=== PATIENT | male | born 1990 | race African-American/Black ===

== ENCOUNTER 2016-09-23 09:59 | Inpatient (IN) ==
--- NOTE | 2016-09-23 10:04 | Emergency Department Note ---
Arrival - Arrival Time Seen by Provider: 09/23/16 10:01 - History of Present Illness HPI Narrative: This patient came into the hospital with cough and shortness of breath with chest pain for about a week and he collapsed in the waiting room was brought immediately back to room 8. He quickly regained consciousness when she was in the bed and states that he is having chest pain and problems breathing. He has no significant past medical history other than hidradenitis which was excised in both axilla had skin grafts placed. He does smoke cigarettes and drink alcohol and also has a history of drug use. Allergies/Adverse Reactions: Allergies Allergy/AdvReac Type Severity Reaction Status Date / Time guaifenesin [From Robitussin] Allergy ANAPHYLAXIS Verified 12/08/15 01:52 iodine Allergy ANAPHYLAXIS Verified 09/23/16 10:05 Home Medications: Home Medications Medication Instructions Recorded Confirmed Type No Known Home Medications [No 09/23/16 09/23/16 History Known Home Medications] Review of System - Review of System Constitutional: Present: as per HPI Eyes: Present: as per HPI Head/Ears/Nose/Throat: Present: see HPI Respiratory: Present: as per HPI Cardiovascular: Present: as per HPI Gastrointestinal: Present: as per HPI Genitourinary male: Present: as per HPI Musculoskeletal: Present: as per HPI Skin: Present: as per HPI Neurological: Present: as per HPI Psychiatric: Present: as per HPI Endocrine: Present: as per HPI Hematological/Lymphatic: Present: as per HPI Allergic/Immunologic: Present: as per HPI Medical,Surgical,& Family Hx - Medical History Musculoskeletal: History of: Musculoskeletal Problems (skin graft from left thigh to left axilla 2012) - Surgical History Neurologic Surgeries: Patient denies: Neurologic Surgery - Family History Family History: Reports;: Family Hypertension (mother) - Social History Smoking Status: Current every day smoker Exam Vital Signs: Vital Signs Temperature 99.4 F 09/23/16 10:01 Pulse Rate 130 H 09/23/16 10:01 Respiratory Rate 20 09/23/16 10:01 Blood Pressure 125/87 09/23/16 10:01 O2 Sat by Pulse Oximetry 95 09/23/16 10:01 - General General appearance: alert, in distress - Head Head exam: Present: atraumatic, normocephalic - Eye Eye exam: Present: normal appearance, PERRL, EOMI. Absent: scleral icterus - ENT ENT exam: Present: normal exam - Neck Neck exam: Present: normal inspection, full ROM - Chest Chest inspection: Present: normal inspection, symmetric chest wall rise. Absent : tenderness - Respiratory Respiratory exam: Present: normal lung sounds bilaterally. Absent: accessory muscle use, prolonged expiratory phase - Cardiovascular Cardiovascular exam: Present: normal rhythm, tachycardia - Abdominal Exam Abdominal exam: Present: soft, normal bowel sounds. Absent: distention, tenderness - Extremities Exam Extremities exam: Present: normal inspection - Back Exam Back exam: Present: normal inspection - Neurological Exam Neurological exam: Present: alert, oriented X3 - Psychiatric Psychiatric exam: Present: normal affect, normal mood - Skin Skin exam: Present: warm, dry Course Course Narrative: This patient was evaluated in the ER with some lab work as well as EKG and chest x-ray and he was found to have an elevated d-dimer with essentially a normal chest x-ray as well as an ABG that showed a respiratory alkalosis with hypoxemia. This is all concerning for pulmonary embolism along with his clinical evaluation so he was started on a heparin drip and he was sent to the nuclear medicine testing for a VQ scan given his anaphylactic iodine allergy and the fact that his creatinine is 1.7. An ultrasound of his legs was also ordered to evaluate for DVT. I discussed his care with the hospitalist on-call and they will come and see him shortly. We ordered a hypercoagulable workup as well. Results - Labs CBC & BMP: 09/23/16 10:09 09/23/16 10:09 Disposition Clinical Impression: Pulmonary embolism, Upper respiratory infection Case discussed with: patient Disposition: Still a Patient Condition: Guarded Instructions: Pulmonary Embolism (GEN) Time of Disposition: 11:21
[2016-09-23] MEDS ORDERED: LACTATED RINGERS 2,000 ML IV ONE (10:17)
[2016-09-23] MEDS ORDERED: SODIUM CHLORIDE 0.9% 2,000 ML IV STA (10:18)
[2016-09-23 10:22] LABS: Basophils # 0.1 10*3/uL (0.0-0.2); Basophils % 0.6 % (0.0-0.8); Eosinophils % 18.5 % (0.00-10.9); Hematocrit 43.4 VOL% (42.0-52.0); Hemoglobin 14.3 GM/DL (14.0-18.0); Immature Granulocytes % 0.3 %; Immature Granulocytes Absolute 0.05 #; Lymphocytes # 3.7 10*3/uL (1.4-4.0); Lymphocytes % 23.2 % (21.2-54.2); Mean Corpuscular HGB Conc 32.9 GM/DL (32-36); Mean Corpuscular Hemoglobin 28 PG (27-34); Mean Corpuscular Volume 85.9 FL (87-102); Mean Platelet Volume 10.5 FL (9.6-12.0); Monocytes # 1.2 10*3/uL (0.11-0.8); Monocytes % 7.5 % (1.7-12.7); Neutrophils % 49.9 % (38.7-73.9); Platelet Count 278 10*3/uL (130-400); Red Blood Count 5.05 10*6/uL (3.8-5.5); Red Cell Distribution Width 12.8 % (9.3-17.3); White Blood Count 16.1 10*3/uL (4.5-13.71)
[2016-09-23] MEDS ORDERED: cefTRIAXone 1,000 MG in SODIUM CHLORIDE 0.9% 100 ML IV STA (10:30)
--- NOTE | 2016-09-23 10:41 | XRay Report ---
XR chest 1V portable Indication: Cough, dyspnea Comparison: Chest x-ray dated August 03, 2016 Technique: Single frontal view of the chest Findings: Cardiomediastinal silhouette is stable in configuration. Mild left basilar atelectasis suggested. No pneumothorax. Osseous and surrounding soft tissue structures appear grossly unchanged. IMPRESSION: Mild left basilar atelectasis. PROCEDURE INTERPRETED AT [facility] DEPARTMENT OF RADIOLOGY Final Report Signed by: Dr Jose Lai
[2016-09-23 10:45] LABS: Calcium 8.1 MG/DL (8.5-10.1); Magnesium 2.1 MG/DL (1.8-2.4); Osmolality,Calculated 278.5 MOS/KG (273-304); Potassium 4.2 MMOL/L (3.5-5.1)
[2016-09-23 10:45] LABS: ABG Base Excess -20.5 MMOL/L (-2.5-2.5); ABG HCO3 8.2 MMOL/L (20-26); ABG Oxygen Saturation 32.6 % (95-100); ABG PH 7.373 (7.35-7.45); ABG TCO2 5.4 MMOL/L (23-27)
[2016-09-23 10:47] LABS: Lactic Acid 2.5 MMOL/L (0.4-2.0)
[2016-09-23 10:48] LABS: Eosinophils 27 % (0-10); Lymphocytes 22 % (20-55); Platelet Estimate Normal; Segmented Neutrophils 45 % (50-85); Total Cells Counted 100
[2016-09-23 10:49] LABS: ABG PCO2 9.3 MM HG (35-48); ABG PO2 23.3 MM HG (80-95)
[2016-09-23 10:49] LABS: Hypochromasia Slight
[2016-09-23] MEDS ORDERED: cefTRIAXone 1,000 MG VIAL ONE (10:56)
[2016-09-23 11:11] LABS: ABG Base Excess -0.7 MMOL/L (-2.5-2.5); ABG HCO3 23.7 MMOL/L (20-26); ABG Oxygen Saturation 91.1 % (95-100); ABG PCO2 24.5 MM HG (35-48); ABG PO2 56.8 MM HG (80-95); ABG TCO2 17.8 MMOL/L (23-27)
[2016-09-23] MEDS ORDERED: HEPARIN 5,000 UNIT/1 ML VIAL IV ONE (11:12)
[2016-09-23] MEDS ORDERED: HEPARIN DRIP 25,000 UNITS/500 ML PREMIX IV ONE (11:17)
[2016-09-23] MEDS ORDERED: HEPARIN 5,000 UNIT/1 ML VIAL ONE (11:17)
[2016-09-23 11:32] LABS: INR 1.1; PT Patient Result 11.9 SECS; Partial Thromboplastin Time 32.7 SECS (0-40)
--- NOTE | 2016-09-23 11:40 | EKG Report ---
Stationary ECG Study [facility] Emergency Department ER Test Date: 09/23/2016 10:03:25 AM Pat Name: EVERARDO NINA Department: Room: Gender: M Practice Advisor: MARTIN Espinal : 1990 Requested by: Stuart Elmore Order Number: [id number] Reading MD: CATHI GIBSON Intervals [place] Rate: 129 P: 66 WI: 142 QRS: 75 QRSD: 92 T: 27 QT: 324 QTc: 400 Interpretive Statements SINUS TACHYCARDIA NONSPECIFIC T-WAVE ABNORMALITY ABNORMAL RHYTHM ECG Electronically Signed On 09-23-16 13:26:55 [employer]OL SMITH by CATHI GIBSON [email or web address]
[2016-09-23 11:43] LABS: Barbiturates Screen,Urine Negative (Negative); Benzodiazepines Screen,Urine Negative (Negative); Cannabinoid Screen,Urine Negative (Negative); Opiate Screen,Urine Negative (Negative); Phencyclidine Screen,Urine Negative (Negative)
[2016-09-23 11:53] LABS: Albumin 2.6 G/DL (3.4-5.0); Bilirubin,Direct 0.1 MG/DL (0.0-0.20); Bilirubin,Indirect 0.6 MG/DL (0.0-1.0); Bilirubin,Total 0.7 MG/DL (0.2-1.0); Total Protein 9.1 G/DL (6.4-8.3)
[2016-09-23] MEDS: HEPARIN DRIP 25,000 UNITS/500 ML PREMIX IV SCH ×2 (11:54→22:13)
--- NOTE | 2016-09-23 12:38 | Hospitalist History & Physical ---
<Lizzette Hernandez - Last Filed: 09/23/16 12:23> Assessment and Plan - Time spent with patient Time spent with patient: Greater than 30 minutes (due to assessment, plan and documentation.) (1) Acute dyspnea Status: Acute Assessment and plan: admit to tele awaiting results of VQ scan if VQ negative, will obtain ECHO coagulopathy panel has been obtained from ED Current Visit: No (2) Cocaine abuse Status: Acute Current Visit: No History of Present Illness Chief complaint: cough, fever x 3 weeks. History of present illness: Mr. Espinal is a 26 year old male who presented to the ED today to be seen for complaints of cough and fever for 2-3 weeks. While in the ER waiting area, he passed out. He was taken to the back and work up was initiated. CXR was negative for acute pathology, and his heart is really not enlarged. Labs revealed WBC 16.1 , respiratory alkalosis, troponin 0.410, and elevated eosinophil count at 27. Of note, after he was examined, his urine drug screen returned positive for cocaine. He did state that he smoked about 5 cigarettes a day and did not use illicit drugs. Lab called with a critical value on his D- dimer of > 35.2. A V/Q lung scan is pending at this time. There is a concern for pulmonary embolus. He states that he has no known cardiac, or lung history , not even as a child, but does state that about 1 month ago he was treated for a pneumonia. He denies a family history of heart or lung disease that he is aware of. He states that he has had a cough productive of yellow sputum. He has no appetite and states that if he attempts to he, he immediately vomits it back up. He can tolerate water, but this makes him nauseated as well. He has a surgical history of skin grafts. His sats are 94% on RA, but he is tachypneic at about 32 breaths per minute. He is also tachy in the 130-140's. Denies taking any sinus or cold medications. He is on no regular home medications and does not have a history of chronic medical problems including, DM, HTN. He will be admitted for further workup today. Dr. Elmore has started him on a heparin drip in the ED in anticipation that he will have a clot. There are no contraindications to this. If his VQ is negative, will order an echo as he does have what sounds like an s4 murmur. No CHF seen on cxr. Further plan and addendum to follow by Dr. Evin Stroud. Home Medications Medication Instructions Recorded Confirmed Type No Known Home Medications [No 09/23/16 09/23/16 History Known Home Medications] Allergies Allergy/AdvReac Type Severity Reaction Status Date / Time guaifenesin [From Robitussin] Allergy ANAPHYLAXIS Verified 12/08/15 01:52 iodine Allergy ANAPHYLAXIS Verified 09/23/16 10:05 Medical,Surgical,& Family Hx - Medical History Musculoskeletal: History of: Musculoskeletal Problems (skin graft from left thigh to left axilla 2012) - Surgical History Neurologic Surgeries: Patient denies: Neurologic Surgery - Family History Family History: Reports;: Family Hypertension (mother) - Social History Smoking Status: Current every day smoker Frequency of Alcohol Use: Occasionally Type of Drug Use: Cocaine Marital Status: Unknown Lives With:: Alone Functional capacity: independent ambulation - Constitutional Constitutional: Absent: chills, fatigue - EENT Eyes: Absent: blurry vision, diplopia Ears: Absent: decreased hearing, tinnitus Nose, mouth and throat: Absent: dysphagia, headache(s) - Cardiovascular Cardiovascular: Present: dyspnea, dyspnea on exertion. Absent: chest pain at rest - Respiratory Respiratory: Present: cough, dyspnea, change in phlegm color (yellow sputum). Absent: hemoptysis - Gastrointestinal Gastrointestinal: Present: nausea, vomiting. Absent: abdominal pain - Genitourinary Genitourinary: Absent: difficulty urinating, hematuria - Musculoskeletal Musculoskeletal: Absent: arthralgias, joint swelling - Neurological Neurological: Absent: confusion, dizziness - Psychiatric Psychiatric: Absent: anxiety, confusion, depression - Endocrine Endocrine: Absent: cold intolerance, heat intolerance - Hematologic/Lymphatic Hematologic/Lymphatic: Absent: easy bleeding, easy bruising Exam - Constitutional Vitals: Period Temp Pulse Resp BP Sys/Rodríguez Pulse Ox Last 24 Hr 117-120 28 124-144/90-108 97-100 General appearance: normal weight, no acute distress - Head Head exam: Present: normal inspection, normocephalic - Eye Eye exam: Present: EOMI. Absent: scleral icterus Pupils: Present: MIRANDA, normal accommodation - ENT ENT exam: Present: normal exam, normal oropharynx - Neck Neck exam: Present: normal inspection. Absent: lymphadenopathy - Respiratory Respiratory exam: Present: clear to auscultation bilaterally. Absent: accessory muscle use - Cardiovascular Cardiovascular exam: Present: systolic murmur (s4), tachycardia - GI/Abdominal GI/Abdominal exam: Present: normal bowel sounds. Absent: tenderness - Extremities Exam Extremities exam: Present: normal inspection. Absent: edema - Back Exam Back exam: Present: normal inspection. Absent: muscle spasm - Neurological Exam Neurological exam: Present: alert, oriented X3 - Psychiatric Psychiatric exam: Present: normal affect, normal mood - Skin Skin exam: Present: normal color, warm, dry, intact Results - Labs CBC & BMP: 09/23/16 10:09 09/23/16 10:09 Lab Results: I have reviewed the past 24 hour labs <Evin Stroud - Last Filed: 09/23/16 13:58> Assessment and Plan (1) Pulmonary embolism Status: Acute Assessment and plan: Impression: #1. Pulmonary embolism Plan: I reviewed the lung scan with radiology, and the patient has bilateral upper lobe defects consistent with pulmonary emboli. We have discussed the case with cardiology, and they will proceed with possible catheter directed thrombolysis. Current Visit: Yes History of Present Illness History of present illness: Mr. Espinal is a 26 year old male He reports a subacute onset of dyspnea that has occurred in episodes over the past several months. He had a chest CT about 3 months ago that showed a questionable pulmonary infarct on the right. He was treated as pneumonia. He did not improve. He has been back to the emergency room several times for evaluation of dyspnea. On the morning of presentation, he apparently had a syncopal episode while he was in the waiting room. He has no prior history of any significant medical problems. There is no family history of pulmonary emboli. He has no prior history of any sort of heart disease, including rheumatic fever or cardiac murmur. He's never had asthma or any other pulmonary disease. He's had a cough over the past few weeks that has been productive of green sputum. He denies any hemoptysis. Exam - Constitutional Vitals: Period Temp Pulse Resp BP Sys/Rodríguez Pulse Ox Last 24 Hr 115-120 24-28 117-144/81-108 97-100 The patient appears acutely ill. He is tachypneic and tachycardic at rest. Cardiac examination reveals an S3 that may be right-sided. He also has a 2/6 systolic ejection murmur left sternal border. His lungs are completely clear. Abdomen is soft without mass or tenderness. Extremities are well perfused. There is no peripheral edema. Results - Labs CBC & BMP: 09/23/16 10:09 09/23/16 10:09
--- NOTE | 2016-09-23 12:54 | Nuclear Medicine Report ---
NM lung scan vent and per Indication: Tachycardia, tachypnea, elevated d-dimer. Comparison: AP chest x-ray 09/23/2016. Technique: Ventilation scan of the lungs was performed. 30 mCi of technetium 99m labeled DTPA was administered in aerosolized form, following which planar imaging in the anterior, CZECH, and PAK projections was accomplished. Following this, 5 mCi technetium 99m labeled MAA was injected intravenously and perfusion scanning of the chest was performed in the anterior, CZECH, and PAK projections. Findings: Perfusion imaging demonstrates an unmatched perfusion defect within the upper lateral aspect of the right lung. This is best demonstrated on posterior and LPO images but additionally persists on the RPO images. A second unmatched perfusion defect within the left upper lung is demonstrated. This also appears to represent a moderately large defect. Impression: 1. Moderately large perfusion defects with a matched ventilation defect are noted within the bilateral upper lobes. Using the modified PIOPED criteria, this scan is in the category of high probability for pulmonary embolus. 09/23/2016 12:49 PM PROCEDURE INTERPRETED AT [facility] DEPARTMENT OF RADIOLOGY Final Report Signed by: Dr. Dewayne Kumar
--- NOTE | 2016-09-23 13:11 | Ultrasound Report ---
US venous doppler LE BI Indication: Venous thromboembolism. Comparison: None. Technique: Grayscale, spectral, and color Doppler interrogation of the bilateral lower extremity veins was performed. Augmentation and compression was performed. Findings: Grayscale, color Doppler, and pulsed Doppler evaluation of the veins of the bilateral lower extremity demonstrate no evidence of deep venous thrombosis. Rouleaux flow demonstrated within the left popliteal vein on cine images. IMPRESSION: No evidence of deep venous thrombosis in the bilateral lower extremity. PROCEDURE INTERPRETED AT [facility] DEPARTMENT OF RADIOLOGY Final Report Signed by: Dr Jose Lai
[2016-09-23] MEDS ORDERED: FAMOTIDINE 40 MG TABLET PO ONE (13:21)
[2016-09-23] MEDS ORDERED: diphenhydrAMINE CAP 50 MG CAPSULE PO ONE (13:21)
[2016-09-23] MEDS ORDERED: predniSONE 20 MG TABLET PO ONE (13:24)
[2016-09-23] MEDS ORDERED: FAMOTIDINE 20 MG TABLET ONE (13:27)
[2016-09-23] MEDS ORDERED: diphenhydrAMINE CAP 50 MG CAPSULE ONE (13:27)
[2016-09-23] MEDS ORDERED: predniSONE 20 MG TABLET ONE (13:27)
[2016-09-23] MEDS ORDERED: prednisoLONE 5 MG TABLET PO SCH (13:30)
--- NOTE | 2016-09-23 13:43 | Cardiology Consult Note ---
Assessment and Plan (1) Acute cor pulmonale Status: Acute Assessment and plan: 1. 26-year-old BM smoker recent drug abuser (reports no cocaine inhalation for 2 weeks), with at least 3 month history of dyspnea on exertion with occasional mild hemoptysis and cough, now presents with severe shortness of breath this morning and apparent brief syncopal spell in the emergency room associated with high d-dimer, modest elevated troponin, mild tachycardia, and high probability VQ scan, all suggestive of massive/submassive pulmonary embolus 2. 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 Recommend discontinuing all smoking and illicit drug use 4. Discussed with the patient the risks and benefits of catheter directed thrombolysis versus heparin and subsequent oral anticoagulant; he is agreeable to proceed with catheter directed thrombolysis to get relief sooner sono-guided discussed within the risks and benefits including but not limited to stroke heart attack vascular damage reaction to medicine or dye or blood transfusion, and possible need for surgery. 5. Continue heparin infusion for now with follow-up PTTs; anticipate transition to NOAC in the near future 6. He has a severe allergy to seafood, but head CT chest 3 months ago without difficulty; plan pulmonary arteriogram prior to placing EKOS catheters 7. Lower extremity venous Dopplers are negative, he denies having any complaint of leg swelling Current Visit: Yes (2) Pulmonary embolism Status: Acute Current Visit: Yes History of Present Illness - Consult Narrative History of present illness: Mr. Espinal is a 26 year old male with no known past medical history other than a left axilla skin graft from his left thigh for some "skin condition". He presented trouble with coughing and shortness of breath for over 3 months. He had severe shortness of breath this morning after waking up which prompted to come to the emergency room where he passed out in the waiting room and was found to be hypoxic. He is clearly tachypneic but feeling a little better during my examination. He is not having active chest pains or palpitations. He had some tachycardia earlier. He denies any history of stroke or mini stroke blood clots or bleeding problems in the past. CC: Evin Stroud MD - Home Medications and Allergies Home Medications: Home Medications Medication Instructions Recorded Confirmed Type No Known Home Medications [No 09/23/16 09/23/16 History Known Home Medications] Allergies/Adverse Reactions: Allergies Allergy/AdvReac Type Severity Reaction Status Date / Time guaifenesin [From Robitussin] Allergy ANAPHYLAXIS Verified 12/08/15 01:52 iodine Allergy ANAPHYLAXIS Verified 09/23/16 10:05 - Constitutional Constitutional: Absent: anorexia, chills, fever(s) - Cardiovascular Cardiovascular: Present: as per HPI, dyspnea. Absent: chest pain at rest - Respiratory Respiratory: Present: hemoptysis - Gastrointestinal Gastrointestinal: Absent: abdominal pain Medical,Surgical,& Family Hx - Medical History Musculoskeletal: History of: Musculoskeletal Problems (skin graft from left thigh to left axilla 2012) - Surgical History Neurologic Surgeries: Patient denies: Neurologic Surgery - Family History Family History: Reports;: Family Hypertension (mother) - Social History Smoking Status: Current every day smoker Frequency of Alcohol Use: Occasionally Type of Drug Use: Cocaine Physical Examination Vital Signs Temp Pulse Resp BP Pulse Ox 99.4 F 130 H 20 125/87 95 09/23/16 10:01 09/23/16 10:01 09/23/16 10:01 09/23/16 10:01 09/23/16 10:01 General: Present: Other (mild distress/tachyneic) Neck: Present: Supple Neck, No JVD/HJR Cardiac: Present: S4, No Murmur, Tachycardia Lungs: Present: Decreased Breath Sounds, No Wheezes Abdomen: Present: Soft, Non-Tender Extremities: Present: No Edema Result/EKG - Labs CBC & BMP: 09/23/16 10:09 09/23/16 10:09 Specialty Discharge - Follow Up or Referrals - Discharge Medications No Action No Known Home Medications [No Known Home Medications]
[2016-09-23] MEDS ORDERED: MIDAZOLAM 2 MG/2 ML VIAL ONE (14:16)
[2016-09-23] MEDS ORDERED: HYDROmorphone 2 MG/1 ML VIAL ONE (14:16)
[2016-09-23] MEDS ORDERED: LIDOCAINE 1% 20 ML VIAL ONE (14:19)
[2016-09-23] MEDS ORDERED: ALTEPLASE 2 MG VIAL ONE (14:19)
[2016-09-23] MEDS ORDERED: ALTEPLASE 12 MG in SODIUM CHLORIDE 0.9% 240 ML IV SCH ×2 (15:18→15:37)
--- NOTE | 2016-09-23 16:00 | Cardiology Operative Report ---
Date of Procedure:: 09/23/16 Post-op diagnosis: same Procedure: Procedure performed: 1. Placement of right pulmonary artery catheter for catheter-directed thrombo- lysis of submassive pulmonary embolus through right femoral vein access 2. Placement of left pulmonary artery catheter for catheter-directed thrombolysis of submassive pulmonary embolus through right femoral vein access 3. Pulmonary arteriogram Brief summary: Mr. Espinal presented with prolonged shortness of breath which became severe this morning with associated tachycardia and presyncope with hypoxia, with VQ scan showing high probability for bilateral pulmonary emboli. Description of procedure: After obtaining informed consent the patient transfer the metallurgical lab technician in the right groin was prepped and draped usual sterile fashion. Next a 12 Sami sheath was placed in the right femoral vein using a Seldinger technique after the patient received IV sedation and local anesthetic. Next a bent pigtail catheter was advanced over a J-wire into the proximal PA catheter with only modest difficulty. Pulmonary arteriogram was performed first by hand injection which was not diagnostic. Therefore PA gram was performed 30 mL at 8 mL/s. The wire was then removed and a long J-wire was advanced, and the pigtail catheter was used to may put into the left pulmonary artery with only modest difficulty. Next the catheter was removed, and an EKOS catheter was advanced more distally in the PA without difficulty. The wire was removed, and the coil was advanced discrete into position. Next the pigtail was advanced with a J-wire but I had difficulty crossing into the right PA despite multiple attempts. I therefore changed back and forth to a straight woolly wire, and used a SARGENT catheter intermittently. I eventually was able to advance to the right PA and the catheters was removed. Next an EKOS catheter was advanced in the right PA with no difficulty. The wire was then removed and the cord was advanced discrete into position. Brief stenting was taken to document PA catheter placement. The venous sheath was secured in place, and TPA infusions were started. He is transferred to the CCU/ICU in good condition. There were no complications. Pulmonary arteriogram: Pulmonary arteriogram shows severe near subtotal occlusion of the proximal pulmonary artery, with obvious thrombus, with delayed filling of the inferior PDA branch. There was also obvious significant thrombus in the proximal left pulmonary artery, but was less occlusive than the than the right right, with reasonable but slightly delayed filling of the inferior branch, and very delayed filling of other secondary branches. Impression: 1. Bilateral massive/submassive pulmonary emboli right greater than left as detailed above 2. Status post successful placement of right and left PA catheters for catheter directed thrombolysis from right femoral sheath access Recommendation discussion: We achieved good catheter placement, to treat with catheter directed thrombolysis. I expect some of this clot is denies given the prolonged nature of his symptoms. I will plan to pull the sheaths in the morning, and start high -dose Eliquis at 9 a.m. at 10 mg twice a day. I will plan to hold his heparin infusion at 6 a.m. to facilitate pulling elevation 12 Sami femoral sheath. He 'll be watched closely in the ICU/CCU. Anesthesia: minimal conscious sedation Surgeon / Physician: Kobi Siegel Supervisor [employer]: other Estimated blood loss: minimal Specimens: none sent Condition: stable Disposition: floor
[2016-09-23] MEDS ORDERED: ONDANSETRON 4 MG/2 ML VIAL IV PRN (16:56)
[2016-09-23] MEDS ORDERED: ACETAMINOPHEN 325 MG TABLET PO PRN (16:56)
[2016-09-23] MEDS ORDERED: DOCUSATE SODIUM 100 MG CAPSULE PO PRN (16:56)
[2016-09-23] MEDS ORDERED: ZALEPLON 5 MG CAPSULE PO PRN (16:56)
[2016-09-24 04:06] LABS: Basophils % 0.3 % (0.0-0.8); Eosinophils # 0.1 10*3/uL (0.0-0.87); Eosinophils % 1.1 % (0.00-10.9); Hematocrit 37.9 VOL% (42.0-52.0); Hemoglobin 12.2 GM/DL (14.0-18.0); Immature Granulocytes % 0.4 %; Immature Granulocytes Absolute 0.04 #; Lymphocytes # 1.7 10*3/uL (1.4-4.0); Lymphocytes % 14.9 % (21.2-54.2); Mean Corpuscular HGB Conc 32.2 GM/DL (32-36); Mean Corpuscular Hemoglobin 28 PG (27-34); Mean Corpuscular Volume 85.4 FL (87-102); Mean Platelet Volume 10.8 FL (9.6-12.0); Monocytes # 0.7 10*3/uL (0.11-0.8); Monocytes % 6.3 % (1.7-12.7); Neutrophils # 8.7 10*3/uL (1.4-7.4); Platelet Count 226 10*3/uL (130-400); Red Blood Count 4.44 10*6/uL (3.8-5.5); Red Cell Distribution Width 12.7 % (9.3-17.3); White Blood Count 11.3 10*3/uL (4.5-13.71)
[2016-09-24 05:19] LABS: Albumin 2.1 G/DL (3.4-5.0); Bilirubin,Total 0.5 MG/DL (0.2-1.0); Calcium 7.2 MG/DL (8.5-10.1); Total Protein 7.4 G/DL (6.4-8.3)
[2016-09-24 05:20] LABS: Osmolality,Calculated 281.3 MOS/KG (273-304); Potassium 4.1 MMOL/L (3.5-5.1); Risk Ratio 3.48; Thyroid Stimulating Hormone 0.652 uIU/ml (0.358-3.74); VLDL CHOLESTEROL 11.8 MG/DL
[2016-09-24] MEDS: APIXABAN 5 MG TABLET PO SCH ×2 (08:29→21:35)
[2016-09-24] MEDS: PANTOPRAZOLE 40 MG TABLET PO SCH (08:29)
--- NOTE | 2016-09-24 08:41 | Event Note ---
Procedure: 1. Removal of right and left pulmonary artery catheters (EKOS) 2. Removal of 12 Maori right femoral sheath Manual pressure applied after sheath removal without residual bleeding. There were no complications.
--- NOTE | 2016-09-24 08:47 | Cardiology Progress Note ---
Assessment and Plan (1) Acute cor pulmonale Status: Acute Assessment and plan: 1. 26-year-old BM smoker recent drug abuser (reports no cocaine inhalation for 2 weeks), with at least 3 month history of dyspnea on exertion with occasional mild hemoptysis and cough, now presents with severe shortness of breath this morning and apparent brief syncopal spell in the emergency room associated with high d-dimer, modest elevated troponin, mild tachycardia, and high probability VQ scan, all suggestive of massive/submassive pulmonary embolus 2. 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 Recommend discontinuing all smoking and illicit drug use 4. Discussed with the patient the risks and benefits of catheter directed thrombolysis versus heparin and subsequent oral anticoagulant; he is agreeable to proceed with catheter directed thrombolysis to get relief sooner sono-guided discussed within the risks and benefits including but not limited to stroke heart attack vascular damage reaction to medicine or dye or blood transfusion, and possible need for surgery. 5. Continue heparin infusion for now with follow-up PTTs; anticipate transition to NOAC in the near future 6. He has a severe allergy to seafood, but head CT chest 3 months ago without difficulty; plan pulmonary arteriogram prior to placing EKOS catheters 7. Lower extremity venous Dopplers are negative, he denies having any complaint of leg swelling September 24 update: 1. Status post catheter directed from a lysis of bilateral massive pulmonary emboli, with near resolution of his shortness of breath, and resolution of his tachycardia (his heart rate from 130 bpm on admission down to 88 beats minute this morning); his syncopal spell in the emergency room and severe hypoxia were due to his PE 2. Severely enlarged hypokinetic right ventricle is evidence of his acute cor pulmonale 3. Uncertain etiology for his pulmonary embolus, but coag panel was drawn; we discussed his absolute need to stop all smoking cocaine use (he denies using any cocaine for the last 2 weeks, but is positive on his drug screen, suggesting he has had it recently) 4. Start low-dose Toprol and lisinopril to help his right ventricle recover 5. To be transferred to telemetry mid day he has no problems clinically or in his access site (pulled his 12 [place] right femoral venous sheath after removing his EKOS catheters) 6. Starting high dose Eliquis 10 mg twice a day this morning (to be taken for 7 days and then transition to 5 mg twice a day); his heparin infusion was discontinued; I stressed the importance of him taking this without fail to avoid return/worsening of his pulmonary embolus Current Visit: Yes (2) Pulmonary embolism Status: Acute Current Visit: Yes Cardiology - PN: Subj Interval history: Mr. castellano reports significant improvement in his shortness of breath. His tachycardia is now resolved. He has had no bleeding problems during the night. He is not having chest pain or belly pain nausea or vomiting. He is having no dizziness. Exam (Progress Note) - Constitutional Vitals: Period Temp Pulse Resp BP Sys/Rodríguez Pulse Ox Last 24 Hr 97.5 F-98.7 F 88-120 14-35 112-145/74-108 94-110 General appearance: normal weight, no acute distress - Head Head exam: Present: normal inspection, normocephalic, atraumatic - Respiratory Respiratory exam: Present: clear to auscultation bilaterally. Absent: stridor, wheezes - Cardiovascular Cardiovascular exam: Present: regular rate and rhythm. Absent: rubs, systolic murmur - GI/Abdominal GI/Abdominal exam: Present: soft. Absent: tenderness - Extremities Exam Extremities exam: Absent: edema - Neurological Exam Neurological exam: Present: alert, oriented X3 - Psychiatric Psychiatric exam: Present: normal affect, normal mood Result/EKG - Labs CBC & BMP: 09/24/16 03:53 09/24/16 03:53 Labs: Laboratory Results - last 24 hr 09/23/16 09/23/16 09/24/16 15:30 22:06 03:53 WBC 11.3 RBC 4.44 Hgb 12.2 L D Hct 37.9 L MCV 85.4 L MCH 28 MCHC 32.2 RDW 12.7 Plt Count 226 MPV 10.8 Neut % (Auto) 77.0 H Lymph % (Auto) 14.9 L [place] % (Auto) 6.3 Eos % (Auto) 1.1 Baso % (Auto) 0.3 Neut # (Auto) 8.7 H Lymph # (Auto) 1.7 [place] # (Auto) 0.7 Eos # (Auto) 0.1 Baso # (Auto) 0.0 Immature Gran % 0.4 Nucleated RBC % 0.0 Immature Gran # 0.04 Nucleated RBCs # 0.00 Circ Anticoag PTT 89.3 H D 60.9 H D Sodium Potassium Chloride Carbon Dioxide Anion Gap BUN Creatinine GFR Calculation BUN/Creatinine Ratio Glucose Calculated Osmolality Calcium Total Bilirubin AST ALT Alkaline Phosphatase B-Natriuretic Peptide Total Protein Albumin Globulin Albumin/Globulin Ratio Triglycerides Cholesterol LDL Cholesterol VLDL Cholesterol HDL Cholesterol Heart Disease Risk Ratio [facility] 3rd Generation 09/24/16 09/24/16 09/24/16 03:53 03:53 03:53 WBC RBC Hgb Hct MCV MCH MCHC RDW Plt Count MPV Neut % (Auto) Lymph % (Auto) [place] % (Auto) Eos % (Auto) Baso % (Auto) Neut # (Auto) Lymph # (Auto) [place] # (Auto) Eos # (Auto) Baso # (Auto) Immature Gran % Nucleated RBC % Immature Gran # Nucleated RBCs # Circ Anticoag PTT 62.6 H Sodium 141 Potassium 4.1 Chloride 108 H Carbon Dioxide 21 Anion Gap 16.1 H BUN 14 Creatinine 1.10 GFR Calculation 162 BUN/Creatinine Ratio 12.00 Glucose 100 Calculated Osmolality 281.3 Calcium 7.2 L Total Bilirubin 0.50 AST 683 H ALT 417 H Alkaline Phosphatase 64 B-Natriuretic Peptide 395 H Total Protein 7.4 Albumin 2.1 L Globulin 5.3 H Albumin/Globulin Ratio 0.3 L Triglycerides 59 Cholesterol 115 LDL Cholesterol 72.0 VLDL Cholesterol 11.8 HDL Cholesterol 33 L Heart Disease Risk Ratio 3.48 TSH 3rd Generation 0.652 Specialty Discharge - Follow Up or Referrals - Discharge Medications No Action No Known Home Medications [No Known Home Medications]
[2016-09-24] MEDS ORDERED: METOPROLOL SUCCINATE XL 25 MG TABLET PO SCH (09:00)
[2016-09-24] MEDS: LISINOPRIL 10 MG TABLET PO SCH (09:02)
--- NOTE | 2016-09-24 09:24 | EKG Report ---
Stationary ECG Study [facility] Test Date: 09/24/2016 9:22:52 AM Pat Name: EVERARDO NINA Department: Room: 128 Gender: M Supervisor Frame Sample And Pattern: ELLE : 1990 Requested by: Kobi Madsen Order Number: [id number] Radha MD: SANDY ARNDT Intervals [place] Rate: 93 P: 64 LA: 132 QRS: 95 QRSD: 110 T: -17 QT: 392 QTc: 443 Interpretive Statements SINUS RHYTHM NONSPECIFIC T-WAVE ABNORMALITY Electronically Signed On 09-25-16 11:29:19 HAND SALTER by SANDY ARNDT [email or web address]
--- NOTE | 2016-09-24 15:56 | Hospitalist Progress Note ---
Assessment and Plan (1) Pulmonary embolism Status: Acute Assessment and plan: s/p ecos, stop smoking and antithrombin III low, eliquis 10 mg po bid Current Visit: Yes (2) Cocaine abuse Status: Acute Current Visit: No (3) Acute cor pulmonale Status: Acute Assessment and plan: echo shows normal LV but increase right heart pressure due to PE Current Visit: Yes Hospitalist: Subjective Interval history: Patient underwent a because yesterday for a large PE. No evidence of DVT on venous Doppler. Exam - Constitutional Vitals: Period Temp Pulse Resp BP Sys/Rodríguez Pulse Ox Last 24 Hr 97.5 F-98.9 F 88-119 14-35 105-145/69-95 92-110 Exam: HR-tachy lungs-ctab GI-+bs soft and nt neuro alert and oriented times 3, motor 5/5 psych normal mood and affect Results - Labs CBC & BMP: 09/24/16 03:53 09/24/16 03:53 Lab Results: I have reviewed the past 24 hour labs Labs: Antithrombin III low at 72. - Diagnostic Findings Procedure: Ultrasound: report reviewed by me (Venous Doppler negative), X-ray: report reviewed by me (VQ showed perfusion defect in bilateral upper lobe) Specialty Discharge - Follow Up or Referrals - Discharge Medications No Action No Known Home Medications [No Known Home Medications]
--- NOTE | 2016-09-25 08:08 | ECHO Report ---
Martin Espinal Exam Date: 09/23/2016 13:44 Referring Physician: Technologist: Jameel Diallo Age: 26 Ht (in): Wt (lb): Gender: M Exam Location: [facility] Echo Indications: Acute dysnea, upper resp inf., Rt. lower lobe pneumonia BP: / HR: Rhythm: Sinus Technical Quality: IMPRESSIONS Severely enlarged right ventricle which is severely hypokinetic 1+ concentric LVH Normal LV systolic function with ejection fraction estimate to be 60% without segmental wall motion normality 1-2+ tricuspid regurgitation with RV systolic pressure estimated 55 mmHg plus right atrial pressure An elliptical 2.3 x 2.9 cm echodense mass is attached to the left side of the atrial septum suggestive of myxoma; there is a somewhat mobile component to this, but also a "flagella-like" mobile portion extending as far as the mitral valve annulus MEASUREMENTS (Male / Female) Normal Values 2D ECHO LV Diastolic Diameter PLAX 4.1 cm 4.2 - 5.9 / 3.9 - 5.3 cm LV Systolic Diameter PLAX 3.1 cm LV Fractional Shortening PLAX 24.1 % IVS Diastolic Thickness 1.5 cm 0.6 - 1.0 / 0.6 - 0.9 cm LVPW Diastolic Thickness 1.3 cm 0.6 - 1.0 / 0.6 - 0.9 cm RV Internal Dim ED PLAX 4.5 cm Aortic Root Diameter 2.8 cm LA Systolic Diameter LX 3.8 cm 3.0 - 4.0 / 2.7 - 3.8 cm DOPPLER TR Peak Velocity 371.0 cm/s TR Peak Gradient 55.1 mmHg FINDINGS Left Ventricle Moderately increased septal wall thickness. Mild concentric left ventricular hypertrophy. Left ventricular ejection fraction is estimated at 50-55 %. Right Ventricle Moderately increased right ventricular size. Right Atrium Moderately increased right atrial size. Left Atrium Normal left atrial size. Left atrial mass suggestive of myxoma. Mitral Valve Mildly thickened mitral valve with mild mitral regurgitation. Aortic Valve The aortic valve is trileaflet, delicate and has normal motion. Tricuspid Valve Morphologically normal tricuspid valve. Moderate tricuspid valve regurgitation. Tricuspid regurgitation velocities suggest a PAP of 55.1mmHg + RAP. Pulmonic Valve Morphologically normal pulmonic valve. Pericardium No pericardial effusion. +Pleural effusion. Aorta Normal size aortic root and proximal ascending aorta. Kobi Siegel (Electronically Signed) Final Date: 25 September 2016 08:07
[2016-09-25] MEDS: APIXABAN 5 MG TABLET PO SCH (08:55)
[2016-09-25] MEDS: LISINOPRIL 10 MG TABLET PO SCH (08:55)
[2016-09-25] MEDS: PANTOPRAZOLE 40 MG TABLET PO SCH (08:55)
[2016-09-25] MEDS: METOPROLOL SUCCINATE XL 50 MG TABLET PO SCH (08:55)
[2016-09-25 08:59] LABS: Basophils # 0.1 10*3/uL (0.0-0.2); Basophils % 0.5 % (0.0-0.8); Eosinophils % 17.9 % (0.00-10.9); Hematocrit 41.9 VOL% (42.0-52.0); Hemoglobin 13.5 GM/DL (14.0-18.0); Immature Granulocytes % 0.5 %; Immature Granulocytes Absolute 0.05 #; Lymphocytes # 2.3 10*3/uL (1.4-4.0); Lymphocytes % 21.1 % (21.2-54.2); Mean Corpuscular HGB Conc 32.2 GM/DL (32-36); Mean Corpuscular Hemoglobin 28 PG (27-34); Mean Corpuscular Volume 86.7 FL (87-102); Mean Platelet Volume 10.7 FL (9.6-12.0); Monocytes # 0.6 10*3/uL (0.11-0.8); Monocytes % 5.7 % (1.7-12.7); Neutrophils % 54.3 % (38.7-73.9); Platelet Count 288 10*3/uL (130-400); Red Blood Count 4.83 10*6/uL (3.8-5.5); Red Cell Distribution Width 12.6 % (9.3-17.3)
[2016-09-25] MEDS: BENZONATATE 100 MG CAPSULE PO PRN ×2 (09:09→21:10)
--- NOTE | 2016-09-25 09:18 | Cardiology Progress Note ---
Assessment and Plan (1) Acute cor pulmonale Status: Acute Assessment and plan: 1. 26-year-old BM smoker recent drug abuser (reports no cocaine inhalation for 2 weeks), with at least 3 month history of dyspnea on exertion with occasional mild hemoptysis and cough, now presents with severe shortness of breath this morning and apparent brief syncopal spell in the emergency room associated with high d-dimer, modest elevated troponin, mild tachycardia, and high probability VQ scan, all suggestive of massive/submassive pulmonary embolus 2. 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 Recommend discontinuing all smoking and illicit drug use 4. Discussed with the patient the risks and benefits of catheter directed thrombolysis versus heparin and subsequent oral anticoagulant; he is agreeable to proceed with catheter directed thrombolysis to get relief sooner sono-guided discussed within the risks and benefits including but not limited to stroke heart attack vascular damage reaction to medicine or dye or blood transfusion, and possible need for surgery. 5. Continue heparin infusion for now with follow-up PTTs; anticipate transition to NOAC in the near future 6. He has a severe allergy to seafood, but head CT chest 3 months ago without difficulty; plan pulmonary arteriogram prior to placing EKOS catheters 7. Lower extremity venous Dopplers are negative, he denies having any complaint of leg swelling September 24 update: 1. Status post catheter directed from a lysis of bilateral massive pulmonary emboli, with near resolution of his shortness of breath, and resolution of his tachycardia (his heart rate from 130 bpm on admission down to 88 beats minute this morning); his syncopal spell in the emergency room and severe hypoxia were due to his PE 2. Severely enlarged hypokinetic right ventricle is evidence of his acute cor pulmonale 3. Uncertain etiology for his pulmonary embolus, but coag panel was drawn; we discussed his absolute need to stop all smoking cocaine use (he denies using any cocaine for the last 2 weeks, but is positive on his drug screen, suggesting he has had it recently) 4. Start low-dose Toprol and lisinopril to help his right ventricle recover 5. To be transferred to telemetry mid day he has no problems clinically or in his access site (pulled his 12 [place]ili right femoral venous sheath after removing his EKOS catheters) 6. Starting high dose Eliquis 10 mg twice a day this morning (to be taken for 7 days and then transition to 5 mg twice a day); his heparin infusion was discontinued; I stressed the importance of him taking this without fail to avoid return/worsening of his pulmonary embolus September 25 update: 1. Despite improving shortness of breath, he still has dyspnea on exertion walking across the room; he had 94% sats on 2 L this morning 2. Acute cor pulmonale from massive bilateral pulmonary emboli, some of which is fairly chronic; I suspect discontinued dyspnea is related to the organized thrombus portion of his PEs that did not dissolve; continue Eliquis 10 mg for one week total, with plans to decrease to 5 mg twice a day after that time. 3. Continue low-dose WALDO inhibitor, and increase Toprol to 50 mg per day, to treat his right heart failure; right ventricle is severely enlarged hypokinetic 4. 2.3 x 2.9 cm mass noted attached to the left side of atrial septum with a mobile component; this is most consistent with atrial myxoma, he has no left- sided/cardioembolic symptoms so this is likely an incidental finding. 5. Would check ABG in the morning and consult pulmonary service, as well as check CT chest, to reassess, given his persistent dyspnea and lack of clear etiology for his pulmonary embolus (other than increased risks with smoking and cocaine use) 6. Hypercapnic coagulable panel was drawn in the ER; consider consulting hematology in the morning Current Visit: Yes (2) Pulmonary embolism Status: Acute Current Visit: Yes Cardiology - PN: Subj Interval history: Mr. castellano shortness of breath is much improved, but he still be short of breath chest ambulate short distances. He is not up chest discomfort presyncope or syncope. He has not had any swelling or bleeding problems. Exam (Progress Note) - Constitutional Vitals: Period Temp Pulse Resp BP Sys/Rodríguez Pulse Ox Last 24 Hr 97.2 F-98.9 F 96-108 18-24 105-130/63-89 92-100 General appearance: normal weight, mild distress - Head Head exam: Present: normal inspection, normocephalic, atraumatic - Neck Neck exam: Present: normal inspection - Respiratory Respiratory exam: Present: decreased breath sounds. Absent: wheezes - Cardiovascular Cardiovascular exam: Present: regular rate and rhythm, tachycardia. Absent: gallop, rubs - GI/Abdominal GI/Abdominal exam: Present: soft. Absent: tenderness - Extremities Exam Extremities exam: Absent: edema Result/EKG - Labs CBC & BMP: 09/25/16 08:35 09/24/16 03:53 Labs: Laboratory Results - last 24 hr 09/23/16 09/24/16 09/25/16 11:37 09:38 08:35 WBC 11.0 RBC 4.83 Hgb 13.5 L Hct 41.9 L MCV 86.7 L MCH 28 MCHC 32.2 RDW 12.6 Plt Count 288 D MPV 10.7 Neut % (Auto) 54.3 Lymph % (Auto) 21.1 L [place] % (Auto) 5.7 Eos % (Auto) 17.9 H Baso % (Auto) 0.5 Neut # (Auto) 6.0 Lymph # (Auto) 2.3 [place] # (Auto) 0.6 Eos # (Auto) 2.0 H Baso # (Auto) 0.1 Immature Gran % 0.5 Nucleated RBC % 0.0 Immature Gran # 0.05 Nucleated RBCs # 0.00 Circ Anticoag PTT 32.7 D Antithrombin 72 L Specialty Discharge - Follow Up or Referrals - Discharge Medications No Action No Known Home Medications [No Known Home Medications]
[2016-09-25 09:24] LABS: Alanine Aminotransferase 270 U/L (16-61); Albumin 2.2 G/DL (3.4-5.0); Alkaline Phosphatase 67 U/L (45-117); Aspartate Amino Transferase 168 U/L (0-37); Bilirubin,Total < 0.39 MG/DL (0.2-1.0); Blood Urea Nitrogen 17 MG/DL (7-18); Calcium 7.7 MG/DL (8.5-10.1); Glucose 99 MG/DL (74-106); Osmolality,Calculated 287.8 MOS/KG (273-304); Potassium 3.8 MMOL/L (3.5-5.1); Sodium 144 MMOL/L (136-145); Total Protein 7.1 G/DL (6.4-8.3)
[2016-09-25] MEDS: NICOTINE 21 MG/24 HR PATCH TRANSDERM SCH (10:17)
--- NOTE | 2016-09-25 10:39 | CT Report ---
History: Massive PE. Hypoxia Date: 09/25/2016 Study: CT chest with IV contrast with pulmonary embolus technique Comparison exam: CT chest June 08, [address] sections were obtained through the lungs following the IV administration of 100 mL of Omnipaque 350 without immediate complication. Multiplanar reconstruction images are also evaluated. Total DLP measures 446.4 mGy*cm. Preliminary verbal report was given to Naima on Telemetry at 10:25 AM. Critical test result There is a large amount of intraluminal filling defect compatible with acute PE in the distal aspect of the main right branch of the pulmonary artery with extension into the right upper lobe and descending branches of the right pulmonary artery. Clot also extends into segmental branches of the right upper lobe, right middle lobe, and lower lobe. There is also clot in the distal most main left pulmonary artery branch with extension into left upper lobe and descending left pulmonary arterial branches and extension into left upper lobe and left lower lobe segmental branches, though not as prominent as on the right. The right ventricle to left ventricle ratio measures approximate 1.8. There is a moderate to large amount of left pleural effusion and moderate right pleural effusion. There is no thoracic aortic aneurysm or dissection. There is nonspecific mild patchy and groundglass infiltrate scattered in the upper lobes, right middle lobe, and lower lobes. Impression: There is evidence of acute pulmonary embolic disease bilaterally, right more severe than left. Details above PROCEDURE INTERPRETED AT [facility] DEPARTMENT OF RADIOLOGY Final Report Signed by: Dr. Hemalatha Bear
[2016-09-25 12:35] LABS: Eosinophils 3 % (0-10); Hypochromasia Slight; Lymphocytes 21 % (20-55); Platelet Estimate Adequate; Segmented Neutrophils 67 % (50-85); Total Cells Counted 100
--- NOTE | 2016-09-25 13:58 | Hospitalist Progress Note ---
Assessment and Plan (1) Pulmonary embolism Status: Acute Assessment and plan: s/p ecos, stop smoking and antithrombin III low, still has extensive PE bilateral, will ask Dr Yin to see, bilateral pleural effusions, convert to lovenox so I can do thoracentesis Current Visit: Yes (2) Acute cor pulmonale Status: Acute Assessment and plan: echo shows normal LV but increase right heart pressure due to PE, may need home oxygen for awhile Current Visit: Yes (3) Bilateral pleural effusion Status: Acute Assessment and plan: may need thoracentesis, lasix IV, convert from eliquis to lovenox Current Visit: Yes Hospitalist: Subjective Interval history: Patient still extremely sob when walking to bathroom. Still requiring 2 liters of oxygen. Spoke with Dr Siegel about the case, will ask pulmonary for their assistance. Spoke with IR Exam - Constitutional Vitals: Period Temp Pulse Resp BP Sys/Rodríguez Pulse Ox Last 24 Hr 97.2 F-98.9 F 96-108 18-22 109-123/60-74 91-96 Exam: HR-tachy lungs-diminished GI-+bs soft and nt neuro alert and oriented times 3, motor 5/5 psych normal mood and affect Results - Labs CBC & BMP: 09/25/16 08:35 09/25/16 08:35 Lab Results: I have reviewed the past 24 hour labs - Diagnostic Findings Procedure: CT - chest: report reviewed by me (extensive PE bilateral remain with bilateral effusions ) Specialty Discharge - Follow Up or Referrals - Discharge Medications No Action No Known Home Medications [No Known Home Medications]
[2016-09-25] MEDS: POTASSIUM CHLORIDE 20 MEQ TABLET PO SCH (14:40)
[2016-09-25] MEDS: FUROSEMIDE 40 MG/4 ML VIAL IV SCH (16:28)
--- NOTE | 2016-09-25 16:43 | Pulmonology Consult Note ---
Assessment and Plan (1) Pulmonary embolism Status: Acute Assessment and plan: Patient with large bilateral PE that likely contributed to his syncope. This will take time to resolve despite EKOS and its not usually indicated to repeat a CT angio the next day. Patient will need lifelong anticoagulation, multiple options depending on his preference (both for convenience and financial reasons) , but the most recent guidelines from ACCP do recommend treatment with a NOAC rather than warfarin. There are no head to head trials among these, so none are recommended over another. Counseled that he will have exertional dyspnea for a while, and not to be discouraged by this. Assess for need for oxygen prior to discharge. Will need to follow up with pulmonary as outpatient Current Visit: Yes (2) Bilateral pleural effusion Status: Acute Assessment and plan: Pleural effusion not surprising given size of PE and cardiac issues. CT overestimates the size of effusions, and these are unlikely to be contributing to his symptoms. He is at significantly higher risk from developing further clot than from the effusions, thus I woudl NOT recommend stopping anticoagulation at any point in the first three months for anything other than a life threatening bleed. Can try diuresis but these will likely resolve on their own. Current Visit: Yes History of Present Illness Chief complaint: PE History of present illness: Mr. Espinal is a 26 year old male Consulted by hospitalist for patient with large PE. Had syncopal episode and was brought to ED, found to have large bilateral PE. Was taken by interventional cardiology for EKOS, with partial resolution of clot. 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 Patients main complaint at this point is exertional dyspnea Home Medications Medication Instructions Recorded Confirmed Type No Known Home Medications [No 09/23/16 09/23/16 History Known Home Medications] Allergies Allergy/AdvReac Type Severity Reaction Status Date / Time guaifenesin [From Robitussin] Allergy ANAPHYLAXIS Verified 12/08/15 01:52 iodine Allergy ANAPHYLAXIS Verified 09/23/16 10:05 12 point system: reviewed and no additional remarkable complaints except as stated Exam (Pulmonay) H&P - Constitutional Vitals: Period Temp Pulse Resp BP Sys/Rodríguez Pulse Ox Last 24 Hr 97.2 F-98.9 F 96-108 18-21 109-123/60-72 91-97 General appearance: normal weight - Head Head exam: Present: normal inspection - ENT ENT exam: Present: normal exam - Respiratory Respiratory exam: Present: clear to auscultation bilaterally. Absent: accessory muscle use, stridor, wheezes - Cardiovascular Cardiovascular exam: Present: regular rate and rhythm - GI/Abdominal GI/Abdominal exam: Present: normal bowel sounds - Extremities Exam Extremities exam: Present: normal inspection Medical,Surgical,& Family Hx - Medical History Psychological: History of: Psychiatric/Substance Abuse Tx No history of: Anxiety Disorders, ADHD, Behavior Problems, Bipolar Disorder, Depression, Previous Suicide Attempt, Schizophrenia, Violent Behavior, Psychiatric Problems Respiratory: History of: Pulmonary Embolism (This admission) Musculoskeletal: History of: Musculoskeletal Problems (skin graft from left thigh to left axilla 2012) Other: History of: Anaphylaxis (Shellfish), Skin Problems (Skin graft to Left armpit) No history of: Cancer, HIV, MRSA - Surgical History Neurologic Surgeries: Patient denies: Neurologic Surgery - Family History Family History: Reports;: Family Hypertension (mother) - Social History Smoking Status: Current every day smoker Frequency of Alcohol Use: Occasionally Type of Drug Use: Cocaine Results - Labs CBC & BMP: 09/25/16 08:35 09/25/16 08:35 Lab Results: I have reviewed the past 24 hour labs - Diagnostic Findings Procedure: Chest x-ray: image reviewed by me (reviewed), CT - chest: image reviewed by me (reviewed) Specialty Discharge - Follow Up or Referrals - Discharge Medications No Action No Known Home Medications [No Known Home Medications]
[2016-09-25] MEDS: ENOXAPARIN 150 MG/ML SYRINGE SUBCUT SCH (21:10)
[2016-09-26 04:52] LABS: ABG Base Excess 1.2 MMOL/L (-2.5-2.5); ABG HCO3 25.5 MMOL/L (20-26); ABG Oxygen Saturation 98.4 % (95-100); ABG PCO2 40.3 MM HG (35-48); ABG PH 7.415 (7.35-7.45); ABG TCO2 22.4 MMOL/L (23-27); Allen Test Positive
[2016-09-26 07:32] LABS: Basophils # 0.1 10*3/uL (0.0-0.2); Basophils % 0.8 % (0.0-0.8); Eosinophils # 2.2 10*3/uL (0.0-0.87); Eosinophils % 20.3 % (0.00-10.9); Hematocrit 40.8 VOL% (42.0-52.0); Hemoglobin 13.3 GM/DL (14.0-18.0); Immature Granulocytes % 0.5 %; Immature Granulocytes Absolute 0.05 #; Lymphocytes # 2.7 10*3/uL (1.4-4.0); Mean Corpuscular HGB Conc 32.6 GM/DL (32-36); Mean Corpuscular Hemoglobin 28 PG (27-34); Mean Corpuscular Volume 85.7 FL (87-102); Mean Platelet Volume 10.7 FL (9.6-12.0); Monocytes # 0.8 10*3/uL (0.11-0.8); Monocytes % 7.5 % (1.7-12.7); Neutrophils % 45.9 % (38.7-73.9); Platelet Count 301 10*3/uL (130-400); Red Blood Count 4.76 10*6/uL (3.8-5.5); Red Cell Distribution Width 12.8 % (9.3-17.3)
--- NOTE | 2016-09-26 07:32 | Cardiology Progress Note ---
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 and moderate TR PA pressure 55 Weight 133 kg Plan Hypercoagulable studies pending Thoracentesis today Currently receiving Lovenox 140 mg subcu every 12 hours RIGOBERTO tomorrow to evaluate left atrium mass Exam (Progress Note) - Constitutional Vitals: Period Temp Pulse Resp BP Sys/Rodríguez Pulse Ox Last 24 Hr 97.2 F-98.9 F 91-107 18-21 111-134/60-79 91-99 Result/EKG - Labs CBC & BMP: 09/25/16 08:35 09/25/16 08:35 Labs: Laboratory Results - last 24 hr 09/25/16 09/25/16 09/26/16 08:35 08:35 04:40 WBC 11.0 RBC 4.83 Hgb 13.5 L Hct 41.9 L MCV 86.7 L MCH 28 MCHC 32.2 RDW 12.6 Plt Count 288 D MPV 10.7 Neut % (Auto) 54.3 Lymph % (Auto) 21.1 L [place] % (Auto) 5.7 Eos % (Auto) 17.9 H Baso % (Auto) 0.5 Neut # (Auto) 6.0 Lymph # (Auto) 2.3 [place] # (Auto) 0.6 Eos # (Auto) 2.0 H Baso # (Auto) 0.1 Total Counted 100 Immature Gran % 0.5 Nucleated RBC % 0.0 Immature Gran # 0.05 Segmented Neutrophils 67 Lymphocytes 21 Monocytes 9 Eosinophils 3 Nucleated RBCs # 0.00 Platelet Estimate Adequate Hypochromasia Slight ABG pH 7.415 ABG pCO2 40.3 ABG pO2 113.0 H ABG HCO3 25.5 ABG Total CO2 22.4 L ABG O2 Saturation 98.4 ABG Base Excess 1.2 FiO2 36.00 Sodium 144 Potassium 3.8 Chloride 108 H Carbon Dioxide 26 Anion Gap 13.8 BUN 17 Creatinine 1.30 GFR Calculation 134 BUN/Creatinine Ratio 13.00 Glucose 99 Calculated Osmolality 287.8 Calcium 7.7 L Total Bilirubin < 0.39 AST 168 H ALT 270 H Alkaline Phosphatase 67 Total Protein 7.1 Albumin 2.2 L Globulin 4.9 H Albumin/Globulin Ratio 0.4 L Specialty Discharge - Follow Up or Referrals - Discharge Medications No Action No Known Home Medications [No Known Home Medications]
[2016-09-26 08:06] LABS: Albumin 2.2 G/DL (3.4-5.0); Bilirubin,Total 0.9 MG/DL (0.2-1.0); Osmolality,Calculated 288.6 MOS/KG (273-304); Total Protein 7.1 G/DL (6.4-8.3)
[2016-09-26] MEDS: FUROSEMIDE 40 MG/4 ML VIAL IV SCH (08:32)
[2016-09-26] MEDS: NICOTINE 21 MG/24 HR PATCH TRANSDERM SCH (08:32)
[2016-09-26] MEDS ORDERED: INFLUENZA VIRUS VACCINE 0.5 ML SYRINGE IM ONE (09:00)
[2016-09-26 10:45] LABS: Eosinophils 16 % (0-10); Hypochromasia 1+; Lymphocytes 20 % (20-55); Microcytosis 2+; Platelet Estimate Adequate; Polychromasia Slight; Segmented Neutrophils 61 % (50-85); Total Cells Counted 100
--- NOTE | 2016-09-26 10:49 | Post Interventional Procedure ---
Pre-op diagnosis: bilateral pleural effusions. Pulmonary artery emboli. Post-op diagnosis: same Procedure: Left side thoracentesis using ultrasound guidance. Contrast: none. Flouroscopy: not utilized. Radiologist: Abhsihek Kumar Area Attendant: Anjum Huizar Anesthesia: local Specimens: other (thoracentesis fluid.) Estimated blood loss: none Complications: none Condition: stable Description/Findings: Blood-tinged pleural fluid was aspirated from the left hemithorax. Please see PACS for for details.
--- NOTE | 2016-09-26 10:49 | Event Note ---
Patient down in IR getting thoracentesis done. Spoke with with mother and , discussed that he will need lifelong anticoagulation. Will need to follow up with pulmonary as outpatient. Will cont to follow along, but no new recs today
[2016-09-26 10:51] LABS: Albumin 2.3 G/DL (3.4-5.0); Total Protein 7.2 G/DL (6.4-8.3)
[2016-09-26] MEDS: LISINOPRIL 10 MG TABLET PO SCH (11:30)
[2016-09-26] MEDS: ENOXAPARIN 150 MG/ML SYRINGE SUBCUT SCH ×2 (11:30→20:27)
[2016-09-26] MEDS: PANTOPRAZOLE 40 MG TABLET PO SCH (11:30)
[2016-09-26] MEDS: POTASSIUM CHLORIDE 20 MEQ TABLET PO SCH (11:30)
[2016-09-26] MEDS: METOPROLOL SUCCINATE XL 50 MG TABLET PO SCH (11:30)
--- NOTE | 2016-09-26 11:41 | Ultrasound Report ---
US thoracentesis Indication: Pleural effusion. Left side pleural effusion. History of pulmonary artery emboli. Comparison: None. Technique: Informed consent was obtained. Patient was brought to interventional radiology suite and ultrasound was utilized to assess the chest for presence of pleural fluid. Once the largest collection of pleural fluid was identified, a ld was made on the skin surface and patient was prepared using maximum sterile barrier. A timeout was called and documented. 1% lidocaine was infiltrated into the skin surface along the expected needle tract. At this point, a small dermatotomy was made and subsequently, safety centesis needle was advanced under aspiration into the fluid collection. As soon as flash occurred, safety centesis catheter was advanced into the fluid collection within the chest. A single ultrasound image was captured and stored documenting positioning of the safety centesis catheter within the pleural fluid. At this point, aspiration of 800 cc in total of fluid was accomplished. Catheter was subsequently removed with no immediate complication. Estimated blood loss less than 5 cc.fluid withdrawn was noted to be blood-tinged. Findings: [id number] left-sided pleural effusion. Impression: 1. Technically successful thoracentesis using ultrasound guidance as detailed. 09/26/2016 11:32 AM PROCEDURE INTERPRETED AT [facility] DEPARTMENT OF RADIOLOGY Final Report Signed by: Dr. Dewayne Kumar
--- NOTE | 2016-09-26 11:43 | XRay Report ---
XR chest inspiration expiratio Indication: Status post left-sided thoracentesis. Comparison: AP chest 09/23/2016 0956 hrs. Technique: AP chest was performed in inspiration and expiration. Findings: There is no evidence of pneumothorax. The chest is essentially stable when compared to previous study. Size of left-sided pleural fluid collection has decreased. Impression: 1. Stable interval appearance of the chest. No evidence of acute complication from recent procedure. 09/26/2016 11:40 AM PROCEDURE INTERPRETED AT [facility] DEPARTMENT OF RADIOLOGY Final Report Signed by: Dr. Dewayne Kumar
[2016-09-26 13:01] LABS: Total Protein,Body Fluid 5.3 G/DL
[2016-09-26 13:20] LABS: INR 1.1; PT Patient Result 12.2 SECS
[2016-09-26 13:53] LABS: Eosinophils,Pleural Fluid 29 %; Lymphocytes,Pleural Fluid 61 %; Neutrophils,Pleural Fluid 10 %
[2016-09-26 13:54] LABS: RBC,Pleural Fluid 56317 T/CUMM
--- NOTE | 2016-09-26 14:09 | Hospitalist Progress Note ---
Assessment and Plan (1) Pulmonary embolism Status: Acute Assessment and plan: s/p ekos, stop smoking and antithrombin III low, still has extensive PE bilateral, cont lovenox will switch back to eliquis after russ Current Visit: Yes (2) Acute cor pulmonale Status: Acute Assessment and plan: echo shows normal LV but increase right heart pressure due to PE, may need home oxygen for awhile Current Visit: Yes (3) Bilateral pleural effusion Status: Acute Assessment and plan: s/p thoracentesis 800 ml of bloody fluid Current Visit: Yes Hospitalist: Subjective Interval history: Status post thoracentesis removed 800 mL's of bloody fluid from the left pleural space. Chest x-ray shows no pneumothorax and the right pleural effusion is small in nature. I am going to restart him on the Eliquis after russ tomorrow Exam - Constitutional Vitals: Period Temp Pulse Resp BP Sys/Rodríguez Pulse Ox Last 24 Hr 97.5 F-98.5 F 87-107 18-21 109-134/64-79 94-100 Exam: HR-tachy lungs-diminished GI-+bs soft and nt neuro alert and oriented times 3, motor 5/5 psych normal mood and affect Results - Labs CBC & BMP: 09/26/16 05:20 09/26/16 05:20 Lab Results: I have reviewed the past 24 hour labs Labs: pleural fluid bloody. elevated wbc due to blood tap - Diagnostic Findings Procedure: Chest x-ray: report reviewed by me (no ptx after tap ) Specialty Discharge - Follow Up or Referrals - Discharge Medications No Action No Known Home Medications [No Known Home Medications]
--- NOTE | 2016-09-27 07:40 | History and Physical Update ---
Sedation H&P Update - History and Physical H&P was reviewed, the patient examined and there: are no changes in the patients condition since last H&P was completed. - Dictation Physical: refer to H&P completed by admitting physician - Physical Exam Mental Status: alert and oriented Heart: regular rate and rhythm Lung: clear to auscultation Abdomen: within normal limits Vitals: within normal limits - Sedation Plan for Sedation: moderate Patient Consent: Procedure disscussed with patient and patinet has consented., Risks and benefits were discussed with patient,including infection,, bleeding, injury to surrounding structures, seizure, temporary nerve, Patient understands and accepts potential risks/benefits and agrees to, proceed. ASA Class: II Airway Assessment: Class II: Soft palate, uvula, fauces visible
[2016-09-27] MEDS ORDERED: MIDAZOLAM 10 MG/2 ML VIAL ONE ×3 (08:20→16:25)
[2016-09-27] MEDS ORDERED: HYDROmorphone 2 MG/1 ML VIAL ONE (08:26)
[2016-09-27] MEDS: NICOTINE 21 MG/24 HR PATCH TRANSDERM SCH (08:49)
[2016-09-27] MEDS: METOPROLOL SUCCINATE XL 50 MG TABLET PO SCH (08:49)
[2016-09-27] MEDS: LISINOPRIL 10 MG TABLET PO SCH (08:49)
[2016-09-27] MEDS: POTASSIUM CHLORIDE 20 MEQ TABLET PO SCH (08:51)
[2016-09-27] MEDS: PANTOPRAZOLE 40 MG TABLET PO SCH (08:51)
[2016-09-27] MEDS: ENOXAPARIN 150 MG/ML SYRINGE SUBCUT SCH ×2 (08:51→11:33)
--- NOTE | 2016-09-27 09:03 | Cardiology Progress Note ---
Cardiology - PN: Subj Interval history: Cardiology note Status post EKOS for bilateral pulmonary emboli September 23 Status post thoracentesis yesterday Breathing improved. Blood pressure 118/70 Regular rhythm no gallop Decreased breath sounds but clear Abdomen benign Plan RIGOBERTO today to evaluate for possible left atrial mass. Procedure, risk and benefits discussed with patient with nurse Delaney present for the entire discussion. All questions answered. He agrees to proceed as outlined Exam (Progress Note) - Constitutional Vitals: Period Temp Pulse Resp BP Sys/Rodríguez Pulse Ox Last 24 Hr 97.5 F-98.9 F 84-102 18-20 109-125/68-77 93-100 Result/EKG - Labs CBC & BMP: 09/26/16 05:20 09/26/16 05:20 Labs: Laboratory Results - last 24 hr 09/26/16 09/26/16 09/26/16 05:12 05:20 10:15 WBC 11.0 RBC 4.76 Hgb 13.3 L Hct 40.8 L MCV 85.7 L MCH 28 MCHC 32.6 RDW 12.8 Plt Count 301 MPV 10.7 Neut % (Auto) 45.9 Lymph % (Auto) 25.0 [place] % (Auto) 7.5 Eos % (Auto) 20.3 H Baso % (Auto) 0.8 Neut # (Auto) 5.0 Lymph # (Auto) 2.7 [place] # (Auto) 0.8 Eos # (Auto) 2.2 H Baso # (Auto) 0.1 Total Counted 100 Immature Gran % 0.5 Nucleated RBC % 0.0 Immature Gran # 0.05 Segmented Neutrophils 61 Lymphocytes 20 Monocytes 3 Eosinophils 16 H Nucleated RBCs # 0.00 Platelet Estimate Adequate Polychromasia Slight Hypochromasia 1+ Microcytosis 2+ INR PT Patient/Control Mix Lactate Dehydrogenase 450 H Total Protein 7.2 Albumin 2.3 L Carcinoembryonic Ag Fluid Glucose Fluid Total Protein Fluid Albumin Fluid LDH Fluid Lipase Pleural pH 8.00 Pleural WBC Pleural RBC Pleural Tot Cell Ct Pleural Neutrophils Pleural Lymphocytes Pleural Eosinophils 09/26/16 09/26/16 09/26/16 12:07 Unknown Unknown WBC RBC Hgb Hct MCV MCH MCHC RDW Plt Count MPV Neut % (Auto) Lymph % (Auto) [place] % (Auto) Eos % (Auto) Baso % (Auto) Neut # (Auto) Lymph # (Auto) [place] # (Auto) Eos # (Auto) Baso # (Auto) Total Counted Immature Gran % Nucleated RBC % Immature Gran # Segmented Neutrophils Lymphocytes Monocytes Eosinophils Nucleated RBCs # Platelet Estimate Polychromasia Hypochromasia Microcytosis INR 1.1 PT Patient/Control Mix 12.2 Lactate Dehydrogenase Total Protein Albumin Carcinoembryonic Ag < 0.5 Fluid Glucose Fluid Total Protein Fluid Albumin Fluid LDH Fluid Lipase Pleural pH Pleural WBC 3192 Pleural RBC [address] 100 Pleural Neutrophils 10 Pleural Lymphocytes 61 Pleural Eosinophils 29 09/26/16 Unknown WBC RBC Hgb Hct MCV MCH MCHC RDW Plt Count MPV Neut % (Auto) Lymph % (Auto) [place] % (Auto) Eos % (Auto) Baso % (Auto) Neut # (Auto) Lymph # (Auto) [place] # (Auto) Eos # (Auto) Baso # (Auto) Total Counted Immature Gran % Nucleated RBC % Immature Gran # Segmented Neutrophils Lymphocytes Monocytes Eosinophils Nucleated RBCs # Platelet Estimate Polychromasia Hypochromasia Microcytosis INR PT Patient/Control Mix Lactate Dehydrogenase Total Protein Albumin Carcinoembryonic Ag Fluid Glucose 70 Fluid Total Protein 5.3 Fluid Albumin 1.8 Fluid LDH 792 Fluid Lipase 51 Pleural pH Pleural WBC Pleural RBC Pleural Tot Cell Ct Pleural Neutrophils Pleural Lymphocytes Pleural Eosinophils Specialty Discharge - Follow Up or Referrals - Discharge Medications No Action No Known Home Medications [No Known Home Medications]
[2016-09-27] MEDS ORDERED: PAPAVERINE 60 MG/2 ML VIAL ONE (10:38)
--- NOTE | 2016-09-27 10:38 | Event Note ---
Young man with bilateral pulmonary emboli. He is getting a RIGOBERTO today. Patient was off the floor when I rounded. I discussed the case with Dr. Sosa yesterday. Agree with her recommendations. Please call if needed further.
--- NOTE | 2016-09-27 10:38 | History and Physical Update ---
Sedation H&P Update - Dictation Physical: refer to H&P completed by admitting physician - Physical Exam Mental Status: alert and oriented Heart: regular rate and rhythm Lung: clear to auscultation Abdomen: within normal limits Vitals: within normal limits - Sedation Plan for Sedation: moderate Patient Consent: Procedure disscussed with patient and patinet has consented., Risks and benefits were discussed with patient,including infection,, bleeding, injury to surrounding structures, seizure, temporary nerve, Patient understands and accepts potential risks/benefits and agrees to, proceed. ASA Class: II
[2016-09-27] MEDS ORDERED: VANCOMYCIN 1,000 MG VIAL ONE (10:39)
--- NOTE | 2016-09-27 10:52 | Hospitalist Progress Note ---
Assessment and Plan (1) Pulmonary embolism Status: Acute Assessment and plan: s/p ekos, Has antithrombin III disorder, Patient still has saddle embolus and will be taken to cardiothoracic surgery for an embolectomy. Dr Schmitz reports I can resume anticoagulation Current Visit: Yes (2) Acute cor pulmonale Status: Acute Current Visit: Yes (3) Bilateral pleural effusion Status: Acute Assessment and plan: s/p thoracentesis 800 ml of bloody fluid Current Visit: Yes Hospitalist: Subjective Interval history: Saw patient prior to the RIGOBERTO by Dr. Hughes and he was feeling okay and sleeping well. Still on oxygen. Dr. vinson called me while he was doing his RIGOBERTO patient has a large saddle embolus across his foramen ovale. Dr. Schmitz from cardiothoracic surgery was there is going to take him for an emergency embolectomy Exam - Constitutional Vitals: Period Temp Pulse Resp BP Sys/Rodríguez Pulse Ox Last 24 Hr 97.5 F-99.0 F 79-102 16-20 109-137/68-77 93-100 Exam: HR-RRR lungs-diminished but clear GI-+bs soft and nt neuro alert and oriented times 3, motor 5/5 psych normal mood and affect Results - Labs CBC & BMP: 09/26/16 05:20 09/26/16 05:20 Lab Results: I have reviewed the past 24 hour labs Specialty Discharge - Follow Up or Referrals - Discharge Medications No Action No Known Home Medications [No Known Home Medications]
[2016-09-27] MEDS ORDERED: PHENYLEPHRINE 1 MG/10 ML SYRINGE IV ONE (11:25)
[2016-09-27] MEDS ORDERED: AMINOCAPROIC ACID 5,000 MG/20 ML VIAL IV ONE (11:25)
[2016-09-27] MEDS ORDERED: VECURONIUM 10 MG VIAL IV ONE (11:25)
[2016-09-27] MEDS ORDERED: CALCIUM CHLORIDE 1,000 MG/10 ML SYRINGE IV ONE ×2 (11:25→11:56)
[2016-09-27] MEDS ORDERED: ETOMIDATE 20 MG/10 ML VIAL IV ONE (11:25)
[2016-09-27] MEDS ORDERED: MINERAL OIL/PETROLATUM OPH OINT 3.5 GM TUBE ONE (11:25)
[2016-09-27] MEDS ORDERED: LIDOCAINE 100 MG/5 ML SYRINGE ONE ×2 (11:25→11:57)
--- NOTE | 2016-09-27 11:48 | ECHO Report ---
Martin Espinal Exam Date: 09/27/2016 08:53 Referring Physician: Technologist: Britney France RDCS Age: 26 Ht (in): Wt (lb): Gender: M Exam Location: [facility] Echo Pre-op Dx: Bilateral pulmonary emboli, Left atrial mass Post-op Dx: BP: / HR: Rhythm: Sinus Technical Quality: Good Specimens Taken Devices Implanted Medications Complications Estimated Blood Loss Proc. Components IMPRESSIONS Left ventricular ejection fraction is estimated at 60 %. Moderately increased right ventricular size. Moderately increased right atrial size. Moderately increased left atrial size. Normal left atrial appendage. Aneurysmal atrial septum. Patent foramen ovale present with a spjls-xe-rehm shunt. Large saddlle thrombus caught in the PFO. Mobile thrombus visualized in LA and RA Morphologically normal mitral valve. Trace mitral valve regurgitation. The aortic valve is trileaflet and has normal motion. No aortic valve regurgitation. Jyly-[id number] tricuspid valve regurgitation. [id number] Morphologically normal pulmonic valve. No pericardial effusion. Normal aorta. MEASUREMENTS (Male / Female) Normal Values FINDINGS Left Ventricle Left ventricular ejection fraction is estimated at 60 % Right Ventricle Moderately increased right ventricular size. Right Atrium Moderately increased right atrial size. Left Atrium Moderately increased left atrial size. LA Appendage Normal left atrial appendage. IA Septum Aneurysmal atrial septum. Patent foramen ovale present with a right-to- left shunt. Large saddlle thrombus caught in the PFO Mitral Valve Morphologically normal mitral valve. Trace mitral valve regurgitation. Aortic Valve The aortic valve is trileaflet and has normal motion. No aortic valve regurgitation. Tricuspid Valve Morphologically normal tricuspid valve. Rvul-sa-yndfuoyr tricuspid valve regurgitation. [id number] Pulmonic Valve Morphologically normal pulmonic valve. Pericardium No pericardial effusion. Aorta Normal aorta. Jordan Hughes (Electronically Signed) Final Date: 27 September 2016 11:47
[2016-09-27] MEDS ORDERED: SODIUM BICARBONATE 50 MEQ/50 ML VIAL IV ONE ×2 (11:56→14:28)
[2016-09-27] MEDS ORDERED: EPINEPHrine 1 MG/10 ML SYRINGE ONE (11:57)
[2016-09-27] MEDS ORDERED: POTASSIUM CHLORIDE RIDER 100 ML IV ONE (11:57)
[2016-09-27] MEDS ORDERED: ATROPINE 1 MG/10 ML SYRINGE ONE (11:57)
[2016-09-27] MEDS ORDERED: ALBUMIN 5% 12.5 GM/250 ML VIAL IV ONE (11:58)
[2016-09-27] MEDS ORDERED: CEFUROXIME 1,500 MG VIAL ONE (12:14)
[2016-09-27 12:18] LABS: ABG Base Excess -0.5 MMOL/L (-2.5-2.5); ABG Oxygen Saturation 98.9 % (95-100); ABG PCO2 52.3 MM HG (35-48); ABG PH 7.315 (7.35-7.45); ABG TCO2 23.6 MMOL/L (23-27); Glucose Heart Surgery 98 MG/DL (74-106); Hemoglobin Heart Surgery 12.7 G/DL (14.0-18.0); Ionized Calcium Arterial 1.19 MMOL/L (1.21-1.46); PCO2 Patient Temp Arterial 52.3 MMHG; PH Patient Temp Arterial 7.315; Patient Temperature 37 CELCIUS; Potassium Heart/CVR 3.8 MMOL/L (3.5-5.1); Sodium Heart/CVR 140 MMOL/L (135-145)
[2016-09-27 12:46] LABS: Homocysteine 12 mcmol/L
[2016-09-27 12:53] LABS: Protein S Activity Plasma 95 % (65 - 160)
[2016-09-27 13:23] LABS: Hematocrit Heart Surgery 29.2 PERCENT (42-52); Hemoglobin Heart Surgery 9.4 G/DL (14.0-18.0); PCO2 Patient Temp Venous 49.6 MM HG; PH Patient Temp Venous 7.344; Potassium Heart/CVR 4.3 MMOL/L (3.5-5.1); VBG Base Excess 0.8 MEQ/L (0-4); VBG HCO3 24.7 MEQ/L (24-28); VBG Oxygen Saturation 69.7 %; VBG PCO2 49.6 MMHG (41-51); VBG PH 7.344
[2016-09-27 13:36] LABS: Protein C Activity Plasma 69 % (70 - 150)
[2016-09-27 14:07] LABS: Hemoglobin Heart Surgery 10.7 G/DL (14.0-18.0); PCO2 Patient Temp Venous 41.2 MM HG; PH Patient Temp Venous 7.382; PO2 Patient Temp Venous 41.5 MM HG; Potassium Heart/CVR 4.1 MMOL/L (3.5-5.1); VBG Base Excess -0.6 MEQ/L (0-4); VBG HCO3 23.6 MEQ/L (24-28); VBG Oxygen Saturation 79.2 %; VBG PCO2 45.3 MMHG (41-51); VBG PH 7.353; VBG PO2 47.6 MMHG (17-40)
[2016-09-27] MEDS ORDERED: DEXTROSE 5% KCL 20 MEQ 20 MEQ/1,000 ML BAG IV ONE (14:27)
[2016-09-27] MEDS ORDERED: PHENYLEPHRINE DRIP 20 MG/250 ML PREMIX IV ONE (14:27)
[2016-09-27] MEDS ORDERED: ALBUMIN 25% 25 GM/100 ML VIAL IV ONE (14:28)
[2016-09-27] MEDS ORDERED: PROTAMINE SULFATE 250 MG/25 ML VIAL IV ONE (14:28)
[2016-09-27] MEDS ORDERED: MAGNESIUM SULFATE 1 GM/2 ML VIAL ONE (14:28)
[2016-09-27] MEDS ORDERED: HEPARIN 10,000 UNIT/10 ML VIAL ONE (14:29)
[2016-09-27] MEDS ORDERED: FUROSEMIDE 20 MG/2 ML VIAL ONE (14:29)
[2016-09-27] MEDS ORDERED: MANNITOL 12.5 GM/50 ML VIAL IV ONE (14:29)
[2016-09-27] MEDS ORDERED: methylPREDNISolone SOD SUC 1,000 MG/8 ML VIAL ONE (14:29)
[2016-09-27 14:31] LABS: ABG HCO3 23.2 MMOL/L (20-26); ABG Oxygen Saturation 80.5 % (95-100); ABG PCO2 57.5 MM HG (35-48); ABG PH 7.277 (7.35-7.45); ABG TCO2 24.5 MMOL/L (23-27); Glucose Heart Surgery 155 MG/DL (74-106); Hematocrit Heart Surgery 34.6 PERCENT (42-52); Hemoglobin Heart Surgery 11.2 G/DL (14.0-18.0); Ionized Calcium Arterial 1.04 MMOL/L (1.21-1.46); PCO2 Patient Temp Arterial 57.5 MMHG; PH Patient Temp Arterial 7.277; Patient Temperature 37 CELCIUS; Potassium Heart/CVR 3.6 MMOL/L (3.5-5.1); Sodium Heart/CVR 136 MMOL/L (135-145)
[2016-09-27] MEDS ORDERED: TISSUE ADHESIVE 1 EACH APPLICATOR TOP ONE ×2 (14:50→14:58)
[2016-09-27 14:52] LABS: ABG Base Excess -1.5 MMOL/L (-2.5-2.5); ABG HCO3 22.9 MMOL/L (20-26); ABG Oxygen Saturation 84.5 % (95-100); ABG PCO2 59.8 MM HG (35-48); ABG PO2 60.3 MM HG (80-95); ABG TCO2 24.4 MMOL/L (23-27); Glucose Heart Surgery 149 MG/DL (74-106); Hematocrit Heart Surgery 36.3 PERCENT (42-52); Hemoglobin Heart Surgery 11.8 G/DL (14.0-18.0); Ionized Calcium Arterial 1.02 MMOL/L (1.21-1.46); PCO2 Patient Temp Arterial 59.8 MMHG; PO2 Patient Temp Arterial 60.3 MM HG; Patient Temperature 37 CELCIUS; Potassium Heart/CVR 3.9 MMOL/L (3.5-5.1); Sodium Heart/CVR 136 MMOL/L (135-145)
[2016-09-27] MEDS ORDERED: PHENYLEPHRINE DRIP 40 MG/250 ML PREMIX IV ONE (14:52)
[2016-09-27] MEDS: SODIUM CHLORIDE 0.45% 1,000 ML IV SCH ×2 (15:25→15:40)
[2016-09-27] MEDS ORDERED: ACETAMINOPHEN 650 MG SUPP RECTAL PRN (15:27)
[2016-09-27] MEDS ORDERED: MAGNESIUM SULF RIDER 4 GM in PREMIX 1 EACH IV PRN (15:27)
[2016-09-27] MEDS ORDERED: MIDAZOLAM 10 MG/2 ML VIAL IV PRN (15:27)
[2016-09-27] MEDS ORDERED: INSULIN REGULAR 100 UNIT/ML IV PRN (15:27)
[2016-09-27] MEDS ORDERED: PHENYLEPHRINE DRIP 40 MG/250 ML PREMIX IV PRN (15:27)
[2016-09-27] MEDS ORDERED: DEXTROSE 50% 25 GM/50 ML VIAL IV PRN ×2 (15:27)
[2016-09-27] MEDS ORDERED: NITROPRUSSIDE 100 MG in DEXTROSE 5% 250 ML IV PRN (15:27)
[2016-09-27] MEDS ORDERED: CALCIUM CHLORIDE 1,000 MG/10 ML SYRINGE IV PRN (15:27)
[2016-09-27] MEDS ORDERED: MAGNESIUM SULF RIDER 2 GM in PREMIX 1 EACH IV PRN (15:27)
[2016-09-27] MEDS ORDERED: MIDAZOLAM 2 MG/2 ML VIAL IV PRN (15:27)
[2016-09-27] MEDS ORDERED: ONDANSETRON 4 MG/2 ML VIAL IV PRN (15:27)
[2016-09-27] MEDS ORDERED: POTASSIUM CHLORIDE RIDER 10 MEQ in PREMIX 1 EACH IV PRN (15:27)
[2016-09-27] MEDS ORDERED: VECURONIUM 10 MG VIAL IV PRN ×2 (15:27)
[2016-09-27] MEDS ORDERED: CHLORHEXIDINE 4% SOLN 118 ML BOTTLE TOP PRN (15:27)
[2016-09-27] MEDS ORDERED: LACTATED RINGERS 250 ML IV PRN (15:27)
[2016-09-27] MEDS ORDERED: INSULIN REGULAR DRIP 100 ML IV SCH (15:30)
[2016-09-27 15:36] LABS: PT Mix 1:1 (Mayo Reflex) 12.5 sec
[2016-09-27 15:37] LABS: Thrombin Time (Bovine), P 18 sec (15 - 23)
[2016-09-27 15:44] LABS: ABG Base Excess -2.1 MMOL/L (-2.5-2.5); ABG HCO3 26.1 MMOL/L (20-26); ABG Oxygen Saturation 94.2 % (95-100); ABG PCO2 60.3 MM HG (35-48); ABG PH 7.255 (7.35-7.45); ABG PO2 86.4 MM HG (80-95); Glucose Heart Surgery 140 MG/DL (74-106); Hemoglobin Heart Surgery 13.5 G/DL (14.0-18.0); Potassium Heart/CVR 4.4 MMOL/L (3.5-5.1)
[2016-09-27 15:47] LABS: ABG Base Excess -2.3 MMOL/L (-2.5-2.5); ABG HCO3 26.2 MMOL/L (20-26); ABG PCO2 62.1 MM HG (35-48); ABG PH 7.243 (7.35-7.45); ABG PO2 87.2 MM HG (80-95); ABG TCO2 28.1 MMOL/L (23-27); Glucose Heart Surgery 139 MG/DL (74-106); Hemoglobin Heart Surgery 13.2 G/DL (14.0-18.0); Potassium Heart/CVR 4.3 MMOL/L (3.5-5.1)
[2016-09-27] MEDS: ALBUMIN 5% 12.5 GM in PREMIX 1 EACH IV PRN ×2 (15:51→16:25)
[2016-09-27] MEDS: POTASSIUM CHLORIDE RIDER 20 MEQ in PREMIX 1 EACH IV PRN ×2 (15:58→18:02)
[2016-09-27 16:20] LABS: Basophils # 0.1 10*3/uL (0.0-0.2); Basophils % 0.2 % (0.0-0.8); Eosinophils # 1.1 10*3/uL (0.0-0.87); Eosinophils % 3.7 % (0.00-10.9); Hematocrit 37.1 VOL% (42.0-52.0); Hemoglobin 11.9 GM/DL (14.0-18.0); Immature Granulocytes % 1.6 %; Immature Granulocytes Absolute 0.45 #; Lymphocytes % 7.1 % (21.2-54.2); Mean Corpuscular HGB Conc 32.1 GM/DL (32-36); Mean Corpuscular Hemoglobin 28 PG (27-34); Mean Corpuscular Volume 87.5 FL (87-102); Mean Platelet Volume 10.2 FL (9.6-12.0); Monocytes # 1.2 10*3/uL (0.11-0.8); Monocytes % 4.1 % (1.7-12.7); Neutrophils # 23.4 10*3/uL (1.4-7.4); Neutrophils % 83.3 % (38.7-73.9); Platelet Count 232 10*3/uL (130-400); Red Blood Count 4.24 10*6/uL (3.8-5.5); Red Cell Distribution Width 12.8 % (9.3-17.3); White Blood Count 28.1 10*3/uL (4.5-13.71)
[2016-09-27] MEDS ORDERED: SUFentanil 250 MCG/5 ML AMP ONE (16:25)
[2016-09-27] MEDS ORDERED: ePHEDrine 50 MG/ML AMP ONE (16:25)
[2016-09-27] MEDS ORDERED: LACTATED RINGERS 1,000 ML IV PRN (16:29)
[2016-09-27 16:35] LABS: INR 1.2; PT Patient Result 12.9 SECS; Partial Thromboplastin Time 33.4 SECS (0-40)
[2016-09-27 16:36] LABS: Band Neutrophils 3 % (0-10); Eosinophils 5 % (0-10); Lymphocytes 4 % (20-55); Segmented Neutrophils 83 % (50-85); Total Cells Counted 100
[2016-09-27 16:37] LABS: Platelet Estimate Adequate
[2016-09-27 16:58] LABS: Albumin 1.9 G/DL (3.4-5.0); Bilirubin,Total 1.9 MG/DL (0.2-1.0); Calcium 6.9 MG/DL (8.5-10.1); Magnesium 2.1 MG/DL (1.8-2.4); Osmolality,Calculated 286.8 MOS/KG (273-304); Total Protein 4.7 G/DL (6.4-8.3)
--- NOTE | 2016-09-27 17:14 | XRay Report ---
XR chest 1V portable Indication: Line placement. Comparison: Chest x-ray 09/26/2016. Technique: Portable AP chest was performed. Findings: There's been interval midline sternotomy. Endotracheal tube terminates at the sternoclavicular junction. NG tube is present the lower aspect which is not well visualized. Heart size remains within normal limits. Chest tubes are noted bilaterally. Bones and soft tissues demonstrate no significant abnormalities. Impression: 1. Interval sternotomy. 2. Multiple tubes and lines in place as detailed. 09/27/2016 5:10 PM PROCEDURE INTERPRETED AT [facility] DEPARTMENT OF RADIOLOGY Final Report Signed by: Dr. Dewayne Kumar
[2016-09-27 17:22] LABS: ABG Base Excess -2.7 MMOL/L (-2.5-2.5); ABG HCO3 22.2 MMOL/L (20-26); ABG Oxygen Saturation 98.9 % (95-100); ABG PCO2 43.7 MM HG (35-48); ABG PH 7.334 (7.35-7.45); ABG TCO2 20.8 MMOL/L (23-27); Glucose Heart Surgery 161 MG/DL (74-106); Hematocrit Heart Surgery 36.4 PERCENT (42-52); Hemoglobin Heart Surgery 11.8 G/DL (14.0-18.0); Potassium Heart/CVR 4.2 MMOL/L (3.5-5.1)
[2016-09-27 17:31] LABS: CKMB % 9.5 %
[2016-09-27 17:34] LABS: Troponin I Only 3.64 NG/ML (0.00-0.045)
--- NOTE | 2016-09-27 18:12 | Operative Note ---
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 RIGOBERTO 2. Institution of bicaval cardia pulmonary bypass 3. Emergency Right, and left atrial embolectomy 4. Closure of ASD with a pericardial patch The patient was brought into the OR placed supine on the OR table and general endotracheal anesthesia was induced. Antibiotics were given. Timeout was performed. Chest prepped and draped in the usual sterile fashion. An incision was made midline chest and sternotomy was performed. The patient was noted to be bleeding at this point as he was ready on full anticoagulation view his due to his PE. Hemostasis was achieved. He was given heparin as well as fresh frozen plasma as he was known to have deficiency of antithrombin III factor. The arterial cannula was inserted without any problem in the aorta. An SVC cannula 32 Cymraes tube was inserted through the right atrium. Another cannula was inserted in the IVC. Cardioplegia needle was inserted. The patient in the cardiopulmonary bypass was initiated. I inserted a left ventricular vent through the right superior pulmonary vein. I then placed the aortic cross- clamp and cardioplegia was given. The heart arrested successfully. I then made a right atrial atriotomy at this point identified the embolus that was noted to be in transit between the right and left atria through the patent foramen ovale. The clot was removed successfully in one piece. The patent foramen ovale and the fossa ovalis were opened to inspect the rest of the left atrium. There were no other bruits noted. I then took a 2 x 5 pericardial patch to close the interatrial septum in a running fashion using 5-0 Prolene. I then closed the atriotomy with a running 4-0 Prolene stitch. I then proceeded with de-airing maneuvers including Trendelenburg position with positive Valsalva and filling the heart with volume. The heart was de-aired successfully. I then removed the cross-clamp. The heart recovered well. He maintained a sinus rhythm at this point. The patient weaned well from that bypass. He was decannulated successfully after giving full dose protamine. All counts were correct at the end of the procedure. The patient was transferred to the unit in good condition. Anesthesia: CAYETANO Surgeon / Physician: Gwen Grier Donor Relations Manager: Jorge Whitten Estimated blood loss: other (CPB) Tourniquet Time (Minutes): 30 Urine output: 1,800 Specimens: none sent (Thrombus in transit, interatrial) Condition: stable Disposition: ICU Results - Labs CBC & BMP: 09/27/16 16:00 09/27/16 16:00 Discharge Plan - Discharge Medications No Action No Known Home Medications [No Known Home Medications] - Follow Up or Referral - Forms/Instructions Instructions: Pulmonary Embolism (GEN)
[2016-09-27] MEDS: MORPHINE 2 MG/1 ML SYRINGE IV PRN ×3 (18:15→20:13)
[2016-09-27 18:50] LABS: ABG Base Excess -2.5 MMOL/L (-2.5-2.5); ABG HCO3 22.3 MMOL/L (20-26); ABG PCO2 42.6 MM HG (35-48); ABG PH 7.344 (7.35-7.45); ABG PO2 96.3 MM HG (80-95); ABG TCO2 20.6 MMOL/L (23-27); Glucose Heart Surgery 186 MG/DL (74-106); Hematocrit Heart Surgery 37.4 PERCENT (42-52); Hemoglobin Heart Surgery 12.1 G/DL (14.0-18.0); Potassium Heart/CVR 4.5 MMOL/L (3.5-5.1)
[2016-09-27] MEDS: CHLORHEXIDINE 0.12% ORAL RINSE 60 ML BOTTLE SWISH/SPIT SCH (20:01)
[2016-09-27] MEDS: MORPHINE 10 MG/1 ML VIAL IV PRN (22:00)
[2016-09-27] MEDS: CEFUROXIME INJ 1,500 MG in SODIUM CHLORIDE 0.9% 100 ML IV SCH (23:30)
[2016-09-28] MEDS: SODIUM CHLORIDE 0.45% 1,000 ML IV SCH ×3 (01:26→21:16)
[2016-09-28] MEDS: MORPHINE 10 MG/1 ML VIAL IV PRN ×5 (01:55→19:44)
[2016-09-28 04:21] LABS: ABG Base Excess 0.3 MMOL/L (-2.5-2.5); ABG HCO3 24.5 MMOL/L (20-26); ABG Oxygen Saturation 88.3 % (95-100); ABG PCO2 40.8 MM HG (35-48); ABG PH 7.397 (7.35-7.45); ABG PO2 57.4 MM HG (80-95); ABG TCO2 22.6 MMOL/L (23-27); Glucose Heart Surgery 123 MG/DL (74-106); Hematocrit Heart Surgery 34.1 PERCENT (42-52); Potassium Heart/CVR 4.3 MMOL/L (3.5-5.1)
[2016-09-28 04:24] LABS: Basophils % 0.1 % (0.0-0.8); Hematocrit 33.3 VOL% (42.0-52.0); Hemoglobin 10.7 GM/DL (14.0-18.0); Immature Granulocytes % 0.6 %; Immature Granulocytes Absolute 0.11 #; Lymphocytes # 0.9 10*3/uL (1.4-4.0); Lymphocytes % 5.4 % (21.2-54.2); Mean Corpuscular HGB Conc 32.1 GM/DL (32-36); Mean Corpuscular Hemoglobin 28 PG (27-34); Mean Platelet Volume 10.3 FL (9.6-12.0); Monocytes # 0.3 10*3/uL (0.11-0.8); Neutrophils # 15.7 10*3/uL (1.4-7.4); Neutrophils % 91.9 % (38.7-73.9); Platelet Count 243 10*3/uL (130-400); Red Blood Count 3.87 10*6/uL (3.8-5.5); Red Cell Distribution Width 12.9 % (9.3-17.3); White Blood Count 17.1 10*3/uL (4.5-13.71)
[2016-09-28] MEDS: POTASSIUM CHLORIDE RIDER 20 MEQ in PREMIX 1 EACH IV PRN (04:36)
[2016-09-28 04:51] LABS: Burr Cells Slight; Hypochromasia Slight; Lymphocytes 6 % (20-55); Platelet Estimate Adequate; Segmented Neutrophils 92 % (50-85); Total Cells Counted 100
[2016-09-28 04:52] LABS: Microcytosis Slight
[2016-09-28 04:59] LABS: Albumin 2.4 G/DL (3.4-5.0); Bilirubin,Direct 0.2 MG/DL (0.0-0.20); Bilirubin,Total 0.5 MG/DL (0.2-1.0); Calcium 7.6 MG/DL (8.5-10.1); Magnesium 2.1 MG/DL (1.8-2.4); Potassium 4.6 MMOL/L (3.5-5.1); Total Protein 5.7 G/DL (6.4-8.3)
--- NOTE | 2016-09-28 06:58 | Cardiology Progress Note ---
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 repair interatrial septum Awake alert and responsive O2 sat 94 on 50% Ventimask Telemetry shows sinus rhythm in the 80s Blood pressure 150/78 Regular rhythm with squeaky rub Decreased breath sounds crackles in the right base Edematous Mediastinal tube 140 cc Right pleural tube 200 cc Left pleural tube 0 Lab data today White count 17.1 Hemoglobin 10.7 hematocrit 33.3 Sodium 143 potassium 4.6 chloride 110 CO2 25 BUN 11 creatinine 0.90 Glucose 109 troponin III 0.64 Plan Spirometry Follow chest tube drainage Exam (Progress Note) - Constitutional Vitals: Period Temp Pulse Resp BP Sys/Rodríguez Pulse Ox Last 24 Hr 97.6 F-99.0 F 73-88 10-26 84-166/48-94 26-100 Result/EKG - Labs CBC & BMP: 09/28/16 04:10 09/28/16 04:10 Labs: Laboratory Results - last 24 hr 09/23/16 09/27/16 09/27/16 11:37 12:16 12:17 WBC RBC Hgb Hct MCV MCH MCHC RDW Plt Count 306 MPV Neut % (Auto) Lymph % (Auto) [place] % (Auto) Eos % (Auto) Baso % (Auto) Neut # (Auto) Lymph # (Auto) [place] # (Auto) Eos # (Auto) Baso # (Auto) Total Counted Immature Gran % Nucleated RBC % Immature Gran # Segmented Neutrophils Band Neutrophils Lymphocytes Monocytes Eosinophils Nucleated RBCs # Platelet Estimate Hypochromasia Microcytosis Nhan Cells Morphology Comment INR PT Patient/Control Mix PT Normal/Saline 1:1 12.5 Thrombin Time 18 Circ Anticoag PTT Protein C Activity 69 L Protein S Activity 95 Protein S Antigen 101 Antithrombin 72 L Antithrombin III Activ 80 Patient Temperature 37 ABG pH 7.315 L ABG pH at Pt Temp 7.315 ABG pCO2 52.3 H ABG pCO2 at Pt Temp 52.3 ABG pO2 177.0 H ABG pO2 at Pt Temp 177.0 ABG HCO3 24.0 ABG Total CO2 23.6 ABG O2 Saturation 98.9 ABG Base Excess -0.5 ABG Sodium 140 VBG pH VBG pCO2 VBG pO2 VBG HCO3 VBG Total CO2 VBG O2 Saturation VBG Base Excess Hemoglobin 12.7 L Hematocrit 39.0 L Potassium 3.8 Glucose 98 Ionized Calcium 1.19 L FiO2 Sodium Chloride Carbon Dioxide Anion Gap BUN Creatinine GFR Calculation BUN/Creatinine Ratio Calculated Osmolality Lactic Acid Calcium Venous Ioniz Calcium Magnesium Total Bilirubin Direct Bilirubin AST ALT Alkaline Phosphatase Total Creatine Kinase CK-MB (CK-2) CK and CKMB Interp Troponin I Total Protein Albumin Globulin Albumin/Globulin Ratio Homocysteine 12 Blood Type Antibody Screen Crossmatch 09/27/16 09/27/16 09/27/16 13:15 13:50 14:15 WBC RBC Hgb Hct MCV MCH MCHC RDW Plt Count 156 D MPV Neut % (Auto) Lymph % (Auto) [place] % (Auto) Eos % (Auto) Baso % (Auto) Neut # (Auto) Lymph # (Auto) [place] # (Auto) Eos # (Auto) Baso # (Auto) Total Counted Immature Gran % Nucleated RBC % Immature Gran # Segmented Neutrophils Band Neutrophils Lymphocytes Monocytes Eosinophils Nucleated RBCs # Platelet Estimate Hypochromasia Microcytosis Nhan Cells Morphology Comment INR PT Patient/Control Mix PT Normal/Saline 1:1 Thrombin Time Circ Anticoag PTT Protein C Activity Protein S Activity Protein S Antigen Antithrombin Antithrombin III Activ Patient Temperature 37 35 ABG pH ABG pH at Pt Temp 7.344 7.382 ABG pCO2 ABG pCO2 at Pt Temp 49.6 41.2 ABG pO2 ABG pO2 at Pt Temp 41.0 41.5 ABG HCO3 ABG Total CO2 ABG O2 Saturation ABG Base Excess ABG Sodium 136 133 L VBG pH 7.344 7.353 VBG pCO2 49.6 45.3 VBG pO2 41.0 H 47.6 H VBG HCO3 24.7 23.6 L VBG Total CO2 25.0 23.0 VBG O2 Saturation 69.7 79.2 VBG Base Excess 0.8 -0.6 L Hemoglobin 9.4 L D 10.7 L Hematocrit 29.2 L 33.0 L Potassium 4.3 4.1 Glucose 161 H 184 H Ionized Calcium FiO2 21.00 80.00 Sodium Chloride Carbon Dioxide Anion Gap BUN Creatinine GFR Calculation BUN/Creatinine Ratio Calculated Osmolality Lactic Acid Calcium Venous Ioniz Calcium 0.89 L 0.98 L Magnesium Total Bilirubin Direct Bilirubin AST ALT Alkaline Phosphatase Total Creatine Kinase CK-MB (CK-2) CK and CKMB Interp Troponin I Total Protein Albumin Globulin Albumin/Globulin Ratio Homocysteine Blood Type Antibody Screen Crossmatch 09/27/16 09/27/16 09/27/16 14:15 14:35 15:30 WBC RBC Hgb Hct MCV MCH MCHC RDW Plt Count 263 D MPV Neut % (Auto) Lymph % (Auto) [place] % (Auto) Eos % (Auto) Baso % (Auto) Neut # (Auto) Lymph # (Auto) [place] # (Auto) Eos # (Auto) Baso # (Auto) Total Counted Immature Gran % Nucleated RBC % Immature Gran # Segmented Neutrophils Band Neutrophils Lymphocytes Monocytes Eosinophils Nucleated RBCs # Platelet Estimate Hypochromasia Microcytosis Nhan Cells Morphology Comment INR PT Patient/Control Mix PT Normal/Saline 1:1 Thrombin Time Circ Anticoag PTT Protein C Activity Protein S Activity Protein S Antigen Antithrombin Antithrombin III Activ Patient Temperature 37 37 ABG pH 7.277 L 7.260 L ABG pH at Pt Temp 7.277 7.260 ABG pCO2 57.5 H 59.8 H ABG pCO2 at Pt Temp 57.5 59.8 ABG pO2 54.0 L 60.3 L ABG pO2 at Pt Temp 54.0 60.3 ABG HCO3 23.2 22.9 ABG Total CO2 24.5 24.4 ABG O2 Saturation 80.5 L 84.5 L ABG Base Excess -1.0 -1.5 ABG Sodium 136 136 VBG pH VBG pCO2 VBG pO2 VBG HCO3 VBG Total CO2 VBG O2 Saturation VBG Base Excess Hemoglobin 11.2 L 11.8 L Hematocrit 34.6 L 36.3 L Potassium 3.6 3.9 Glucose 155 H 149 H Ionized Calcium 1.04 L 1.02 L FiO2 Sodium Chloride Carbon Dioxide Anion Gap BUN Creatinine GFR Calculation BUN/Creatinine Ratio Calculated Osmolality Lactic Acid Calcium Venous Ioniz Calcium Magnesium Total Bilirubin Direct Bilirubin AST ALT Alkaline Phosphatase Total Creatine Kinase CK-MB (CK-2) CK and CKMB Interp Troponin I Total Protein Albumin Globulin Albumin/Globulin Ratio Homocysteine Blood Type Antibody Screen Crossmatch 09/27/16 09/27/16 09/27/16 15:30 15:32 16:00 WBC 28.1 H D RBC 4.24 Hgb 11.9 L Hct 37.1 L MCV 87.5 MCH 28 MCHC 32.1 RDW 12.8 Plt Count 232 MPV 10.2 Neut % (Auto) 83.3 H Lymph % (Auto) 7.1 L [place] % (Auto) 4.1 Eos % (Auto) 3.7 Baso % (Auto) 0.2 Neut # (Auto) 23.4 H Lymph # (Auto) 2.0 [place] # (Auto) 1.2 H Eos # (Auto) 1.1 H Baso # (Auto) 0.1 Total Counted 100 Immature Gran % 1.6 Nucleated RBC % 0.0 Immature Gran # 0.45 Segmented Neutrophils 83 Band Neutrophils 3 Lymphocytes 4 L Monocytes 5 Eosinophils 5 Nucleated RBCs # 0.00 Platelet Estimate Adequate Hypochromasia Microcytosis Newton Cells Morphology Comment INR PT Patient/Control Mix PT Normal/Saline 1:1 Thrombin Time Circ Anticoag PTT Protein C Activity Protein S Activity Protein S Antigen Antithrombin Antithrombin III Activ Patient Temperature ABG pH 7.243 L 7.255 L ABG pH at Pt Temp ABG pCO2 62.1 H 60.3 H ABG pCO2 at Pt Temp ABG pO2 87.2 86.4 ABG pO2 at Pt Temp ABG HCO3 26.2 H 26.1 H ABG Total CO2 28.1 H 28.0 H ABG O2 Saturation 94.0 L 94.2 L ABG Base Excess -2.3 -2.1 ABG Sodium VBG pH VBG pCO2 VBG pO2 VBG HCO3 VBG Total CO2 VBG O2 Saturation VBG Base Excess Hemoglobin 13.2 L 13.5 L Hematocrit 39.0 L 40.0 L Potassium 4.3 4.4 Glucose 139 H 140 H Ionized Calcium FiO2 Sodium Chloride Carbon Dioxide Anion Gap BUN Creatinine GFR Calculation BUN/Creatinine Ratio Calculated Osmolality Lactic Acid Calcium Venous Ioniz Calcium Magnesium Total Bilirubin Direct Bilirubin AST ALT Alkaline Phosphatase Total Creatine Kinase CK-MB (CK-2) CK and CKMB Interp Troponin I Total Protein Albumin Globulin Albumin/Globulin Ratio Homocysteine Blood Type Antibody Screen Crossmatch 09/27/16 09/27/16 09/27/16 16:00 16:00 16:00 WBC RBC Hgb Hct MCV MCH MCHC RDW Plt Count MPV Neut % (Auto) Lymph % (Auto) [place] % (Auto) Eos % (Auto) Baso % (Auto) Neut # (Auto) Lymph # (Auto) [place] # (Auto) Eos # (Auto) Baso # (Auto) Total Counted Immature Gran % Nucleated RBC % Immature Gran # Segmented Neutrophils Band Neutrophils Lymphocytes Monocytes Eosinophils Nucleated RBCs # Platelet Estimate Hypochromasia Microcytosis Newton Cells Morphology Comment INR 1.2 PT Patient/Control Mix 12.9 PT Normal/Saline 1:1 Thrombin Time Circ Anticoag PTT 33.4 Protein C Activity Protein S Activity Protein S Antigen Antithrombin Antithrombin III Activ Patient Temperature ABG pH ABG pH at Pt Temp ABG pCO2 ABG pCO2 at Pt Temp ABG pO2 ABG pO2 at Pt Temp ABG HCO3 ABG Total CO2 ABG O2 Saturation ABG Base Excess ABG Sodium VBG pH VBG pCO2 VBG pO2 VBG HCO3 VBG Total CO2 VBG O2 Saturation VBG Base Excess Hemoglobin Hematocrit Potassium 5.0 Glucose 138 H Ionized Calcium FiO2 Sodium 144 Chloride 111 H Carbon Dioxide 25 Anion Gap 13.0 BUN 10 Creatinine 1.00 GFR Calculation 178 BUN/Creatinine Ratio 10.00 Calculated Osmolality 286.8 Lactic Acid 1.0 Calcium 6.9 L Venous Ioniz Calcium Magnesium 2.1 Total Bilirubin 1.90 H Direct Bilirubin AST 46 H ALT 78 H Alkaline Phosphatase 42 L Total Creatine Kinase CK-MB (CK-2) CK and CKMB Interp Troponin I Total Protein 4.7 L Albumin 1.9 L Globulin 2.8 Albumin/Globulin Ratio 0.6 L Homocysteine Blood Type Antibody Screen Crossmatch 09/27/16 09/27/16 09/27/16 16:07 17:00 18:45 WBC RBC Hgb Hct MCV MCH MCHC RDW Plt Count MPV Neut % (Auto) Lymph % (Auto) [place] % (Auto) Eos % (Auto) Baso % (Auto) Neut # (Auto) Lymph # (Auto) [place] # (Auto) Eos # (Auto) Baso # (Auto) Total Counted Immature Gran % Nucleated RBC % Immature Gran # Segmented Neutrophils Band Neutrophils Lymphocytes Monocytes Eosinophils Nucleated RBCs # Platelet Estimate Hypochromasia Microcytosis Newton Cells Morphology Comment INR PT Patient/Control Mix PT Normal/Saline 1:1 Thrombin Time Circ Anticoag PTT Protein C Activity Protein S Activity Protein S Antigen Antithrombin Antithrombin III Activ Patient Temperature ABG pH 7.334 L 7.344 L ABG pH at Pt Temp ABG pCO2 43.7 42.6 ABG pCO2 at Pt Temp ABG pO2 165.0 H 96.3 H ABG pO2 at Pt Temp ABG HCO3 22.2 22.3 ABG Total CO2 20.8 L 20.6 L ABG O2 Saturation 98.9 97.0 ABG Base Excess -2.7 L -2.5 ABG Sodium VBG pH VBG pCO2 VBG pO2 VBG HCO3 VBG Total CO2 VBG O2 Saturation VBG Base Excess Hemoglobin 11.8 L 12.1 L Hematocrit 36.4 L 37.4 L Potassium 4.2 4.5 Glucose 161 H 186 H Ionized Calcium FiO2 Sodium Chloride Carbon Dioxide Anion Gap BUN Creatinine GFR Calculation BUN/Creatinine Ratio Calculated Osmolality Lactic Acid Calcium Venous Ioniz Calcium Magnesium Total Bilirubin Direct Bilirubin AST ALT Alkaline Phosphatase Total Creatine Kinase 250 D CK-MB (CK-2) 23.7 H CK and CKMB Interp 9.5 Troponin I 3.640 H Total Protein Albumin Globulin Albumin/Globulin Ratio Homocysteine Blood Type Antibody Screen Crossmatch 09/27/16 09/27/16 09/28/16 Unknown Unknown 04:10 WBC 17.1 H D RBC 3.87 Hgb 10.7 L Hct 33.3 L MCV 86.0 L MCH 28 MCHC 32.1 RDW 12.9 Plt Count 243 MPV 10.3 Neut % (Auto) 91.9 H Lymph % (Auto) 5.4 L [place] % (Auto) 2.0 Eos % (Auto) 0.0 Baso % (Auto) 0.1 Neut # (Auto) 15.7 H Lymph # (Auto) 0.9 L [place] # (Auto) 0.3 Eos # (Auto) 0.0 Baso # (Auto) 0.0 Total Counted 100 Immature Gran % 0.6 Nucleated RBC % 0.0 Immature Gran # 0.11 Segmented Neutrophils 92 H Band Neutrophils Lymphocytes 6 L Monocytes 2 Eosinophils Nucleated RBCs # 0.00 Platelet Estimate Adequate Hypochromasia Slight Microcytosis Slight Nhan Cells Slight Morphology Comment INR PT Patient/Control Mix PT Normal/Saline 1:1 Thrombin Time Circ Anticoag PTT Protein C Activity Protein S Activity Protein S Antigen Antithrombin Antithrombin III Activ Patient Temperature ABG pH ABG pH at Pt Temp ABG pCO2 ABG pCO2 at Pt Temp ABG pO2 ABG pO2 at Pt Temp ABG HCO3 ABG Total CO2 ABG O2 Saturation ABG Base Excess ABG Sodium VBG pH VBG pCO2 VBG pO2 VBG HCO3 VBG Total CO2 VBG O2 Saturation VBG Base Excess Hemoglobin Hematocrit Potassium Glucose Ionized Calcium FiO2 Sodium Chloride Carbon Dioxide Anion Gap BUN Creatinine GFR Calculation BUN/Creatinine Ratio Calculated Osmolality Lactic Acid Calcium Venous Ioniz Calcium Magnesium Total Bilirubin Direct Bilirubin AST ALT Alkaline Phosphatase Total Creatine Kinase CK-MB (CK-2) CK and CKMB Interp Troponin I Total Protein Albumin Globulin Albumin/Globulin Ratio Homocysteine Blood Type B POSITIVE B POSITIVE Antibody Screen Negative Crossmatch See Detail 09/28/16 09/28/16 04:10 04:10 WBC RBC Hgb Hct MCV MCH MCHC RDW Plt Count MPV Neut % (Auto) Lymph % (Auto) [place] % (Auto) Eos % (Auto) Baso % (Auto) Neut # (Auto) Lymph # (Auto) [place] # (Auto) Eos # (Auto) Baso # (Auto) Total Counted Immature Gran % Nucleated RBC % Immature Gran # Segmented Neutrophils Band Neutrophils Lymphocytes Monocytes Eosinophils Nucleated RBCs # Platelet Estimate Hypochromasia Microcytosis Newton Cells Morphology Comment INR PT Patient/Control Mix PT Normal/Saline 1:1 Thrombin Time Circ Anticoag PTT Protein C Activity Protein S Activity Protein S Antigen Antithrombin Antithrombin III Activ Patient Temperature ABG pH 7.397 ABG pH at Pt Temp ABG pCO2 40.8 ABG pCO2 at Pt Temp ABG pO2 57.4 L ABG pO2 at Pt Temp ABG HCO3 24.5 ABG Total CO2 22.6 L ABG O2 Saturation 88.3 L ABG Base Excess 0.3 ABG Sodium VBG pH VBG pCO2 VBG pO2 VBG HCO3 VBG Total CO2 VBG O2 Saturation VBG Base Excess Hemoglobin 11.0 L Hematocrit 34.1 L Potassium 4.6 4.3 Glucose 109 H 123 H Ionized Calcium FiO2 Sodium 143 Chloride 110 H Carbon Dioxide 25 Anion Gap 12.6 BUN 11 Creatinine 0.90 GFR Calculation 202 BUN/Creatinine Ratio 12.00 Calculated Osmolality 284.0 Lactic Acid Calcium 7.6 L Venous Ioniz Calcium Magnesium 2.1 Total Bilirubin 0.50 Direct Bilirubin 0.2 AST 46 H ALT 79 H Alkaline Phosphatase 45 Total Creatine Kinase CK-MB (CK-2) CK and CKMB Interp Troponin I Total Protein 5.7 L Albumin 2.4 L Globulin 3.3 Albumin/Globulin Ratio 0.7 L Homocysteine Blood Type Antibody Screen Crossmatch Quality Measures - VTE Contraindication to Pharmacological VTE Prophylaxis: Active Bleeding Specialty Discharge - Follow Up or Referrals - Discharge Medications No Action No Known Home Medications [No Known Home Medications]
[2016-09-28 07:04] LABS: ABG Base Excess 0.3 MMOL/L (-2.5-2.5); ABG HCO3 24.6 MMOL/L (20-26); ABG Oxygen Saturation 92.7 % (95-100); ABG PCO2 40.2 MM HG (35-48); ABG PH 7.403 (7.35-7.45); ABG PO2 66.7 MM HG (80-95); ABG TCO2 22.5 MMOL/L (23-27)
--- NOTE | 2016-09-28 08:01 | EKG Report ---
Stationary ECG Study [facility] Test Date: 09/28/2016 8:00:23 AM Pat Name: EVERARDO NINA Department: Room: 104 Gender: M Braiding Operator: ELLE : [id number] Requested by: Gwen Grier Order Number: [id number] Reading MD: CATHI GIBSON Intervals [place] Rate: 82 P: 16 W[place]: 141 QRS: 56 QRSD: 109 T: 38 QT: 382 QTc: 421 Interpretive Statements SINUS RHYTHM EARLY REPOLARIZATION vs injury or pericarditis--correlate clinically Electronically Signed On 09-28-16 12:53:21 SCREEN DOOR MAKER by CATHI GIBSON [email or web address]
--- NOTE | 2016-09-28 08:06 | XRay Report ---
Exam: XR chest 1V portable Indication: Chest tube removal, extubated Comparison study: 09/27/16 Findings: The heart, mediastinum and bony structures are stable from prior. The endotracheal tube has been removed. Esophagogastric tube has been removed. Through the mediastinal chest drains remain in similar position. There is no pneumothorax. There are similar opacities within the lung bases, which are slightly increased on the left. Right-sided central venous catheter is in similar position. There is no acute osseous abnormality. Median sternotomy wiring appear similar. Impression: Interval extubation. 3 mediastinal chest drains remain in similar position. Slight worsening of left basilar atelectasis/pleural fluid and underlying infiltrates are not excluded. PROCEDURE INTERPRETED AT [facility] DEPARTMENT OF RADIOLOGY Final Report Signed by: Ld Pérez
--- NOTE | 2016-09-28 08:46 | Hospitalist Progress Note ---
Assessment and Plan (1) Pulmonary embolism Status: Acute Assessment and plan: s/p ekos and s/p left and right atrial embolectomy, Has antithrombin III disorder,patient will be restarted on heparin by Dr Grier I will sign off Current Visit: Yes (2) Acute cor pulmonale Status: Acute Assessment and plan: echo shows normal LV but increase right heart pressure due to PE Current Visit: Yes (3) Bilateral pleural effusion Status: Acute Assessment and plan: s/p thoracentesis 800 ml of bloody fluid Current Visit: Yes Hospitalist: Subjective Interval history: Patient looks good today. He is off the vent. He does not look like he has had any evidence of a stroke. Says he still hurting in his chest where his incision. I spoke to Dr. HORACE Crzu to this morning and he is going to start him on anticoagulation in about 24 hours out from surgery. I also asked Dr. Mary blair reviewed my taking over the case as patient has no medical problems except for this. He is agreed to assume his care. Exam - Constitutional Vitals: Period Temp Pulse Resp BP Sys/Rodríguez Pulse Ox Last 24 Hr 97.6 F-98.6 F 73-88 10-26 84-166/48-94 26-100 Exam: HR-RRR lungs-clear but diminished GI-+bs soft and nt neuro alert and oriented times 3, motor 5/5 equal and symmetrical psych normal mood and affect Results - Labs CBC & BMP: 09/28/16 04:10 09/28/16 07:00 Lab Results: I have reviewed the past 24 hour labs Quality Measures - VTE Contraindication to Pharmacological VTE Prophylaxis: Active Bleeding Specialty Discharge - Follow Up or Referrals - Discharge Medications No Action No Known Home Medications [No Known Home Medications]
[2016-09-28] MEDS: POTASSIUM CHLORIDE 20 MEQ TABLET PO SCH (09:28)
[2016-09-28] MEDS: LISINOPRIL 10 MG TABLET PO SCH (09:28)
[2016-09-28] MEDS: NICOTINE 21 MG/24 HR PATCH TRANSDERM SCH (09:28)
[2016-09-28] MEDS: FUROSEMIDE 40 MG/4 ML VIAL IV SCH (09:28)
[2016-09-28] MEDS: PANTOPRAZOLE 40 MG TABLET PO SCH (09:28)
[2016-09-28] MEDS: SILDENAFIL 20 MG TABLET PO SCH ×3 (09:29→20:07)
[2016-09-28] MEDS: METOPROLOL SUCCINATE XL 50 MG TABLET PO SCH (09:29)
[2016-09-28] MEDS: CHLORHEXIDINE 0.12% ORAL RINSE 60 ML BOTTLE SWISH/SPIT SCH ×2 (09:30→20:07)
[2016-09-28 10:09] LABS: ABG Base Excess 1.1 MMOL/L (-2.5-2.5); ABG HCO3 24.9 MMOL/L (20-26); ABG Oxygen Saturation 89.5 % (95-100); ABG PCO2 36.8 MM HG (35-48); ABG PH 7.449 (7.35-7.45); ABG PO2 58.5 MM HG (80-95); ABG TCO2 26.1 MMOL/L (23-27)
--- NOTE | 2016-09-28 11:16 | Pathology Report from [facility] ---
ACCESSION # : [id number] PATIENT NAME : Martin Espinal ORDERING DR : Abhishek Kumar MD CLINICAL HX: Pleural effusion POST-OP DX: Same SPECIMEN INFO: Fluid- Pleural, 800 mls serosanguinous with a few blood clots CLASS: I CLASS COMMENTS: Blood/fibrin, few mesothelial cells, and much chronic and acute inflammation, including eosinophilsCELL BLOCK: Same CLASS LEGEND: CLASS 0 Material inadequate for diagnosis because of (see comment) CLASS I Absence of atypical or abnormal cells CLASS II Atypical Cytology but no evidence of malignancy CLASS III Cytology suggestive of but not conclusive for malignancy CLASS IV Cytology strongly suggestive of malignancy CLASS V Cytology conclusive for malignancy SERVICE DATE: 09/27/2016 REPORT DATE: 09/28/2016 PATHOLOGIST: Desire Mcconnell III, M.D. MTDD
--- NOTE | 2016-09-28 11:27 | Pathology Report from [facility] ---
ACCESSION # : [id number] PATIENT NAME : Everardo Nina ORDERING DR : Gwen Grier MD CLINICAL HX: Bilateral pulmonary emboli - Atrial septal defect- Left atrial mass POST-OP DX: Same SPECIMEN INFO: Right atrial blood clot GROSS DESCRIPTION: The specimen is received in formalin labeled with the patient 's name and consists of two fragments of clotted blood measuring 5.0 x 1.7 cm and 2.7 x 1.1 cm respectively. Waste Disposal Leakage Tester sections submitted in one cassette. DIAGNOSIS FOR EVERARDO NINA: RIGHT ATRIAL TISSUE: Organizing thrombosis. No evidence of neoplasia. SERVICE DATE: 09/27/2016 REPORT DATE: 09/28/2016 PATHOLOGIST: Desire Mcconnell III, M.D. MTDD
[2016-09-28] MEDS: CEFUROXIME INJ 1,500 MG in SODIUM CHLORIDE 0.9% 100 ML IV SCH (11:50)
[2016-09-28 14:26] LABS: CKMB % 7.6 %
[2016-09-28] MEDS: HEPARIN DRIP 25,000 UNITS/500 ML PREMIX IV SCH ×2 (14:26→14:54)
[2016-09-28 14:27] LABS: Troponin I Only 3.43 NG/ML (0.00-0.045)
[2016-09-28 17:32] LABS: INR 1.3
--- NOTE | 2016-09-28 18:07 | Cardiothoracic Progress Note ---
Assessment and Plan - Time spent with patient Time spent with patient: Greater than 30 minutes Time spent discussing smoking cessation with patient: more than 10 minutes (1) Pulmonary embolism Status: Acute Assessment and plan: POD1 S/P Emergency right and left atrial Thrombectomy, repair of ASD with pericardial patch. The pt has been doing well, on and off face mask, sats has been high 90s. Started heparin drip. OOB, Lasix, DC [place], will DC CT tomorrow then start oral anticoagulants. Will consult hematology for [facility] follow up plan regarding his hypercoagulable state. Current Visit: Yes Cardiothoracic Subjective Interval history: The pt has been doing very well. Extubated yesterday. Pain well controlled. Exam (Progress Note) - Constitutional Vitals: Period Temp Pulse Resp BP Sys/Rodríguez Pulse Ox Last 24 Hr 98.0 F-98.6 F 73-88 15-34 103-166/61-91 26-100 General appearance: morbidly obese - Head Head exam: Present: normal inspection - Eye Eye exam: Present: EOMI Pupils: Present: MIRANDA - ENT ENT exam: Present: normal exam - Neck Neck exam: Present: normal inspection - Respiratory Respiratory exam: Present: decreased breath sounds - Cardiovascular Cardiovascular exam: Present: regular rate and rhythm Result/EKG - Labs CBC & BMP: 09/28/16 04:10 09/28/16 07:00 Labs: Laboratory Results - last 24 hr 09/23/16 09/27/16 09/27/16 11:37 18:08 18:45 WBC RBC Hgb Hct MCV MCH MCHC RDW Plt Count MPV Neut % (Auto) Lymph % (Auto) [place] % (Auto) Eos % (Auto) Baso % (Auto) Neut # (Auto) Lymph # (Auto) [place] # (Auto) Eos # (Auto) Baso # (Auto) Total Counted Immature Gran % Nucleated RBC % Immature Gran # Segmented Neutrophils Lymphocytes Monocytes Nucleated RBCs # Platelet Estimate Hypochromasia Microcytosis [place] Cells Morphology Comment PT 14.5 H INR 1.3 APTT 27 PT Normal/Saline 1:1 12.5 Thrombin Time 18 Lupus aPPT Interpret See comments Dil Tyrell Viper Venom 1.0 Lupus Anticoag Review Bhaskar byers m.d. Circ Anticoag PTT Protein C Activity 69 L Protein S Activity 95 Protein S Antigen 101 Antithrombin 72 L Antithrombin III Activ 80 ABG pH 7.344 L ABG pCO2 42.6 ABG pO2 96.3 H ABG HCO3 22.3 ABG Total CO2 20.6 L ABG O2 Saturation 97.0 ABG Base Excess -2.5 Hemoglobin 12.1 L Hematocrit 37.4 L Potassium 4.5 Glucose 186 H Sodium Chloride Carbon Dioxide Anion Gap BUN Creatinine GFR Calculation BUN/Creatinine Ratio POC Glucose 143 H Calculated Osmolality Calcium Magnesium Total Bilirubin Direct Bilirubin AST ALT Alkaline Phosphatase Total Creatine Kinase CK-MB (CK-2) CK and CKMB Interp Troponin I Total Protein Albumin Globulin Albumin/Globulin Ratio Homocysteine 12 Blood Type Antibody Screen Crossmatch 09/27/16 09/27/16 09/27/16 20:27 21:13 22:13 WBC RBC Hgb Hct MCV MCH MCHC RDW Plt Count MPV Neut % (Auto) Lymph % (Auto) [place] % (Auto) Eos % (Auto) Baso % (Auto) Neut # (Auto) Lymph # (Auto) [place] # (Auto) Eos # (Auto) Baso # (Auto) Total Counted Immature Gran % Nucleated RBC % Immature Gran # Segmented Neutrophils Lymphocytes Monocytes Nucleated RBCs # Platelet Estimate Hypochromasia Microcytosis [place] Cells Morphology Comment PT INR APTT PT Normal/Saline 1:1 Thrombin Time Lupus aPPT Interpret Dil Tyrell Viper Venom Lupus Anticoag Review Circ Anticoag PTT Protein C Activity Protein S Activity Protein S Antigen Antithrombin Antithrombin III Activ ABG pH ABG pCO2 ABG pO2 ABG HCO3 ABG Total CO2 ABG O2 Saturation ABG Base Excess Hemoglobin Hematocrit Potassium Glucose Sodium Chloride Carbon Dioxide Anion Gap BUN Creatinine GFR Calculation BUN/Creatinine Ratio POC Glucose 152 H 145 H 136 H Calculated Osmolality Calcium Magnesium Total Bilirubin Direct Bilirubin AST ALT Alkaline Phosphatase Total Creatine Kinase CK-MB (CK-2) CK and CKMB Interp Troponin I Total Protein Albumin Globulin Albumin/Globulin Ratio Homocysteine Blood Type Antibody Screen Crossmatch 09/27/16 09/27/16 09/28/16 23:13 Unknown 00:18 WBC RBC Hgb Hct MCV MCH MCHC RDW Plt Count MPV Neut % (Auto) Lymph % (Auto) [place] % (Auto) Eos % (Auto) Baso % (Auto) Neut # (Auto) Lymph # (Auto) [place] # (Auto) Eos # (Auto) Baso # (Auto) Total Counted Immature Gran % Nucleated RBC % Immature Gran # Segmented Neutrophils Lymphocytes Monocytes Nucleated RBCs # Platelet Estimate Hypochromasia Microcytosis [place] Cells Morphology Comment PT INR APTT PT Normal/Saline 1:1 Thrombin Time Lupus aPPT Interpret Dil Tyrell Viper Venom Lupus Anticoag Review Circ Anticoag PTT Protein C Activity Protein S Activity Protein S Antigen Antithrombin Antithrombin III Activ ABG pH ABG pCO2 ABG pO2 ABG HCO3 ABG Total CO2 ABG O2 Saturation ABG Base Excess Hemoglobin Hematocrit Potassium Glucose Sodium Chloride Carbon Dioxide Anion Gap BUN Creatinine GFR Calculation BUN/Creatinine Ratio POC Glucose 112 H 97 Calculated Osmolality Calcium Magnesium Total Bilirubin Direct Bilirubin AST ALT Alkaline Phosphatase Total Creatine Kinase CK-MB (CK-2) CK and CKMB Interp Troponin I Total Protein Albumin Globulin Albumin/Globulin Ratio Homocysteine Blood Type B POSITIVE Antibody Screen Negative Crossmatch See Detail 09/28/16 09/28/16 09/28/16 01:11 02:09 03:11 WBC RBC Hgb Hct MCV MCH MCHC RDW Plt Count MPV Neut % (Auto) Lymph % (Auto) [place] % (Auto) Eos % (Auto) Baso % (Auto) Neut # (Auto) Lymph # (Auto) [place] # (Auto) Eos # (Auto) Baso # (Auto) Total Counted Immature Gran % Nucleated RBC % Immature Gran # Segmented Neutrophils Lymphocytes Monocytes Nucleated RBCs # Platelet Estimate Hypochromasia Microcytosis [place] Cells Morphology Comment PT INR APTT PT Normal/Saline 1:1 Thrombin Time Lupus aPPT Interpret Dil Tyrell Viper Venom Lupus Anticoag Review Circ Anticoag PTT Protein C Activity Protein S Activity Protein S Antigen Antithrombin Antithrombin III Activ ABG pH ABG pCO2 ABG pO2 ABG HCO3 ABG Total CO2 ABG O2 Saturation ABG Base Excess Hemoglobin Hematocrit Potassium Glucose Sodium Chloride Carbon Dioxide Anion Gap BUN Creatinine GFR Calculation BUN/Creatinine Ratio POC Glucose 98 110 H 113 H Calculated Osmolality Calcium Magnesium Total Bilirubin Direct Bilirubin AST ALT Alkaline Phosphatase Total Creatine Kinase CK-MB (CK-2) CK and CKMB Interp Troponin I Total Protein Albumin Globulin Albumin/Globulin Ratio Homocysteine Blood Type Antibody Screen Crossmatch 09/28/16 09/28/16 09/28/16 04:10 04:10 04:10 WBC 17.1 H D RBC 3.87 Hgb 10.7 L Hct 33.3 L MCV 86.0 L MCH 28 MCHC 32.1 RDW 12.9 Plt Count 243 MPV 10.3 Neut % (Auto) 91.9 H Lymph % (Auto) 5.4 L [place] % (Auto) 2.0 Eos % (Auto) 0.0 Baso % (Auto) 0.1 Neut # (Auto) 15.7 H Lymph # (Auto) 0.9 L [place] # (Auto) 0.3 Eos # (Auto) 0.0 Baso # (Auto) 0.0 Total Counted 100 Immature Gran % 0.6 Nucleated RBC % 0.0 Immature Gran # 0.11 Segmented Neutrophils 92 H Lymphocytes 6 L Monocytes 2 Nucleated RBCs # 0.00 Platelet Estimate Adequate Hypochromasia Slight Microcytosis Slight [place] Cells Slight Morphology Comment PT INR APTT PT Normal/Saline 1:1 Thrombin Time Lupus aPPT Interpret Dil Tyrell Viper Venom Lupus Anticoag Review Circ Anticoag PTT Protein C Activity Protein S Activity Protein S Antigen Antithrombin Antithrombin III Activ ABG pH 7.397 ABG pCO2 40.8 ABG pO2 57.4 L ABG HCO3 24.5 ABG Total CO2 22.6 L ABG O2 Saturation 88.3 L ABG Base Excess 0.3 Hemoglobin 11.0 L Hematocrit 34.1 L Potassium 4.6 4.3 Glucose 109 H 123 H Sodium 143 Chloride 110 H Carbon Dioxide 25 Anion Gap 12.6 BUN 11 Creatinine 0.90 GFR Calculation 202 BUN/Creatinine Ratio 12.00 POC Glucose Calculated Osmolality 284.0 Calcium 7.6 L Magnesium 2.1 Total Bilirubin 0.50 Direct Bilirubin 0.2 AST 46 H ALT 79 H Alkaline Phosphatase 45 Total Creatine Kinase CK-MB (CK-2) CK and CKMB Interp Troponin I Total Protein 5.7 L Albumin 2.4 L Globulin 3.3 Albumin/Globulin Ratio 0.7 L Homocysteine Blood Type Antibody Screen Crossmatch 09/28/16 09/28/16 09/28/16 05:06 06:11 06:58 WBC RBC Hgb Hct MCV MCH MCHC RDW Plt Count MPV Neut % (Auto) Lymph % (Auto) [place] % (Auto) Eos % (Auto) Baso % (Auto) Neut # (Auto) Lymph # (Auto) [place] # (Auto) Eos # (Auto) Baso # (Auto) Total Counted Immature Gran % Nucleated RBC % Immature Gran # Segmented Neutrophils Lymphocytes Monocytes Nucleated RBCs # Platelet Estimate Hypochromasia Microcytosis [place] Cells Morphology Comment PT INR APTT PT Normal/Saline 1:1 Thrombin Time Lupus aPPT Interpret Dil Tyrell Viper Venom Lupus Anticoag Review Circ Anticoag PTT Protein C Activity Protein S Activity Protein S Antigen Antithrombin Antithrombin III Activ ABG pH 7.403 ABG pCO2 40.2 ABG pO2 66.7 L ABG HCO3 24.6 ABG Total CO2 22.5 L ABG O2 Saturation 92.7 L ABG Base Excess 0.3 Hemoglobin Hematocrit Potassium Glucose Sodium Chloride Carbon Dioxide Anion Gap BUN Creatinine GFR Calculation BUN/Creatinine Ratio POC Glucose 113 H 113 H Calculated Osmolality Calcium Magnesium Total Bilirubin Direct Bilirubin AST ALT Alkaline Phosphatase Total Creatine Kinase CK-MB (CK-2) CK and CKMB Interp Troponin I Total Protein Albumin Globulin Albumin/Globulin Ratio Homocysteine Blood Type Antibody Screen Crossmatch 09/28/16 09/28/16 09/28/16 07:00 10:05 13:30 WBC RBC Hgb Hct MCV MCH MCHC RDW Plt Count MPV Neut % (Auto) Lymph % (Auto) [place] % (Auto) Eos % (Auto) Baso % (Auto) Neut # (Auto) Lymph # (Auto) [place] # (Auto) Eos # (Auto) Baso # (Auto) Total Counted Immature Gran % Nucleated RBC % Immature Gran # Segmented Neutrophils Lymphocytes Monocytes Nucleated RBCs # Platelet Estimate Hypochromasia Microcytosis [place] Cells Morphology Comment PT INR APTT PT Normal/Saline 1:1 Thrombin Time Lupus aPPT Interpret Dil Tyrell Viper Venom Lupus Anticoag Review Circ Anticoag PTT Protein C Activity Protein S Activity Protein S Antigen Antithrombin Antithrombin III Activ ABG pH 7.449 ABG pCO2 36.8 ABG pO2 58.5 L ABG HCO3 24.9 ABG Total CO2 26.1 ABG O2 Saturation 89.5 L ABG Base Excess 1.1 Hemoglobin Hematocrit Potassium Glucose 120 H Sodium Chloride Carbon Dioxide Anion Gap BUN Creatinine GFR Calculation BUN/Creatinine Ratio POC Glucose Calculated Osmolality Calcium Magnesium Total Bilirubin Direct Bilirubin AST ALT Alkaline Phosphatase Total Creatine Kinase 358 H D CK-MB (CK-2) 27.2 H CK and CKMB Interp 7.6 Troponin I 3.430 H Total Protein Albumin Globulin Albumin/Globulin Ratio Homocysteine Blood Type Antibody Screen Crossmatch 09/28/16 13:30 WBC RBC Hgb Hct MCV MCH MCHC RDW Plt Count MPV Neut % (Auto) Lymph % (Auto) [place] % (Auto) Eos % (Auto) Baso % (Auto) Neut # (Auto) Lymph # (Auto) [place] # (Auto) Eos # (Auto) Baso # (Auto) Total Counted Immature Gran % Nucleated RBC % Immature Gran # Segmented Neutrophils Lymphocytes Monocytes Nucleated RBCs # Platelet Estimate Hypochromasia Microcytosis [place] Cells Morphology Comment PT INR APTT PT Normal/Saline 1:1 Thrombin Time Lupus aPPT Interpret Dil Tyrell Viper Venom Lupus Anticoag Review Circ Anticoag PTT 28.3 Protein C Activity Protein S Activity Protein S Antigen Antithrombin Antithrombin III Activ ABG pH ABG pCO2 ABG pO2 ABG HCO3 ABG Total CO2 ABG O2 Saturation ABG Base Excess Hemoglobin Hematocrit Potassium Glucose Sodium Chloride Carbon Dioxide Anion Gap BUN Creatinine GFR Calculation BUN/Creatinine Ratio POC Glucose Calculated Osmolality Calcium Magnesium Total Bilirubin Direct Bilirubin AST ALT Alkaline Phosphatase Total Creatine Kinase CK-MB (CK-2) CK and CKMB Interp Troponin I Total Protein Albumin Globulin Albumin/Globulin Ratio Homocysteine Blood Type Antibody Screen Crossmatch Quality Measures - VTE Contraindication to Pharmacological VTE Prophylaxis: Active Bleeding Specialty Discharge - Follow Up or Referrals - Discharge Medications No Action No Known Home Medications [No Known Home Medications]
[2016-09-28] MEDS ORDERED: hydrALAZINE 20 MG/1 ML VIAL IV PRN (20:27)
[2016-09-28 20:56] LABS: F5DNA Reviewed By SEE COMMENTS; Factor V Leiden (R506Q) Mutati Negative (Negative); PTNT Reviewed By SEE COMMENTS
[2016-09-28] MEDS: METOPROLOL TARTRATE 5 MG/5 ML VIAL IV SCH (21:15)
[2016-09-29] MEDS: CEFUROXIME INJ 1,500 MG in SODIUM CHLORIDE 0.9% 100 ML IV SCH (00:04)
[2016-09-29] MEDS: HEPARIN DRIP 25,000 UNITS/500 ML PREMIX IV SCH ×2 (01:42→14:56)
[2016-09-29] MEDS: METOPROLOL TARTRATE 5 MG/5 ML VIAL IV SCH (02:56)
[2016-09-29] MEDS: MORPHINE 10 MG/1 ML VIAL IV PRN ×2 (02:56→09:08)
[2016-09-29 03:26] LABS: ABG Base Excess 4.9 MMOL/L (-2.5-2.5); ABG HCO3 29.2 MMOL/L (20-26); ABG Oxygen Saturation 96.5 % (95-100); ABG PCO2 41.8 MM HG (35-48); ABG PH 7.462 (7.35-7.45); ABG PO2 90.2 MM HG (80-95); ABG TCO2 30.5 MMOL/L (23-27); Allen Test Positive
[2016-09-29 04:08] LABS: Basophils % 0.1 % (0.0-0.8); Eosinophils % 0.1 % (0.00-10.9); Hematocrit 30.1 VOL% (42.0-52.0); Hemoglobin 9.6 GM/DL (14.0-18.0); Immature Granulocytes % 0.6 %; Lymphocytes % 11.3 % (21.2-54.2); Mean Corpuscular HGB Conc 31.9 GM/DL (32-36); Mean Corpuscular Hemoglobin 28 PG (27-34); Mean Corpuscular Volume 86.5 FL (87-102); Mean Platelet Volume 10.3 FL (9.6-12.0); Monocytes # 1.5 10*3/uL (0.11-0.8); Monocytes % 8.3 % (1.7-12.7); Neutrophils # 13.9 10*3/uL (1.4-7.4); Neutrophils % 79.6 % (38.7-73.9); Platelet Count 225 10*3/uL (130-400); Red Blood Count 3.48 10*6/uL (3.8-5.5); Red Cell Distribution Width 12.9 % (9.3-17.3); White Blood Count 17.5 10*3/uL (4.5-13.71)
[2016-09-29 05:07] LABS: Alanine Aminotransferase 79 U/L (16-61); Albumin 2.3 G/DL (3.4-5.0); Alkaline Phosphatase 49 U/L (45-117); Aspartate Amino Transferase 47 U/L (0-37); Bilirubin,Direct 0.1 MG/DL (0.0-0.20); Bilirubin,Total < 0.39 MG/DL (0.2-1.0); Blood Urea Nitrogen 11 MG/DL (7-18); Calcium 7.5 MG/DL (8.5-10.1); Glucose 97 MG/DL (74-106); Magnesium 1.9 MG/DL (1.8-2.4); Osmolality,Calculated 281.1 MOS/KG (273-304); Potassium 4.2 MMOL/L (3.5-5.1); Sodium 142 MMOL/L (136-145)
--- NOTE | 2016-09-29 07:01 | XRay Report ---
Exam: XR chest 1V portable Indication: Chest tube removal, status post CABG Comparison study: 09/28/16 Findings: Cardiac silhouette and mediastinal contours appear stable from prior no mediastinal drains are in similar position. There is minimal perihilar and basilar interstitial opacities with blunting of the costophrenic angles and basilar opacities slightly worse on the left which appear essentially stable from prior. There is no pneumothorax. Right-sided venous sheath in similar position. Median sternotomy wiring again noted. Osseous structures appear stable. Impression: Similar position of mediastinal drains. No pneumothorax. Minimal perihilar and basilar interstitial/airspace opacities likely representing a degree of underlying interstitial edema with basilar atelectasis and small pleural effusions. Developing infiltrates cannot be excluded. Continued followup is recommended. PROCEDURE INTERPRETED AT [facility] DEPARTMENT OF RADIOLOGY Final Report Signed by: Ld Pérez
[2016-09-29] MEDS: SODIUM CHLORIDE 0.45% 1,000 ML IV SCH (07:34)
--- NOTE | 2016-09-29 07:40 | Cardiology Progress Note ---
Cardiology - PN: Subj Interval history: Cardiology note Postop day #2 emergent embolectomy for saddle thrombus caught in the PFO with pericardial patch repair of interatrial septum Alert responsive Telemetry shows sinus rhythm in the 80s Blood pressure 130/74 O2 sat 97% Chest tube drainage decreasing Decreased breath sounds with basilar rhonchi Regular rhythm no gallop trace leg edema Lab data today White count 17.5 hemoglobin 9.6 hematocrit 30.1 platelet count 225,000 Sodium 142 potassium 4.2 chloride 105 CO2 30 BUN 11 creatinine 0.90 glucose 97 Magnesium 1.9 Impression Status post emergent embolectomy for large thrombus caught interatrial septum Hypercoagulable state Pulmonary embolus September 23 Plan Chest tubes out soon Anticoagulation Monitor rhythm 1 Exam (Progress Note) - Constitutional Vitals: Period Temp Pulse Resp BP Sys/Rodríguez Pulse Ox Last 24 Hr 98.2 F-100.0 F 76-85 10-34 113-164/70-91 91-100 Result/EKG - Labs CBC & BMP: 09/29/16 03:53 09/29/16 03:53 Labs: Laboratory Results - last 24 hr 09/23/16 09/27/16 09/27/16 11:37 18:08 20:27 WBC RBC Hgb Hct MCV MCH MCHC RDW Plt Count MPV Neut % (Auto) Lymph % (Auto) [place] % (Auto) Eos % (Auto) Baso % (Auto) Neut # (Auto) Lymph # (Auto) [place] # (Auto) Eos # (Auto) Baso # (Auto) Immature Gran % Nucleated RBC % Immature Gran # Nucleated RBCs # PT 14.5 H INR 1.3 APTT 27 PT Normal/Saline 1:1 12.5 Thrombin Time 18 Lupus aPPT Interpret See comments Dil Tyrell Viper Venom 1.0 Lupus Anticoag Review Bhaskar byers m.d. Circ Anticoag PTT Protein C Activity 69 L Protein S Activity 95 Protein S Antigen 101 Antithrombin 72 L Antithrombin III Activ 80 F II Prothromb Interp See comments Factor V Leiden Mutat Negative Factor V Leiden Interp See comments Fact V Leiden Review By See comments ABG pH ABG pCO2 ABG pO2 ABG HCO3 ABG Total CO2 ABG O2 Saturation ABG Base Excess FiO2 Sodium Potassium Chloride Carbon Dioxide Anion Gap BUN Creatinine GFR Calculation BUN/Creatinine Ratio Glucose POC Glucose 143 H 152 H Calculated Osmolality Calcium Magnesium Total Bilirubin Direct Bilirubin AST ALT Alkaline Phosphatase Total Creatine Kinase CK-MB (CK-2) CK and CKMB Interp Troponin I Total Protein Albumin Globulin Albumin/Globulin Ratio Homocysteine 12 Prothrombin [id number] Mut Negative Factor II Mutation See comments Blood Type Antibody Screen Crossmatch 09/27/16 09/27/16 09/27/16 21:13 22:13 23:13 WBC RBC Hgb Hct MCV MCH MCHC RDW Plt Count MPV Neut % (Auto) Lymph % (Auto) [place] % (Auto) Eos % (Auto) Baso % (Auto) Neut # (Auto) Lymph # (Auto) [place] # (Auto) Eos # (Auto) Baso # (Auto) Immature Gran % Nucleated RBC % Immature Gran # Nucleated RBCs # PT INR APTT PT Normal/Saline 1:1 Thrombin Time Lupus aPPT Interpret Dil Tyrell Viper Venom Lupus Anticoag Review Circ Anticoag PTT Protein C Activity Protein S Activity Protein S Antigen Antithrombin Antithrombin III Activ F II Prothromb Interp Factor V Leiden Mutat Factor V Leiden Interp Fact V Leiden Review By ABG pH ABG pCO2 ABG pO2 ABG HCO3 ABG Total CO2 ABG O2 Saturation ABG Base Excess FiO2 Sodium Potassium Chloride Carbon Dioxide Anion Gap BUN Creatinine GFR Calculation BUN/Creatinine Ratio Glucose POC Glucose 145 H 136 H 112 H Calculated Osmolality Calcium Magnesium Total Bilirubin Direct Bilirubin AST ALT Alkaline Phosphatase Total Creatine Kinase CK-MB (CK-2) CK and CKMB Interp Troponin I Total Protein Albumin Globulin Albumin/Globulin Ratio Homocysteine Prothrombin [id number] Mut Factor II Mutation Blood Type Antibody Screen Crossmatch 09/27/16 09/28/16 09/28/16 Unknown 00:18 01:11 WBC RBC Hgb Hct MCV MCH MCHC RDW Plt Count MPV Neut % (Auto) Lymph % (Auto) [place] % (Auto) Eos % (Auto) Baso % (Auto) Neut # (Auto) Lymph # (Auto) [place] # (Auto) Eos # (Auto) Baso # (Auto) Immature Gran % Nucleated RBC % Immature Gran # Nucleated RBCs # PT INR APTT PT Normal/Saline 1:1 Thrombin Time Lupus aPPT Interpret Dil Tyrell Viper Venom Lupus Anticoag Review Circ Anticoag PTT Protein C Activity Protein S Activity Protein S Antigen Antithrombin Antithrombin III Activ F II Prothromb Interp Factor V Leiden Mutat Factor V Leiden Interp Fact V Leiden Review By ABG pH ABG pCO2 ABG pO2 ABG HCO3 ABG Total CO2 ABG O2 Saturation ABG Base Excess FiO2 Sodium Potassium Chloride Carbon Dioxide Anion Gap BUN Creatinine GFR Calculation BUN/Creatinine Ratio Glucose POC Glucose 97 98 Calculated Osmolality Calcium Magnesium Total Bilirubin Direct Bilirubin AST ALT Alkaline Phosphatase Total Creatine Kinase CK-MB (CK-2) CK and CKMB Interp Troponin I Total Protein Albumin Globulin Albumin/Globulin Ratio Homocysteine Prothrombin [id number] Mut Factor II Mutation Blood Type B POSITIVE Antibody Screen Negative Crossmatch See Detail 09/28/16 09/28/16 09/28/16 02:09 03:11 05:06 WBC RBC Hgb Hct MCV MCH MCHC RDW Plt Count MPV Neut % (Auto) Lymph % (Auto) [place] % (Auto) Eos % (Auto) Baso % (Auto) Neut # (Auto) Lymph # (Auto) [place] # (Auto) Eos # (Auto) Baso # (Auto) Immature Gran % Nucleated RBC % Immature Gran # Nucleated RBCs # PT INR APTT PT Normal/Saline 1:1 Thrombin Time Lupus aPPT Interpret Dil Tyrell Viper Venom Lupus Anticoag Review Circ Anticoag PTT Protein C Activity Protein S Activity Protein S Antigen Antithrombin Antithrombin III Activ F II Prothromb Interp Factor V Leiden Mutat Factor V Leiden Interp Fact V Leiden Review By ABG pH ABG pCO2 ABG pO2 ABG HCO3 ABG Total CO2 ABG O2 Saturation ABG Base Excess FiO2 Sodium Potassium Chloride Carbon Dioxide Anion Gap BUN Creatinine GFR Calculation BUN/Creatinine Ratio Glucose POC Glucose 110 H 113 H 113 H Calculated Osmolality Calcium Magnesium Total Bilirubin Direct Bilirubin AST ALT Alkaline Phosphatase Total Creatine Kinase CK-MB (CK-2) CK and CKMB Interp Troponin I Total Protein Albumin Globulin Albumin/Globulin Ratio Homocysteine Prothrombin [id number] Mut Factor II Mutation Blood Type Antibody Screen Crossmatch 09/28/16 09/28/16 09/28/16 06:11 07:00 10:05 WBC RBC Hgb Hct MCV MCH MCHC RDW Plt Count MPV Neut % (Auto) Lymph % (Auto) [place] % (Auto) Eos % (Auto) Baso % (Auto) Neut # (Auto) Lymph # (Auto) [place] # (Auto) Eos # (Auto) Baso # (Auto) Immature Gran % Nucleated RBC % Immature Gran # Nucleated RBCs # PT INR APTT PT Normal/Saline 1:1 Thrombin Time Lupus aPPT Interpret Dil Tyrell Viper Venom Lupus Anticoag Review Circ Anticoag PTT Protein C Activity Protein S Activity Protein S Antigen Antithrombin Antithrombin III Activ F II Prothromb Interp Factor V Leiden Mutat Factor V Leiden Interp Fact V Leiden Review By ABG pH 7.449 ABG pCO2 36.8 ABG pO2 58.5 L ABG HCO3 24.9 ABG Total CO2 26.1 ABG O2 Saturation 89.5 L ABG Base Excess 1.1 FiO2 Sodium Potassium Chloride Carbon Dioxide Anion Gap BUN Creatinine GFR Calculation BUN/Creatinine Ratio Glucose 120 H POC Glucose 113 H Calculated Osmolality Calcium Magnesium Total Bilirubin Direct Bilirubin AST ALT Alkaline Phosphatase Total Creatine Kinase CK-MB (CK-2) CK and CKMB Interp Troponin I Total Protein Albumin Globulin Albumin/Globulin Ratio Homocysteine Prothrombin [id number] Mut Factor II Mutation Blood Type Antibody Screen Crossmatch 09/28/16 09/28/16 09/28/16 13:30 13:30 19:20 WBC RBC Hgb Hct MCV MCH MCHC RDW Plt Count MPV Neut % (Auto) Lymph % (Auto) [place] % (Auto) Eos % (Auto) Baso % (Auto) Neut # (Auto) Lymph # (Auto) [place] # (Auto) Eos # (Auto) Baso # (Auto) Immature Gran % Nucleated RBC % Immature Gran # Nucleated RBCs # PT INR APTT PT Normal/Saline 1:1 Thrombin Time Lupus aPPT Interpret Dil Tyrell Viper Venom Lupus Anticoag Review Circ Anticoag PTT 28.3 78.0 H D Protein C Activity Protein S Activity Protein S Antigen Antithrombin Antithrombin III Activ F II Prothromb Interp Factor V Leiden Mutat Factor V Leiden Interp Fact V Leiden Review By ABG pH ABG pCO2 ABG pO2 ABG HCO3 ABG Total CO2 ABG O2 Saturation ABG Base Excess FiO2 Sodium Potassium Chloride Carbon Dioxide Anion Gap BUN Creatinine GFR Calculation BUN/Creatinine Ratio Glucose POC Glucose Calculated Osmolality Calcium Magnesium Total Bilirubin Direct Bilirubin AST ALT Alkaline Phosphatase Total Creatine Kinase 358 H D CK-MB (CK-2) 27.2 H CK and CKMB Interp 7.6 Troponin I 3.430 H Total Protein Albumin Globulin Albumin/Globulin Ratio Homocysteine Prothrombin [id number] Mut Factor II Mutation Blood Type Antibody Screen Crossmatch 09/29/16 09/29/16 09/29/16 01:51 03:15 03:53 WBC 17.5 H RBC 3.48 L Hgb 9.6 L Hct 30.1 L MCV 86.5 L MCH 28 MCHC 31.9 L RDW 12.9 Plt Count 225 MPV 10.3 Neut % (Auto) 79.6 H Lymph % (Auto) 11.3 L [place] % (Auto) 8.3 Eos % (Auto) 0.1 Baso % (Auto) 0.1 Neut # (Auto) 13.9 H Lymph # (Auto) 2.0 Harris # (Auto) 1.5 H Eos # (Auto) 0.0 Baso # (Auto) 0.0 Immature Gran % 0.6 Nucleated RBC % 0.0 Immature Gran # 0.10 Nucleated RBCs # 0.00 PT INR APTT PT Normal/Saline 1:1 Thrombin Time Lupus aPPT Interpret Dil Tyrell Viper Venom Lupus Anticoag Review Circ Anticoag PTT 129.4 H* Protein C Activity Protein S Activity Protein S Antigen Antithrombin Antithrombin III Activ F II Prothromb Interp Factor V Leiden Mutat Factor V Leiden Interp Fact V Leiden Review By ABG pH 7.462 H ABG pCO2 41.8 ABG pO2 90.2 ABG HCO3 29.2 H ABG Total CO2 30.5 H ABG O2 Saturation 96.5 ABG Base Excess 4.9 H FiO2 40.00 Sodium Potassium Chloride Carbon Dioxide Anion Gap BUN Creatinine GFR Calculation BUN/Creatinine Ratio Glucose POC Glucose Calculated Osmolality Calcium Magnesium Total Bilirubin Direct Bilirubin AST ALT Alkaline Phosphatase Total Creatine Kinase CK-MB (CK-2) CK and CKMB Interp Troponin I Total Protein Albumin Globulin Albumin/Globulin Ratio Homocysteine Prothrombin [id number] Mut Factor II Mutation Blood Type Antibody Screen Crossmatch 09/29/16 03:53 WBC RBC Hgb Hct MCV MCH MCHC RDW Plt Count MPV Neut % (Auto) Lymph % (Auto) Harris % (Auto) Eos % (Auto) Baso % (Auto) Neut # (Auto) Lymph # (Auto) Harris # (Auto) Eos # (Auto) Baso # (Auto) Immature Gran % Nucleated RBC % Immature Gran # Nucleated RBCs # PT INR APTT PT Normal/Saline 1:1 Thrombin Time Lupus aPPT Interpret Dil Tyrell Viper Venom Lupus Anticoag Review Circ Anticoag PTT Protein C Activity Protein S Activity Protein S Antigen Antithrombin Antithrombin III Activ F II Prothromb Interp Factor V Leiden Mutat Factor V Leiden Interp Fact V Leiden Review By ABG pH ABG pCO2 ABG pO2 ABG HCO3 ABG Total CO2 ABG O2 Saturation ABG Base Excess FiO2 Sodium 142 Potassium 4.2 Chloride 105 Carbon Dioxide 30 Anion Gap 11.2 BUN 11 Creatinine 0.90 GFR Calculation 207 BUN/Creatinine Ratio 12.00 Glucose 97 POC Glucose Calculated Osmolality 281.1 Calcium 7.5 L Magnesium 1.9 Total Bilirubin < 0.39 Direct Bilirubin 0.1 AST 47 H ALT 79 H Alkaline Phosphatase 49 Total Creatine Kinase CK-MB (CK-2) CK and CKMB Interp Troponin I Total Protein 6.0 L Albumin 2.3 L Globulin 3.7 H Albumin/Globulin Ratio 0.6 L Homocysteine Prothrombin [id number] Mut Factor II Mutation Blood Type Antibody Screen Crossmatch Quality Measures - VTE Contraindication to Pharmacological VTE Prophylaxis: Active Bleeding Specialty Discharge - Follow Up or Referrals - Discharge Medications No Action No Known Home Medications [No Known Home Medications]
--- NOTE | 2016-09-29 08:14 | Hematology Consult ---
Assessment and Plan (1) Atrial septal defect of fossa ovalis Status: Acute Current Visit: Yes (2) Left atrial thrombus Status: Acute Current Visit: Yes (3) Cocaine abuse Status: Acute Current Visit: No (4) Pulmonary embolism Status: Acute Current Visit: Yes (5) Acute cor pulmonale Status: Acute Current Visit: Yes History of Present Illness - Consult Narrative History of present illness: Mr. Espinal is a 26 year old male who was admitted on 09/23/2016 with massive pulmonary emboli. Echo at that time also showed a mobile mass attached to the left atrium that was most likely thrombus. He has undergone thrombolytic therapy and also cardiac thrombus resection with repair of his PFO. He is currently on heparin infusion. 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 These labs were drawn after he received a large heparin bolus which can have significant effects on a hypercoagulable workup. Also his antithrombin III level was only slightly low which also raises the question that this was a heparin effect. He also had a slightly low protein S level. Regardless of his hypercoagulable workup, he will need to be on anticoagulation for a very long time if not the rest of his life given his current clinical situation. He has significant risk factors for thrombus development including cigarette usage and cocaine usage. He has no family history of clots and he has never had any type of clot before. I think at this point he needs to be on anticoagulation for at least 5-10 years and then we could consider repeating his hypercoagulable workup at that time to decide if taking him off of blood thinner is appropriate. This would give enough time for him to stop all of his high risk social behaviors and to see if any further clots developed. As far as his outpatient anticoagulation, any blood thinner will work just as well and another, and I have no preference for this. He needs to be established with some type of physician for long-term follow-up particularly if he is placed on Coumadin. He does not need frequent hematology visits for this. I'll be happy to see him in 6-12 months in clinic just to keep him in the system so that a few years from now we can recheck his genetic workup. CC: Gwen Grier - Home Medications and Allergies Home Medications: Home Medications Medication Instructions Recorded Confirmed Type No Known Home Medications [No 09/23/16 09/23/16 History Known Home Medications] Allergies/Adverse Reactions: Allergies Allergy/AdvReac Type Severity Reaction Status Date / Time guaifenesin [From Robitussin] Allergy ANAPHYLAXIS Verified 12/08/15 01:52 iodine Allergy ANAPHYLAXIS Verified 09/23/16 10:05 Medical,Surgical,& Family Hx - Medical History Psychological: History of: Psychiatric/Substance Abuse Tx No history of: Anxiety Disorders, ADHD, Behavior Problems, Bipolar Disorder, Depression, Previous Suicide Attempt, Schizophrenia, Violent Behavior, Psychiatric Problems Respiratory: History of: Pulmonary Embolism (This admission) Musculoskeletal: History of: Musculoskeletal Problems (skin graft from left thigh to left axilla 2012) Other: History of: Anaphylaxis (Shellfish), Skin Problems (Skin graft to Left armpit) No history of: Cancer, HIV, MRSA - Surgical History Neurologic Surgeries: Patient denies: Neurologic Surgery - Family History Family History: Reports;: Family Hypertension (mother) - Social History Smoking Status: Current every day smoker Frequency of Alcohol Use: Occasionally Type of Drug Use: Cocaine 12 point system: reviewed and no additional remarkable complaints except as stated Exam - Constitutional Vitals: Period Temp Pulse Resp BP Sys/Rodríguez Pulse Ox Last 24 Hr 98.2 F-100.0 F 76-85 10-34 113-164/70-91 91-100 General appearance: normal weight, no acute distress - Head Head Exam: Present: normocephalic, atraumatic - Eye Eye Exam: Present: EOMI Pupils: Present: PERRL - ENT ENT exam: Present: normal exam, normal oropharynx - Neck Neck exam: Absent: lymphadenopathy, thyromegaly - Respiratory Respiratory exam: Present: CTAB. Absent: wheezes - Cardiovascular Cardiovascular exam: Present: RRR. Absent: irregular rhythm, JVD - GI/Abdominal GI/Abdominal exam: Present: soft. Absent: ascites, distended, mass - Neurological Exam Neurological exam: Present: alert, oriented X3 - Psychiatric Psychiatric exam: Present: normal affect, normal mood - Skin Skin exam: Present: warm, dry Results - Labs CBC & BMP: 09/29/16 03:53 09/29/16 03:53 Lab Results: I have reviewed the past 24 hour labs - Diagnostic Findings Procedure: Ultrasound: report reviewed by me Quality Measures - VTE Contraindication to Pharmacological VTE Prophylaxis: Active Bleeding Specialty Discharge - Follow Up or Referrals - Discharge Medications No Action No Known Home Medications [No Known Home Medications]
[2016-09-29] MEDS: NICOTINE 21 MG/24 HR PATCH TRANSDERM SCH (08:55)
[2016-09-29] MEDS: FUROSEMIDE 40 MG/4 ML VIAL IV SCH (09:07)
[2016-09-29] MEDS: METOPROLOL SUCCINATE XL 50 MG TABLET PO SCH (09:09)
[2016-09-29] MEDS: SILDENAFIL 20 MG TABLET PO SCH ×3 (09:09→21:30)
[2016-09-29] MEDS: POTASSIUM CHLORIDE 20 MEQ TABLET PO SCH (09:09)
[2016-09-29] MEDS: LISINOPRIL 10 MG TABLET PO SCH (09:09)
[2016-09-29] MEDS ORDERED: METOPROLOL TARTRATE 5 MG/5 ML VIAL IV PRN (10:21)
--- NOTE | 2016-09-29 11:01 | XRay Report ---
Exam: XR chest 1V portable Indication: Status post CABG, mediastinal drain removal Comparison study: 09/29/16 at 3:19 AM Findings: Cardiac silhouette and basal contours appear stable from prior. The right-sided venous sheath has been removed. The mediastinal drains are no longer visualized. There is no significant pneumothorax or other, patient following drain removal. Minimal perihilar and basilar interstitial opacities appear essentially unchanged. Osseous structures appear stable. Impression: Interval removal of the mediastinal drains and right-sided venous catheter. No pneumothorax or other significant complication. Similar perihilar and basilar opacities likely representing atelectasis and trace pleural effusions. PROCEDURE INTERPRETED AT [facility] DEPARTMENT OF RADIOLOGY Final Report Signed by: Ld Pérez
[2016-09-29] MEDS: CHLORHEXIDINE 0.12% ORAL RINSE 60 ML BOTTLE SWISH/SPIT SCH (11:31)
[2016-09-29] MEDS: PANTOPRAZOLE 40 MG TABLET PO SCH (11:31)
[2016-09-29] MEDS ORDERED: INFLUENZA VIRUS VACCINE 0.5 ML SYRINGE IM ONE (13:01)
[2016-09-29] MEDS: APIXABAN 5 MG TABLET PO SCH (21:30)
[2016-09-29] MEDS: BENZONATATE 100 MG CAPSULE PO PRN (21:34)
[2016-09-30 06:48] LABS: Basophils % 0.2 % (0.0-0.8); Eosinophils # 0.2 10*3/uL (0.0-0.87); Eosinophils % 1.6 % (0.00-10.9); Hematocrit 30.5 VOL% (42.0-52.0); Immature Granulocytes % 0.7 %; Immature Granulocytes Absolute 0.08 #; Lymphocytes # 2.4 10*3/uL (1.4-4.0); Lymphocytes % 20.8 % (21.2-54.2); Mean Corpuscular HGB Conc 32.8 GM/DL (32-36); Mean Corpuscular Hemoglobin 28 PG (27-34); Mean Corpuscular Volume 85.2 FL (87-102); Mean Platelet Volume 10.3 FL (9.6-12.0); Monocytes % 8.8 % (1.7-12.7); Neutrophils # 7.8 10*3/uL (1.4-7.4); Neutrophils % 67.9 % (38.7-73.9); Platelet Count 267 10*3/uL (130-400); Red Blood Count 3.58 10*6/uL (3.8-5.5); Red Cell Distribution Width 12.7 % (9.3-17.3); White Blood Count 11.5 10*3/uL (4.5-13.71)
--- NOTE | 2016-09-30 07:03 | Cardiothoracic Progress Note ---
Assessment and Plan - Time spent with patient Time spent with patient: Greater than 30 minutes Time spent discussing smoking cessation with patient: more than 10 minutes (1) Pulmonary embolism Status: Acute Assessment and plan: POD3 S/P Emergency right and left atrial Thrombectomy, repair of ASD with pericardial patch. The pt has been doing well, on NC, sats has been high 90s. Started Eliquis. OOB, PT, Lasix, likely discharge tomorrow. Current Visit: Yes Cardiothoracic Subjective Interval history: Patient doing well with no complaints. [facility]. Cont to tolerate 4L NC Exam (Progress Note) - Constitutional Vitals: Period Temp Pulse Resp BP Sys/Rodríguez Pulse Ox Last 24 Hr 97.7 F-100.0 F 75-85 16-31 112-157/53-86 91-100 General appearance: morbidly obese - Head Head exam: Present: normal inspection - Eye Eye exam: Present: EOMI Pupils: Present: MIRANDA - ENT ENT exam: Present: normal exam - Neck Neck exam: Present: normal inspection - Respiratory Respiratory exam: Present: decreased breath sounds - Cardiovascular Cardiovascular exam: Present: regular rate and rhythm Result/EKG - Labs CBC & BMP: 09/30/16 04:29 09/29/16 03:53 Labs: Laboratory Results - last 24 hr 09/29/16 09/29/16 09/30/16 07:45 18:16 04:29 WBC 11.5 D RBC 3.58 L Hgb 10.0 L Hct 30.5 L MCV 85.2 L MCH 28 MCHC 32.8 RDW 12.7 Plt Count 267 MPV 10.3 Neut % (Auto) 67.9 Lymph % (Auto) 20.8 L [place] % (Auto) 8.8 Eos % (Auto) 1.6 Baso % (Auto) 0.2 Neut # (Auto) 7.8 H Lymph # (Auto) 2.4 [place] # (Auto) 1.0 H Eos # (Auto) 0.2 Baso # (Auto) 0.0 Immature Gran % 0.7 Nucleated RBC % 0.0 Immature Gran # 0.08 Nucleated RBCs # 0.00 Circ Anticoag PTT 99.8 H D 33.4 D Quality Measures - VTE Contraindication to Pharmacological VTE Prophylaxis: Active Bleeding Specialty Discharge - Follow Up or Referrals - Discharge Medications No Action No Known Home Medications [No Known Home Medications]
[2016-09-30 07:30] LABS: Albumin 2.4 G/DL (3.4-5.0); Bilirubin,Direct 0.1 MG/DL (0.0-0.20); Bilirubin,Total 0.8 MG/DL (0.2-1.0); Calcium 8.1 MG/DL (8.5-10.1); Magnesium 1.9 MG/DL (1.8-2.4); Osmolality,Calculated 281.1 MOS/KG (273-304); Potassium 4.1 MMOL/L (3.5-5.1); Total Protein 6.5 G/DL (6.4-8.3)
--- NOTE | 2016-09-30 07:52 | XRay Report ---
Exam: XR chest 1V portable Indication: Status post CABG and chest tube removal Comparison study: 09/29/16 Findings: Cardiac silhouette is mildly enlarged, stable from prior. Mild patchy perihilar interstitial opacities are slightly increased from the prior study, possibly representing atelectasis or interstitial edema changes. Low lung volumes are noted with basilar opacities and blunting of left costophrenic angle likely representing trace pleural fluid, which is similar to prior. There is no pneumothorax. Osseous structures appear stable from prior. Impression: Stable mild cardiomegaly and postsurgical changes. Slight worsening of perihilar/basilar interstitial and airspace opacities may represent a degree of interstitial edema changes with bibasilar atelectasis and trace pleural effusions. PROCEDURE INTERPRETED AT [facility] DEPARTMENT OF RADIOLOGY Final Report Signed by: Ld Pérez
[2016-09-30] MEDS: METOPROLOL TARTRATE 5 MG/5 ML VIAL IV SCH (08:12)
[2016-09-30] MEDS: BENZONATATE 100 MG CAPSULE PO PRN (09:33)
[2016-09-30] MEDS: PANTOPRAZOLE 40 MG TABLET PO SCH (09:34)
[2016-09-30] MEDS: LISINOPRIL 10 MG TABLET PO SCH (09:34)
[2016-09-30] MEDS: METOPROLOL SUCCINATE XL 25 MG TABLET PO SCH (09:34)
[2016-09-30] MEDS: APIXABAN 5 MG TABLET PO SCH ×2 (09:34→20:33)
[2016-09-30] MEDS: NICOTINE 21 MG/24 HR PATCH TRANSDERM SCH (09:35)
[2016-09-30] MEDS: SILDENAFIL 20 MG TABLET PO SCH ×3 (09:35→20:32)
[2016-09-30] MEDS: FUROSEMIDE 40 MG/4 ML VIAL IV SCH (09:35)
[2016-09-30] MEDS: POTASSIUM CHLORIDE 20 MEQ TABLET PO SCH (09:35)
--- NOTE | 2016-09-30 10:09 | Cardiology Progress Note ---
Cardiology - PN: Subj Interval history: Cardiology note Postop day #3 emergent embolectomy for saddle thrombus caught in the PFO with pericardial patch interatrial septum Alert and responsive Appetite good Telemetry shows steady sinus rhythm No temperature Decreased breath sounds but fairly clear Regular rhythm no gallop or murmur Incision looks good No leg edema Lab data today Hemoglobin 10.0 hematocrit 30.5 white count 11.5 platelet count 267,000 Sodium 142 potassium 4.1 chloride 105 CO2 29 BUN 12 creatinine 0.80 glucose 84 Impression Status post emergent embolectomy for large biatrial thrombus caught in the PFO Status post pulmonary embolus September 23 status post acute right heart failure Cocaine abuse Hypertension Plan Eliquis 10 mg twice daily Ambulate and monitor Home soon Exam (Progress Note) - Constitutional Vitals: Period Temp Pulse Resp BP Sys/Rodríguez Pulse Ox Last 24 Hr 97.7 F-100.0 F 75-85 16-31 112-157/53-86 91-100 Result/EKG - Labs CBC & BMP: 09/30/16 04:29 09/30/16 04:29 Labs: Laboratory Results - last 24 hr 09/29/16 09/30/16 09/30/16 18:16 04:29 04:29 WBC 11.5 D RBC 3.58 L Hgb 10.0 L Hct 30.5 L MCV 85.2 L MCH 28 MCHC 32.8 RDW 12.7 Plt Count 267 MPV 10.3 Neut % (Auto) 67.9 Lymph % (Auto) 20.8 L [place] % (Auto) 8.8 Eos % (Auto) 1.6 Baso % (Auto) 0.2 Neut # (Auto) 7.8 H Lymph # (Auto) 2.4 [place] # (Auto) 1.0 H Eos # (Auto) 0.2 Baso # (Auto) 0.0 Immature Gran % 0.7 Nucleated RBC % 0.0 Immature Gran # 0.08 Nucleated RBCs # 0.00 Circ Anticoag PTT 33.4 D Sodium 142 Potassium 4.1 Chloride 105 Carbon Dioxide 29 Anion Gap 12.1 BUN 12 Creatinine 0.80 GFR Calculation 218 BUN/Creatinine Ratio 15.00 Glucose 84 Calculated Osmolality 281.1 Calcium 8.1 L Magnesium 1.9 Total Bilirubin 0.80 Direct Bilirubin 0.1 AST 33 ALT 61 Alkaline Phosphatase 54 Total Protein 6.5 Albumin 2.4 L Globulin 4.1 H Albumin/Globulin Ratio 0.5 L Quality Measures - VTE Contraindication to Pharmacological VTE Prophylaxis: Active Bleeding Specialty Discharge - Follow Up or Referrals - Discharge Medications No Action No Known Home Medications [No Known Home Medications]
--- NOTE | 2016-09-30 11:13 | Discharge Summary ---
Hospital Course - Hospital Course Hospital Course: 26-year-old male who recently had subsegmental PE a few months ago. He came to the ER after a few syncopal episodes as well as severe shortness of breath. A CT PE protocol in the ER showed that he had massive PE. He was taken to the [facility] and local TPA as well as E close catheter were used to dissolve the [place]. A TTE was obtained and it showed left atrial thrombus. He was kept in house after that and he was started on anticoagulations. 2 days later he was taken back to the [facility] and that transesophageal echocardiogram was done and showed the intra-atrial thrombus tripled in size and it was evident that it is in-transit and stuck in a patent foramen ovale/ASD between the right and left atria. At this moment I was consulted. I had a discussion with his family as I felt that he needs to be taken to the OR emergently otherwise he would be a very high risk for another massive PE and/or massive stroke. Family understood and I took him to the OR and I performed an emergency embolectomy, closure of the ASD with pericardial patch, the patient did well. He was extubated immediately after surgery. He needed some oxygen support. He progressed on postoperative day 1 and 2. He ambulated well. He tolerated his diet. He was restarted on heparin drip as well as Eliquis. On postoperative day 4 he was doing very well and he was ready for discharge - Time spent with patient Time with patient DS: Greater than 30 minutes Time spent discussing smoking cessation with patient: more than 10 minutes Diagnosis - Discharge Diagnosis (1) Pulmonary embolism Status: Acute Specialty Discharge - Follow Up or Referrals Follow up with: Kobi Siegel MD [Physician] - Jesus Grier [Physician] - - Discharge Medications New Apixaban [Eliquis] 10 mg PO BID #7 tablet Docusate Sodium Cap [Colace Cap] 100 mg PO BID PRN #0 capsule PRN Reason: Constipation Sildenafil [Revatio] 20 mg PO TID #30 tablet Acetaminophen Supp [Tylenol Supp] 650 mg RECTAL Q4H PRN #0 supp PRN Reason: Temp greater than 101F Acetaminophen Tab [Tylenol Tab] 325 mg PO Q4H PRN #0 tablet PRN Reason: fever, headache/body aches Apixaban [Eliquis] 5 mg PO BID #30 tablet Benzonatate [Tessalon] 200 mg PO TID PRN #0 capsule PRN Reason: Cough Calcium Chloride 250 mg IV ONCE PRN #0 syringe PRN Reason: MAP <60 w/ IVF & Phenylephrine HYDROcodone/ACETAMIN 5-325 [[place] 5-325] 1 tablet PO Q4H PRN #0 tablet PRN Reason: Pain Mild (1-3) Lisinopril [Prinivil] 10 mg PO DAILY #20 tablet Metoprolol Succinate Xl [Toprol Xl] 75 mg PO DAILY #20 tablet Discharge Plan - Discharge Data Disposition: Disch To Home/Self Care Condition at Discharge: Stable Discharge Diet: advance to your usual diet Activity: resume usual activities as tolerated Hygiene: no restrictions Weight Bearing at Discharge: full weight bearing Driving: no restrictions Contact your physician if you experience:: fever over 101, Difficulty voiding, Redness or swelling, Nausea/Vomiting, Shortness of breath, Bleeding - Discharge Medications New Apixaban [Eliquis] 10 mg PO BID #7 tablet Docusate Sodium Cap [Colace Cap] 100 mg PO BID PRN #0 capsule PRN Reason: Constipation Sildenafil [Revatio] 20 mg PO TID #30 tablet Acetaminophen Supp [Tylenol Supp] 650 mg RECTAL Q4H PRN #0 supp PRN Reason: Temp greater than 101F Acetaminophen Tab [Tylenol Tab] 325 mg PO Q4H PRN #0 tablet PRN Reason: fever, headache/body aches Apixaban [Eliquis] 5 mg PO BID #30 tablet Benzonatate [Tessalon] 200 mg PO TID PRN #0 capsule PRN Reason: Cough Calcium Chloride 250 mg IV ONCE PRN #0 syringe PRN Reason: MAP <60 w/ IVF & Phenylephrine HYDROcodone/ACETAMIN 5-325 [[place] 5-325] 1 tablet PO Q4H PRN #0 tablet PRN Reason: Pain Mild (1-3) Lisinopril [Prinivil] 10 mg PO DAILY #20 tablet Metoprolol Succinate Xl [Toprol Xl] 75 mg PO DAILY #20 tablet - Follow Up or Referral Follow Up: Kobi Siegel MD [Physician] - - Forms/Instructions Instructions: Pulmonary Embolism (GEN) Exam - Constitutional Vitals: Period Temp Pulse Resp BP Sys/Rodríguez Pulse Ox Last 24 Hr 97.7 F-100.0 F 75-85 16-24 112-140/53-86 91-100 Discharge Results Procedures and tests throughout hospitalization: Pending Orders 09/26/16 AFB Culture/Smears Routine Fungal Culture w/ Prep Routine 09/26/16 10:15 Cytology Request Routine 09/27/16 Fresh Frozen Plasma Routine Red Blood Cells Leuko Red Routine Single Donor Platelets Routine Type and Screen Routine 09/23/16 11:37 Antithrombin Activity, P Stat Antithrombin Antigen, P Stat Factor V Leiden (R506Q) Mutati Stat Homocysteine Stat Lupus Anticoag Prof Stat Protein C Activity Plasma Stat Protein C Antigen Stat Protein S Activity Plasma Stat Protein S Ag, P Stat Prothrombin [id number] Mutation, Stat Thrombin Time ([place]), P Stat Labs on day of discharge: Labs from last 24 hours 09/30/16 09/30/16 09/29/16 04:29 04:29 18:16 WBC 11.5 D RBC 3.58 L Hgb 10.0 L Hct 30.5 L MCV 85.2 L MCH 28 MCHC 32.8 RDW 12.7 Plt Count 267 MPV 10.3 Neut % (Auto) 67.9 Lymph % (Auto) 20.8 L [place] % (Auto) 8.8 Eos % (Auto) 1.6 Baso % (Auto) 0.2 Neut # (Auto) 7.8 H Lymph # (Auto) 2.4 [place] # (Auto) 1.0 H Eos # (Auto) 0.2 Baso # (Auto) 0.0 Immature Gran % 0.7 Nucleated RBC % 0.0 Immature Gran # 0.08 Nucleated RBCs # 0.00 Circ Anticoag PTT 33.4 D Sodium 142 Potassium 4.1 Chloride 105 Carbon Dioxide 29 Anion Gap 12.1 BUN 12 Creatinine 0.80 GFR Calculation 218 BUN/Creatinine Ratio 15.00 Glucose 84 Calculated Osmolality 281.1 Calcium 8.1 L Magnesium 1.9 Total Bilirubin 0.80 Direct Bilirubin 0.1 AST 33 ALT 61 Alkaline Phosphatase 54 Total Protein 6.5 Albumin 2.4 L Globulin 4.1 H Albumin/Globulin Ratio 0.5 L DS: Provider Date of admission: 09/23/16 11:21 Primary care physician: . No PCP Attending physician on admission: Evin Stroud MD Consults: 09/25/16 13:54 Consult to Physician [CONS] Routine Comment: Hypercoagulabe needing lifelong anticoagulation Consulting Provider: Adolfo Terrell Consulting Provider Notified: Yes When should Consulting Provider be notified: Now Person Notified: MD bonds Date Notified: 09/25/16 Time Notified: 14:03 09/25/16 14:00 Consult to Pharmacy [CONS] Routine Reason for Pharmacy Consult: Other Comment: convert eliquis to lovenox treatment dose 09/27/16 10:00 Consult to Physician [CONS] Routine Comment: for cv surgery for embolectomy Consulting Provider: Jesus Grier Consulting Provider Notified: Yes When should Consulting Provider be notified: Now Consult to Specialist Group: Cardiothoracic Surgery When should Consulting Provider be notified: Now Person Notified: jesus [email or web address] Date Notified: 09/27/16 Time Notified: 10:05 Consult Notification Comment: cardiovascular surgeon here to see pt. 09/29/16 14:34 Consult to Physical Therapy [CONS] Routine Reason for Physical Therapy: Evaluate and Treat Start Therapy: Today 09/23/16 13:12 Consult to Physician [CONS] Routine Comment: possible ekos Consulting Provider: Kobi Siegel 09/23/16 17:04 Consult to Pharmacy [CONS] Routine Reason for Pharmacy Consult: Adjust Meds Renal Funct 09/24/16 10:32 Consult to Case Mgmt/Social Srvs [CONS] Routine Reason for Case Mgmt/Social Srvs: Other Consult Comment: assistance with eliquis Discharging clinician: Jesus Grier Expected date of discharge: 10/01/16
--- NOTE | 2016-10-01 08:53 | Cardiology Progress Note ---
Cardiology - PN: Subj Interval history: Cardiology note Postop day #4 emergent embolectomy for saddle thrombus in the PFO with pericardial patch repair of interatrial septum No temperature Appetite good Telemetry shows steady sinus rhythm O2 sat 97 on 2 L Blood pressure 124/84 in the right arm by me Decreased breath sounds but clear Regular rhythm no murmur or gallop. Incision looks good. Impression Postop day #4 emergent embolectomy for saddle thrombus caught in the PFO Status post pulmonary embolus September 23, 2016 Hypertension Cocaine abuse Plan Ambulate and monitor Eliquis 10 mg twice daily Office follow-up with Dr. Siegel Home per Dr. Troy Schmitz Exam (Progress Note) - Constitutional Vitals: Period Temp Pulse Resp BP Sys/Rodríguez Pulse Ox Last 24 Hr 97.2 F-99.0 F 87-91 16-20 110-135/52-68 96-100 Result/EKG - Labs CBC & BMP: 09/30/16 04:29 09/30/16 04:29 Quality Measures - VTE Contraindication to Pharmacological VTE Prophylaxis: Active Bleeding Specialty Discharge - Follow Up or Referrals Follow up with: Gwen Grier [Physician] - 10/24/16 10:00 am Kobi Siegel MD [Physician] - - Discharge Medications New Apixaban [Eliquis] 10 mg PO BID #7 tablet Docusate Sodium Cap [Colace Cap] 100 mg PO BID PRN #0 capsule PRN Reason: Constipation Sildenafil [Revatio] 20 mg PO TID #30 tablet Acetaminophen Supp [Tylenol Supp] 650 mg RECTAL Q4H PRN #0 supp PRN Reason: Temp greater than 101F Acetaminophen Tab [Tylenol Tab] 325 mg PO Q4H PRN #0 tablet PRN Reason: fever, headache/body aches Apixaban [Eliquis] 5 mg PO BID #30 tablet Benzonatate [Tessalon] 200 mg PO TID PRN #0 capsule PRN Reason: Cough Calcium Chloride 250 mg IV ONCE PRN #0 syringe PRN Reason: MAP <60 w/ IVF & Phenylephrine HYDROcodone/ACETAMIN 5-325 [[place] 5-325] 1 tablet PO Q4H PRN #0 tablet PRN Reason: Pain Mild (1-3) Lisinopril [Prinivil] 10 mg PO DAILY #20 tablet Metoprolol Succinate Xl [Toprol Xl] 75 mg PO DAILY #20 tablet
[2016-10-01] MEDS: METOPROLOL SUCCINATE XL 25 MG TABLET PO SCH (08:56)
[2016-10-01] MEDS: POTASSIUM CHLORIDE 20 MEQ TABLET PO SCH (08:57)
[2016-10-01] MEDS: NICOTINE 21 MG/24 HR PATCH TRANSDERM SCH (08:57)
[2016-10-01] MEDS: SILDENAFIL 20 MG TABLET PO SCH (08:57)
[2016-10-01] MEDS: APIXABAN 5 MG TABLET PO SCH (08:57)
[2016-10-01] MEDS: LISINOPRIL 10 MG TABLET PO SCH (08:57)
[2016-10-01] MEDS: PANTOPRAZOLE 40 MG TABLET PO SCH (08:57)
[2016-10-01] MEDS: FUROSEMIDE 40 MG/4 ML VIAL IV SCH (08:58)
[2016-10-01 12:17] VITALS: BP 131/67
[2016-10-03 12:01] LABS: Protein C Antigen 62 % (70-150)
[2016-10-06] MEDS ORDERED: APIXABAN 5 MG TABLET PO SCH (21:00)
== END 2016-10-01 15:46 | disposition home or self-care (01) | DRG 981 ==
LOC: EDUNIT# → EDBD → N.ED 09:59 → N.EDINP 11:21 → SUATTDRO 11:21 → N.TELEN 11:53 → N.CC 15:38 → N.TELEN 09-24 14:36 → N.5E 09-25 09:43 → N.TELEN 09-25 09:45 → N.5E 09-25 13:25 → N.CVR 09-27 10:59 → N.ICU 09-28 10:00 → N.TELES 09-29 16:50
PROVIDERS: ADMIT Internal Medicine Geriatric Medicine; ATTEND Thoracic Surgery (Cardiothoracic Vascular Surgery)
PROC: IRTHORA (2016-09-26 10:35)

== ENCOUNTER 2018-09-09 19:54 | Inpatient (IN) ==
[2018-09-09 20:41] LABS: Basophils % 0.4 % (0.0-0.8); Eosinophils # 0.4 10*3/uL (0.0-0.87); Hematocrit 44.5 VOL% (42.0-52.0); Hemoglobin 14.4 GM/DL (14.0-18.0); Immature Granulocytes % 0.5 %; Immature Granulocytes Absolute 0.05 #; Lymphocytes % 29.9 % (21.2-54.2); Mean Corpuscular HGB Conc 32.4 GM/DL (32-36); Mean Corpuscular Hemoglobin 29 PG (27-34); Mean Corpuscular Volume 87.9 FL (87-102); Mean Platelet Volume 9.8 FL (9.6-12.0); Monocytes # 0.6 10*3/uL (0.11-0.8); Monocytes % 5.4 % (1.7-12.7); Neutrophils # 6.1 10*3/uL (1.4-7.4); Neutrophils % 59.8 % (38.7-73.9); Platelet Count 243 T/CUMM (130-400); Red Blood Count 5.06 MC/CUMM (3.8-5.5); Red Cell Distribution Width 13.4 % (9.3-17.3); White Blood Count 10.1 T/CUMM (4-12)
[2018-09-09 20:51] LABS: INR 0.9; Partial Thromboplastin Time 30.3 SECS (0-40)
[2018-09-09] MEDS ORDERED: methylPREDNISolone SOD SUC 125 MG/2 ML VIAL IV STA (21:00)
[2018-09-09] MEDS ORDERED: diphenhydrAMINE 50 MG/1 ML VIAL IV STA (21:00)
[2018-09-09] MEDS ORDERED: FAMOTIDINE 20 MG/2 ML VIAL IV STA (21:00)
[2018-09-09 21:10] LABS: Alanine Aminotransferase 18 U/L (16-61); Albumin 3.1 G/DL (3.4-5.0); Alkaline Phosphatase 90 U/L (45-117); Aspartate Amino Transferase 19 U/L (0-37); Bilirubin,Total < 0.39 MG/DL (0.2-1.0); Blood Urea Nitrogen 11 MG/DL (7-18); Calcium 8.3 MG/DL (8.5-10.1); Glucose 91 MG/DL (74-106); Osmolality,Calculated 277.4 MOS/KG (273-304); Potassium 3.7 MMOL/L (3.5-5.1); Sodium 140 MMOL/L (136-145); Total Protein 9.4 G/DL (6.4-8.3)
[2018-09-09 21:12] LABS: Troponin I 0.418 NG/ML (0.00-0.045)
[2018-09-09] MEDS ORDERED: SODIUM CHLORIDE 0.9% 1,000 ML IV STA (21:36)
[2018-09-09] MEDS ORDERED: HEPARIN 1,000 UNIT/1 ML VIAL IV STA (22:17)
[2018-09-09] MEDS: HEPARIN DRIP 25,000 UNITS/500 ML PREMIX IV SCH (23:14)
[2018-09-09] MEDS ORDERED: ZALEPLON 5 MG CAPSULE PO PRN (23:30)
[2018-09-09] MEDS ORDERED: ALBUTEROL 2.5 MG/3 ML NEB RESP TX PRN (23:30)
[2018-09-09] MEDS ORDERED: DOCUSATE SODIUM 100 MG CAPSULE PO PRN (23:30)
[2018-09-09] MEDS ORDERED: ONDANSETRON 4 MG/2 ML VIAL IV PRN (23:30)
[2018-09-10] MEDS: SODIUM CHLORIDE 0.9% 1,000 ML IV SCH ×3 (01:15→16:56)
[2018-09-10 05:19] LABS: Basophils % 0.2 % (0.0-0.8); Eosinophils % 0.2 % (0.00-10.9); Hematocrit 42.9 VOL% (42.0-52.0); Hemoglobin 13.6 GM/DL (14.0-18.0); Immature Granulocytes % 0.3 %; Immature Granulocytes Absolute 0.02 #; Mean Corpuscular HGB Conc 31.7 GM/DL (32-36); Mean Corpuscular Hemoglobin 28 PG (27-34); Mean Corpuscular Volume 89.4 FL (87-102); Mean Platelet Volume 10.3 FL (9.6-12.0); Monocytes # 0.1 10*3/uL (0.11-0.8); Monocytes % 0.9 % (1.7-12.7); Neutrophils # 5.4 10*3/uL (1.4-7.4); Neutrophils % 82.4 % (38.7-73.9); Platelet Count 182 T/CUMM (130-400); Red Cell Distribution Width 13.4 % (9.3-17.3); White Blood Count 6.5 T/CUMM (4-12)
[2018-09-10 05:37] LABS: Calcium 8.3 MG/DL (8.5-10.1); Osmolality,Calculated 278.4 MOS/KG (273-304); Potassium 4.2 MMOL/L (3.5-5.1)
[2018-09-10] MEDS: HEPARIN DRIP 25,000 UNITS/500 ML PREMIX IV SCH (08:43)
[2018-09-10] MEDS ORDERED: APIXABAN 5 MG TABLET PO SCH (09:00)
[2018-09-10] MEDS ORDERED: LIDOCAINE 1% 20 ML VIAL ONE (09:19)
[2018-09-10] MEDS ORDERED: SODIUM CHLORIDE 0.9% 1,000 ML IV SCH ×2 (09:30)
[2018-09-10] MEDS ORDERED: ALTEPLASE 6 MG in SODIUM CHLORIDE 0.9% 120 ML IV SCH (09:30)
[2018-09-10] MEDS ORDERED: MIDAZOLAM 2 MG/2 ML VIAL ONE (09:42)
[2018-09-10] MEDS ORDERED: HYDROmorphone 2 MG/1 ML VIAL ONE (09:42)
[2018-09-10] MEDS ORDERED: ACETAMINOPHEN 325 MG TABLET PO PRN (10:28)
[2018-09-10 10:39] LABS: Partial Thromboplastin Time 89.2 SECS (0-40)
[2018-09-10] MEDS ORDERED: HEPARIN DRIP 25,000 UNITS/500 ML PREMIX IV SCH ×2 (11:21→11:30)
[2018-09-10 16:12] LABS: PT Patient Result 10.8 SECS
[2018-09-10] MEDS: PANTOPRAZOLE 40 MG TABLET PO SCH (16:56)
[2018-09-10 17:23] LABS: Barbiturates Screen,Urine Negative (Negative); Benzodiazepines Screen,Urine Positive (Negative); Cannabinoid Screen,Urine Negative (Negative); Opiate Screen,Urine Positive (Negative); Phencyclidine Screen,Urine Negative (Negative)
[2018-09-10 21:21] LABS: Partial Thromboplastin Time 54.8 SECS (0-40)
[2018-09-10] MEDS: APIXABAN 5 MG TABLET PO SCH (22:01)
[2018-09-10] MEDS: LISINOPRIL 2.5 MG TABLET PO SCH (22:01)
[2018-09-11] MEDS: SODIUM CHLORIDE 0.9% 1,000 ML IV SCH ×3 (00:57→20:50)
[2018-09-11 05:22] LABS: Basophils % 0.3 % (0.0-0.8); Eosinophils # 0.1 10*3/uL (0.0-0.87); Eosinophils % 0.7 % (0.00-10.9); Hematocrit 37.8 VOL% (42.0-52.0); Hemoglobin 11.7 GM/DL (14.0-18.0); Immature Granulocytes % 0.5 %; Immature Granulocytes Absolute 0.06 #; Lymphocytes # 2.5 10*3/uL (1.4-4.0); Lymphocytes % 22.3 % (21.2-54.2); Mean Corpuscular Hemoglobin 28 PG (27-34); Mean Corpuscular Volume 90.2 FL (87-102); Mean Platelet Volume 10.4 FL (9.6-12.0); Monocytes # 0.6 10*3/uL (0.11-0.8); Monocytes % 5.5 % (1.7-12.7); Neutrophils # 7.8 10*3/uL (1.4-7.4); Neutrophils % 70.7 % (38.7-73.9); Platelet Count 191 T/CUMM (130-400); Red Blood Count 4.19 MC/CUMM (3.8-5.5); Red Cell Distribution Width 13.4 % (9.3-17.3)
[2018-09-11 05:32] LABS: INR 0.9; PT Patient Result 10.2 SECS
[2018-09-11 05:42] LABS: Calcium 7.7 MG/DL (8.5-10.1); Potassium 3.6 MMOL/L (3.5-5.1)
[2018-09-11 05:45] LABS: Calcium 7.8 MG/DL (8.5-10.1); Potassium 3.5 MMOL/L (3.5-5.1)
[2018-09-11] MEDS: LISINOPRIL 2.5 MG TABLET PO SCH ×2 (08:15→21:23)
[2018-09-11] MEDS: PANTOPRAZOLE 40 MG TABLET PO SCH (08:16)
[2018-09-11] MEDS: APIXABAN 5 MG TABLET PO SCH ×2 (08:16→21:23)
[2018-09-11 08:59] LABS: Partial Thromboplastin Time 28.5 SECS (0-40)
[2018-09-12 03:32] LABS: Basophils % 0.5 % (0.0-0.8); Eosinophils # 0.2 10*3/uL (0.0-0.87); Eosinophils % 2.4 % (0.00-10.9); Hematocrit 35.7 VOL% (42.0-52.0); Hemoglobin 11.1 GM/DL (14.0-18.0); Immature Granulocytes % 0.4 %; Immature Granulocytes Absolute 0.03 #; Lymphocytes # 2.8 10*3/uL (1.4-4.0); Lymphocytes % 35.3 % (21.2-54.2); Mean Corpuscular HGB Conc 31.1 GM/DL (32-36); Mean Corpuscular Hemoglobin 28 PG (27-34); Mean Corpuscular Volume 88.8 FL (87-102); Mean Platelet Volume 9.8 FL (9.6-12.0); Monocytes # 0.5 10*3/uL (0.11-0.8); Monocytes % 6.9 % (1.7-12.7); Neutrophils # 4.3 10*3/uL (1.4-7.4); Neutrophils % 54.5 % (38.7-73.9); Platelet Count 196 T/CUMM (130-400); Red Blood Count 4.02 MC/CUMM (3.8-5.5); Red Cell Distribution Width 13.2 % (9.3-17.3); White Blood Count 7.8 T/CUMM (4-12)
[2018-09-12 03:49] LABS: Calcium 7.7 MG/DL (8.5-10.1); Potassium 3.6 MMOL/L (3.5-5.1)
[2018-09-12] MEDS: SODIUM CHLORIDE 0.9% 1,000 ML IV SCH ×2 (05:50→12:05)
[2018-09-12] MEDS: LISINOPRIL 2.5 MG TABLET PO SCH (08:43)
[2018-09-12] MEDS: PANTOPRAZOLE 40 MG TABLET PO SCH (08:43)
[2018-09-12] MEDS ORDERED: APIXABAN 5 MG TABLET PO SCH (09:00)
[2018-09-12 12:05] VITALS: BP 101/73
[2018-09-13] MEDS ORDERED: LISINOPRIL 5 MG TABLET PO SCH (09:00)
== END 2018-09-12 14:28 | disposition home or self-care (01) | DRG 176 ==
LOC: N.ED 19:54 → N.EDINP 22:56 → N.ICU 23:53
PROVIDERS: ADMIT Internal Medicine; ATTEND Internal Medicine

== ENCOUNTER 2019-03-13 15:53 | Observation (INO) ==
[2019-03-13] MEDS ORDERED: MORPHINE 4 MG/1 ML VIAL IV STA (18:04)
[2019-03-13] MEDS ORDERED: ONDANSETRON 4 MG/2 ML VIAL IV STA (18:04)
[2019-03-13] MEDS ORDERED: FUROSEMIDE 100 MG/10 ML VIAL IV STA (18:04)
[2019-03-13] MEDS ORDERED: ALBUTEROL/IPRATROPIUM 3 ML NEB RESP TX STA (18:04)
[2019-03-13 18:15] LABS: Basophils # 0.1 10*3/uL (0.0-0.2); Basophils % 0.4 % (0.0-0.8); Eosinophils # 0.2 10*3/uL (0.0-0.87); Eosinophils % 1.3 % (0.00-10.9); Hematocrit 44.6 VOL% (42.0-52.0); Hemoglobin 13.8 GM/DL (14.0-18.0); Immature Granulocytes % 0.5 %; Immature Granulocytes Absolute 0.06 #; Lymphocytes # 2.2 10*3/uL (1.4-4.0); Lymphocytes % 19.2 % (21.2-54.2); Mean Corpuscular HGB Conc 30.9 GM/DL (32-36); Mean Corpuscular Volume 87.6 FL (87-102); Mean Platelet Volume 9.9 FL (9.6-12.0); Monocytes % 6.7 % (1.7-12.7); Neutrophils % 71.9 % (38.7-73.9); Platelet Count 363 T/CUMM (130-400); Red Blood Count 5.09 MC/CUMM (3.8-5.5); Red Cell Distribution Width 14.8 % (9.3-17.3); White Blood Count 11.4 T/CUMM (4-12)
[2019-03-13 18:24] LABS: PT Patient Result 10.4 SECS
[2019-03-13 18:31] LABS: Albumin 3.3 G/DL (3.4-5.0); Bilirubin,Total 0.4 MG/DL (0.2-1.0); Calcium 8.9 MG/DL (8.5-10.1); Osmolality,Calculated 280.3 MOS/KG (273-304); Total Protein 8.6 G/DL (6.4-8.3)
[2019-03-13 19:55] LABS: Apearance,Urine CLEAR (Clear); Bilirubin,Urine Negative (Negative); Blood, Urine Negative (Negative); Glucose,Urine (UA) Negative (Negative); Ketones,Urine Negative (Negative); Mucus,Urine Occasional /LPF (Occasional); Nitrite,Urine Negative (Negative); Protein,Urine Negative; RBC,Urine 1 /HPF (0-4); Urine Color Yellow (Yellow); Urine Specific Gravity 1.026 (1.001-1.035); WBC,Urine <1 /HPF (0-6)
[2019-03-13 20:03] LABS: Barbiturates Screen,Urine Negative (Negative); Benzodiazepines Screen,Urine Negative (Negative); Cannabinoid Screen,Urine Negative (Negative); Opiate Screen,Urine Negative (Negative); Phencyclidine Screen,Urine Negative (Negative)
[2019-03-13] MEDS ORDERED: diphenhydrAMINE 50 MG/1 ML VIAL IV ONE (22:12)
[2019-03-13] MEDS ORDERED: MORPHINE 4 MG/1 ML VIAL IV PRN (23:05)
[2019-03-13] MEDS ORDERED: FAMOTIDINE 20 MG/2 ML VIAL IV STA (23:05)
[2019-03-13] MEDS ORDERED: ACETAMINOPHEN 325 MG TABLET PO PRN (23:05)
[2019-03-13] MEDS ORDERED: methylPREDNISolone SOD SUC 125 MG/2 ML VIAL IV STA (23:05)
[2019-03-13] MEDS ORDERED: NITROGLYCERIN SL 0.4 MG TABLET SL PRN (23:05)
[2019-03-13] MEDS ORDERED: diphenhydrAMINE CAP 25 MG CAPSULE PO PRN (23:05)
[2019-03-13] MEDS ORDERED: ONDANSETRON 4 MG/2 ML VIAL IV PRN (23:05)
[2019-03-13] MEDS: APIXABAN 5 MG TABLET PO SCH (23:40)
[2019-03-14 03:05] LABS: Basophils % 0.3 % (0.0-0.8); Eosinophils % 0.1 % (0.00-10.9); Hematocrit 44.3 VOL% (42.0-52.0); Hemoglobin 13.9 GM/DL (14.0-18.0); Immature Granulocytes % 0.4 %; Immature Granulocytes Absolute 0.04 #; Lymphocytes # 1.1 10*3/uL (1.4-4.0); Lymphocytes % 10.6 % (21.2-54.2); Mean Corpuscular HGB Conc 31.4 GM/DL (32-36); Mean Corpuscular Volume 86.2 FL (87-102); Mean Platelet Volume 9.4 FL (9.6-12.0); Monocytes % 1.1 % (1.7-12.7); Neutrophils % 87.5 % (38.7-73.9); Platelet Count 381 T/CUMM (130-400); Red Blood Count 5.14 MC/CUMM (3.8-5.5); Red Cell Distribution Width 14.9 % (9.3-17.3); White Blood Count 10.6 T/CUMM (4-12)
[2019-03-14 03:37] LABS: Osmolality,Calculated 274.8 MOS/KG (273-304); Risk Ratio 3.1; VLDL CHOLESTEROL 10.8 MG/DL
[2019-03-14] MEDS ORDERED: POTASSIUM CHLORIDE 20 MEQ TABLET PO PRN (04:55)
[2019-03-14] MEDS: APIXABAN 5 MG TABLET PO SCH (09:59)
[2019-03-14] MEDS ORDERED: POTASSIUM CHLORIDE 20 MEQ TABLET PO ONE (16:04)
[2019-03-14 16:30] VITALS: BP 133/68
== END 2019-03-14 16:57 | disposition home or self-care (01) ==
LOC: N.ED 15:53 → N.EDINP 15:53 → N.4E 21:52
PROVIDERS: ADMIT Internal Medicine; ATTEND Internal Medicine

== ENCOUNTER 2021-02-16 11:19 | Inpatient (IN) ==
[2021-02-16] MEDS ORDERED: AMPICILLIN/SULBACTAM 3,000 MG in SODIUM CHLORIDE 0.9% 100 ML IV STA (11:57)
[2021-02-16] MEDS ORDERED: SODIUM CHLORIDE 0.9% 500 ML IV STA (11:57)
[2021-02-16 12:46] LABS: Basophils % 0.4 % (0.0-0.8); Eosinophils # 0.1 10*3/uL (0.0-0.87); Eosinophils % 1.1 % (0.00-10.9); Hematocrit 42.1 VOL% (42.0-52.0); Hemoglobin 13.5 GM/DL (14.0-18.0); Immature Granulocytes % 0.4 %; Immature Granulocytes Absolute 0.04 #; Lymphocytes # 1.8 10*3/uL (1.4-4.0); Lymphocytes % 17.8 % (21.2-54.2); Mean Corpuscular HGB Conc 32.1 GM/DL (32-36); Mean Corpuscular Volume 86.6 FL (87-102); Mean Platelet Volume 9.1 FL (9.6-12.0); Monocytes % 5.4 % (1.7-12.7); Neutrophils % 74.9 % (38.7-73.9); Platelet Count 415 T/CUMM (130-400); Red Blood Count 4.86 MC/CUMM (3.8-5.5); Red Cell Distribution Width 13.6 % (9.3-17.3); White Blood Count 9.9 T/CUMM (4-12)
[2021-02-16] MEDS ORDERED: KETOROLAC 30 MG/1 ML VIAL IV PRN (12:48)
[2021-02-16] MEDS ORDERED: ACETAMINOPHEN 325 MG TABLET PO PRN (12:48)
[2021-02-16] MEDS ORDERED: ALBUTEROL/IPRATROPIUM 3 ML NEB RESP TX PRN (12:48)
[2021-02-16] MEDS ORDERED: BISACODYL 5 MG TABLET PO PRN (12:48)
[2021-02-16] MEDS ORDERED: ONDANSETRON 4 MG/2 ML VIAL IV PRN (12:48)
[2021-02-16] MEDS ORDERED: HYDROmorphone 2 MG/1 ML VIAL IV PRN ×2 (12:48)
[2021-02-16] MEDS ORDERED: ENOXAPARIN 100 MG/ML SYRINGE SUBCUT SCH (13:00)
[2021-02-16 13:06] LABS: Albumin 2.6 G/DL (3.4-5.0); Bilirubin,Total 1.2 MG/DL (0.2-1.0); Calcium 8.9 MG/DL (8.5-10.1); Osmolality,Calculated 272.8 MOS/KG (273-304); Potassium 3.7 MMOL/L (3.5-5.1); Total Protein 10.1 G/DL (6.4-8.2)
[2021-02-16] MEDS ORDERED: METOPROLOL TARTRATE 5 MG/5 ML VIAL IV PRN (14:56)
[2021-02-16] MEDS: PIPERACILLIN/TAZOBACTAM 3,375 MG in SODIUM CHLORIDE 0.9% 100 ML IV SCH ×2 (15:14→20:53)
[2021-02-16] MEDS ORDERED: hydrALAZINE 20 MG/1 ML VIAL IV PRN (15:25)
[2021-02-16] MEDS: levETIRAcetam 500 MG TABLET PO SCH (20:53)
[2021-02-17] MEDS: PIPERACILLIN/TAZOBACTAM 3,375 MG in SODIUM CHLORIDE 0.9% 100 ML IV SCH ×3 (06:45→20:38)
[2021-02-17] MEDS ORDERED: LIDOCAINE 1%/EPI INJ 20 ML VIAL ONE (09:55)
[2021-02-17] MEDS ORDERED: BUPIVACAINE MPF 0.25% 30 ML VIAL ONE (09:55)
[2021-02-17] MEDS: levETIRAcetam 500 MG TABLET PO SCH ×2 (10:47→20:38)
[2021-02-17] MEDS: PANTOPRAZOLE 40 MG TABLET PO SCH (10:48)
[2021-02-17] MEDS: lisinopriL 2.5 MG TABLET PO SCH (10:48)
[2021-02-17] MEDS ORDERED: MIDAZOLAM 2 MG/2 ML VIAL ONE (10:52)
[2021-02-17] MEDS ORDERED: fentaNYL 100 MCG/2 ML VIAL ONE (10:52)
[2021-02-17] MEDS ORDERED: propofoL 200 MG/20 ML VIAL IV ONE (11:13)
[2021-02-17] MEDS ORDERED: LIDOCAINE 2% 5 ML VIAL ONE (11:13)
[2021-02-17] MEDS ORDERED: SEVOFLURANE 1 UNIT/15 MINUTE INH ONE (11:13)
[2021-02-17] MEDS ORDERED: ONDANSETRON 4 MG/2 ML VIAL ONE (11:13)
[2021-02-17] MEDS ORDERED: ONDANSETRON 4 MG/2 ML VIAL IV PRN (11:51)
[2021-02-17] MEDS ORDERED: MEPERIDINE 25 MG/1 ML VIAL IV PRN (11:51)
[2021-02-17] MEDS ORDERED: diphenhydrAMINE 50 MG/1 ML VIAL IV PRN (11:51)
[2021-02-17] MEDS ORDERED: PROMETHAZINE INJ 25 MG in SODIUM CHLORIDE 0.9% 50 ML IV PRN (11:51)
[2021-02-17] MEDS: HYDROmorphone 2 MG/1 ML VIAL IV PRN ×4 (12:00→12:15)
[2021-02-17] MEDS: APIXABAN 5 MG TABLET PO SCH (20:39)
[2021-02-18] MEDS: PIPERACILLIN/TAZOBACTAM 3,375 MG in SODIUM CHLORIDE 0.9% 100 ML IV SCH ×2 (05:02→12:26)
[2021-02-18 06:46] LABS: Basophils % 0.4 % (0.0-0.8); Eosinophils # 0.2 10*3/uL (0.0-0.87); Eosinophils % 2.5 % (0.00-10.9); Hemoglobin 11.4 GM/DL (14.0-18.0); Immature Granulocytes % 0.4 %; Immature Granulocytes Absolute 0.03 #; Lymphocytes # 1.5 10*3/uL (1.4-4.0); Lymphocytes % 19.9 % (21.2-54.2); Mean Corpuscular HGB Conc 31.7 GM/DL (32-36); Mean Corpuscular Volume 87.2 FL (87-102); Mean Platelet Volume 9.6 FL (9.6-12.0); Monocytes % 7.5 % (1.7-12.7); Neutrophils % 69.3 % (38.7-73.9); Platelet Count 367 T/CUMM (130-400); Red Blood Count 4.13 MC/CUMM (3.8-5.5); Red Cell Distribution Width 13.4 % (9.3-17.3); White Blood Count 7.6 T/CUMM (4-12)
[2021-02-18 07:17] LABS: Alanine Aminotransferase 11 U/L (16-61); Alkaline Phosphatase 69 U/L (45-117); Aspartate Amino Transferase 8 U/L (0-37); Bilirubin,Total < 0.39 MG/DL (0.2-1.0); Blood Urea Nitrogen 12 MG/DL (7-18); Calcium 8.4 MG/DL (8.5-10.1); Carbon Dioxide 26 MMOL/L (21-32); Estimated Glom Filtration Rate 140 ML/MIN; Glucose 88 MG/DL (74-106); Osmolality,Calculated 277.4 MOS/KG (273-304); Potassium 3.6 MMOL/L (3.5-5.1); Sodium 140 MMOL/L (136-145); Total Protein 8.1 G/DL (6.4-8.2)
[2021-02-18] MEDS: PANTOPRAZOLE 40 MG TABLET PO SCH (09:40)
[2021-02-18] MEDS: APIXABAN 5 MG TABLET PO SCH (09:40)
[2021-02-18] MEDS: levETIRAcetam 500 MG TABLET PO SCH (09:40)
[2021-02-18] MEDS: lisinopriL 2.5 MG TABLET PO SCH (09:41)
[2021-02-18 11:34] VITALS: BP 145/72
== END 2021-02-18 12:31 | disposition home or self-care (01) | DRG 580 ==
LOC: N.ED 11:19 → SUATTDRO 12:48 → N.EDINP 12:48 → N.3E 16:40
PROVIDERS: ADMIT Surgery; ATTEND Surgery

== ENCOUNTER 2021-07-13 09:00 | Inpatient (IN) ==
[2021-07-13 10:33] LABS: Basophils # 0.1 10*3/uL (0.0-0.2); Basophils % 0.5 % (0.0-0.8); Eosinophils # 0.2 10*3/uL (0.0-0.87); Eosinophils % 1.9 % (0.00-10.9); Hematocrit 41.3 VOL% (42.0-52.0); Hemoglobin 12.9 GM/DL (14.0-18.0); Immature Granulocytes % 0.4 %; Immature Granulocytes Absolute 0.04 #; Lymphocytes # 2.2 10*3/uL (1.4-4.0); Mean Corpuscular HGB Conc 31.2 GM/DL (32-36); Mean Corpuscular Volume 86.6 FL (87-102); Mean Platelet Volume 9.3 FL (9.6-12.0); Monocytes % 6.8 % (1.7-12.7); Neutrophils % 66.4 % (38.7-73.9); Platelet Count 411 T/CUMM (130-400); Red Blood Count 4.77 MC/CUMM (3.8-5.5); Red Cell Distribution Width 14.4 % (9.3-17.3); White Blood Count 9.1 T/CUMM (4-12)
[2021-07-13 10:39] LABS: Bilirubin,Urine Negative (Negative); Blood, Urine Negative (Negative); Glucose,Urine (UA) Negative (Negative); Ketones,Urine Negative (Negative); Mucus,Urine Occasional /LPF (Occasional); Nitrite,Urine Negative (Negative); Protein,Urine Negative; Squamous Epithelial Cell,Urine Occasional /HPF (0-10); Urine Appearance CLEAR (Clear); Urine Color Yellow (Yellow); Urine Specific Gravity 1.019 (1.001-1.035); Urine Urobilinogen < 2.0 EU/DL (0.2-1.0)
[2021-07-13 10:54] LABS: Barbiturates Screen,Urine Negative (Negative); Benzodiazepines Screen,Urine Negative (Negative); Cannabinoid Screen,Urine Negative (Negative); Opiate Screen,Urine Negative (Negative); Phencyclidine Screen,Urine Negative (Negative)
[2021-07-13 10:54] LABS: PT Patient Result 10.9 SECS (10.5-12.0); Partial Thromboplastin Time 27.3 SECS (23.8-32.1)
[2021-07-13 10:57] LABS: Albumin 2.7 G/DL (3.4-5.0); Bilirubin,Total 0.5 MG/DL (0.20-1.00); Calcium 8.9 MG/DL (8.5-10.1); Osmolality,Calculated 270.8 MOS/KG (273-304); Potassium 3.2 MMOL/L (3.5-5.1); Total Protein 10.3 G/DL (6.4-8.2)
[2021-07-13] MEDS ORDERED: DEXTROSE 50% 25 GM/50 ML VIAL IV PRN (11:10)
[2021-07-13] MEDS ORDERED: ACETAMINOPHEN 325 MG TABLET PO PRN (11:10)
[2021-07-13] MEDS ORDERED: GLUCAGON 1 MG VIAL IM PRN (11:10)
[2021-07-13] MEDS ORDERED: POTASSIUM CHLORIDE 20 MEQ TABLET PO PRN (11:24)
[2021-07-13] MEDS: HEPARIN DRIP 25,000 UNITS/500 ML PREMIX IV SCH (11:35)
[2021-07-13] MEDS: levETIRAcetam 500 MG TABLET PO SCH (20:10)
[2021-07-13 20:19] LABS: INR 1.1; PT Patient Result 11.8 SECS (10.5-12.0); Partial Thromboplastin Time 28.8 SECS (23.8-32.1)
[2021-07-14] MEDS: HEPARIN DRIP 25,000 UNITS/500 ML PREMIX IV SCH ×2 (03:06→12:08)
[2021-07-14 03:53] LABS: Basophils # 0.1 10*3/uL (0.0-0.2); Basophils % 0.5 % (0.0-0.8); Eosinophils # 0.3 10*3/uL (0.0-0.87); Eosinophils % 2.4 % (0.00-10.9); Hematocrit 38.9 VOL% (42.0-52.0); Immature Granulocytes % 0.4 %; Immature Granulocytes Absolute 0.04 #; Mean Corpuscular HGB Conc 30.8 GM/DL (32-36); Mean Corpuscular Volume 85.9 FL (87-102); Mean Platelet Volume 9.6 FL (9.6-12.0); Monocytes % 8.1 % (1.7-12.7); Neutrophils % 60.6 % (38.7-73.9); Platelet Count 374 T/CUMM (130-400); Red Blood Count 4.53 MC/CUMM (3.8-5.5); Red Cell Distribution Width 14.5 % (9.3-17.3); White Blood Count 10.8 T/CUMM (4-12)
[2021-07-14 04:16] LABS: Calcium 8.2 MG/DL (8.5-10.1); Risk Ratio 2.92; VLDL Cholesterol 16.4 MG/DL
[2021-07-14 04:23] LABS: Osmolality,Calculated 274.7 MOS/KG (273-304); Potassium 3.5 MMOL/L (3.5-5.1)
[2021-07-14] MEDS: methylPREDNISolone SOD SUC 125 MG/2 ML VIAL IV SCH ×3 (11:55→21:51)
[2021-07-14] MEDS: FAMOTIDINE 20 MG/2 ML VIAL IV SCH ×2 (12:00→21:50)
[2021-07-14] MEDS: diphenhydrAMINE 50 MG/1 ML VIAL IV SCH ×2 (12:06→17:52)
[2021-07-14 12:46] LABS: Protein C Activity Plasma 85 % (70 - 150)
[2021-07-14] MEDS: levETIRAcetam 500 MG TABLET PO SCH ×2 (15:09→21:50)
[2021-07-14] MEDS: PANTOPRAZOLE 40 MG TABLET PO SCH (15:10)
[2021-07-14 16:06] LABS: Protein S Activity Plasma 123 % (65 - 160)
[2021-07-14] MEDS ORDERED: DEXTROSE 50% 25 GM/50 ML VIAL IV PRN (17:51)
[2021-07-14] MEDS ORDERED: GLUCAGON 1 MG VIAL IM PRN (17:51)
[2021-07-15] MEDS: diphenhydrAMINE 50 MG/1 ML VIAL IV SCH ×2 (00:11→06:04)
[2021-07-15 01:32] LABS: Basophils % 0.1 % (0.0-0.8); Hematocrit 41.3 VOL% (42.0-52.0); Hemoglobin 13.1 GM/DL (14.0-18.0); Immature Granulocytes % 0.6 %; Lymphocytes # 1.3 10*3/uL (1.4-4.0); Mean Corpuscular HGB Conc 31.7 GM/DL (32-36); Mean Corpuscular Volume 84.6 FL (87-102); Mean Platelet Volume 9.3 FL (9.6-12.0); Monocytes % 0.3 % (1.7-12.7); Platelet Count 409 T/CUMM (130-400); Red Blood Count 4.88 MC/CUMM (3.8-5.5); White Blood Count 15.8 T/CUMM (4-12)
[2021-07-15 01:46] LABS: Osmolality,Calculated 274.5 MOS/KG (273-304); Potassium 3.6 MMOL/L (3.5-5.1)
[2021-07-15] MEDS: HEPARIN DRIP 25,000 UNITS/500 ML PREMIX IV SCH (05:11)
[2021-07-15] MEDS: methylPREDNISolone SOD SUC 125 MG/2 ML VIAL IV SCH ×2 (06:04→10:01)
[2021-07-15 08:32] LABS: PT Patient Result 10.8 SECS (10.5-12.0)
[2021-07-15 09:51] LABS: DRVVT Screen Ratio 0.98 ratio (<1.20); INR 1.1 (0.9-1.1)
[2021-07-15] MEDS: PANTOPRAZOLE 40 MG TABLET PO SCH (09:54)
[2021-07-15] MEDS: levETIRAcetam 500 MG TABLET PO SCH (09:54)
[2021-07-15] MEDS: FAMOTIDINE 20 MG/2 ML VIAL IV SCH (09:56)
[2021-07-15 13:57] VITALS: BP 142/80
[2021-07-15] MEDS ORDERED: APIXABAN 5 MG TABLET PO SCH (21:00)
[2021-07-20 13:16] LABS: F5DNA Reviewed By SEE COMMENTS; Factor V Leiden (R506Q) Mutati Negative (Negative)
== END 2021-07-15 14:30 | disposition home or self-care (01) | DRG 300 ==
LOC: N.ED 09:00 → SUATTDRO 11:10 → N.EDINP 11:10 → N.TELEN 16:34
PROVIDERS: ADMIT Internal Medicine; ATTEND Internal Medicine